=== PATIENT | female | born 1940 | race African-American/Black ===

== ENCOUNTER 2016-08-24 11:21 | Inpatient (IN) | payer OTHER ==
--- NOTE | 2016-08-24 12:21 | C.PDOC ---
History Of Present Illness Patient is a 76 year old female who presents to the ER with a complaint of swollen feet, swollen abdomen, SOB, and abdominal pain for the past 2 weeks as per family who was translating for the patient. Patient's family states she just came from [place] a month ago and are unaware of her PMHx. Denies nausea, vomiting, and diarrhea. Time Seen by Provider: 08/24/16 11:42 Chief Complaint (Nursing): Respiratory Distress History Per: Family History/Exam Limitations: language barrier Onset/Duration Of Symptoms: Days (14) Current Symptoms Are (Timing): Still Present Severity: Moderate Location Of Pain/Discomfort: Diffuse Associated Symptoms: denies: Nausea, Vomiting, Diarrhea Past Medical History Reviewed: Historical Data, Nursing Documentation, Vital Signs Vital Signs: Last Vital Signs Temp 97.4 F L 08/24/16 13:00 Pulse 104 H 08/24/16 13:00 Resp 18 08/24/16 13:00 BP 149/89 08/24/16 13:00 Pulse Ox 96 08/24/16 13:09 - Medical History PMH: HTN Surgical History: No Surg Hx Family History: States: No Known Family Hx - Social History Hx Alcohol Use: No Hx Substance Use: No - Immunization History Hx Tetanus Toxoid Vaccination: Yes Hx Influenza Vaccination: No Hx Pneumococcal Vaccination: No Review Of Systems Except As Marked, All Systems Reviewed And Found Negative. Respiratory: Positive for: Shortness of Breath Gastrointestinal: Positive for: Abdominal Pain, Other (Abdominal swelling). Negative for: Nausea, Vomiting, Diarrhea Musculoskeletal: Positive for: Other (Lower extremity swelling) Physical Exam - Physical Exam Appears: Non-toxic Skin: Normal Color, Warm, Dry Head: Atraumatic, Normacephalic Eye(s): bilateral: Normal Inspection, PERRL, EOMI Oral Mucosa: Moist Neck: Normal ROM Chest: Symmetrical, No Tenderness Cardiovascular: Rhythm Irregular Respiratory: Decreased Breath Sounds (Bilaterally), No Rales, No Rhonchi, No Wheezing Gastrointestinal/Abdominal: Soft, No Tenderness, Distention Extremity: Pedal Edema (+3 bilaterally up to thighs), No Calf Tenderness Pulses: Left Dorsalis Pedis: Normal, Right Dorsalis Pedis: Normal Neurological/Psych: Oriented x3, Normal Speech, Normal Cognition, Normal Motor ED Course And Treatment - Laboratory Results Result Diagrams: 08/24/16 12:19 08/24/16 12:19 O2 Sat by Pulse Oximetry: 96 (on 2L) Pulse Ox Interpretation: Normal Progress Note: Blood work, EKG, and CXR ordered. Lasix IVP administered. Medical Decision Making Medical Decision Making: The patient was informed that EKG shows Afib and states this is new. Cardizem PO and Lovenox SC given as the patient is not unstable. Lasix IV ordered for Acute CHF. Patient reports mild relief of symptoms and resting comfortably. O2 sat is 97% on 2L. Disposition - Disposition Disposition: HOSPITALIZED Disposition Time: 13:18 Condition: FAIR - POA Present On Arrival: None - Clinical Impression Clinical Impression: New onset a-fib, Acute CHF - Scribe Statement The provider has reviewed the documentation as recorded by the Scribjeff Fatima All medical record entries made by the Stivenibjeff were at my direction and personally dictated by me. I have reviewed the chart and agree that the record accurately reflects my personal performance of the history, physical exam, medical decision making, and the department course for this patient. I have also personally directed, reviewed, and agree with the discharge instructions and disposition.
[2016-08-24 12:23] LABS: BASO % 0.4 % (0.0-2.0); EOS % 0.8 % (0.0-4.0); HEMATOCRIT 36.2 % (34.0-47.0); LYMPH # 1.2 K/uL (1.0-4.3); LYMPH % 19.9 % (20.0-40.0); MEAN CELL VOLUME 91.2 fL (81.0-99.0); MEAN CORPUSCULAR HEMOGLOBIN 28.5 pg (27.0-31.0); MEAN CORPUSCULAR HGB CONC 31.2 g/dL (33.0-37.0); MEAN PLATELET VOLUME 8.3 fL (7.2-11.7); MONO # 0.8 K/uL (0.0-0.8); MONO % 14.3 % (0.0-10.0); NRBC % 0.1 % (0.0-2.0); RED CELL DISTRIBUTION WIDTH 17.1 % (11.5-14.5); WHITE BLOOD COUNT 5.9 K/uL (4.8-10.8)
[2016-08-24 12:31] LABS: CHLORIDE 103 mmol/L (98-107); POTASSIUM 4.4 mmol/L (3.6-5.2); SODIUM 142 mmol/L (132-148)
[2016-08-24 12:33] LABS: GFR AFRICAN-AMERICAN > 60
[2016-08-24 12:34] LABS: ALB/GLOB RATIO 0.9 (1.0-2.1); ALKALINE PHOSPHATASE 97 U/L (38-126); ALT/SGPT 17 U/L (9-52); AST/SGOT 28 U/L (14-36); BILIRUBIN,TOTAL 1.7 mg/dL (0.2-1.3); BLOOD UREA NITROGEN 11 mg/dL (7-17); CALCIUM 8.2 mg/dl (8.6-10.4); CARBON DIOXIDE 27 mmol/L (22-30); GLUCOSE,RANDOM 81 mg/dL (65-105); TOTAL PROTEIN 7.3 g/dL (6.3-8.3)
[2016-08-24 12:38] LABS: INR 1.3
[2016-08-24] MEDS ORDERED: Enoxaparin 40 mg Syringe SC STA (13:07)
--- NOTE | 2016-08-24 13:15 | RAD ---
PROCEDURE: CHEST RADIOGRAPH, 1 VIEW HISTORY: chest pain, SOB COMPARISON: None available. FINDINGS: LUNGS: Subsegmental atelectasis right mid and left medial lung bases. . Suspect small right effusion. Left lung base is poorly delineated due to large body habitus PLEURA: No pneumothorax or pleural fluid seen. CARDIOVASCULAR: Cardiomegaly OSSEOUS STRUCTURES: Mild degenerative changes both shoulder girdles VISUALIZED UPPER ABDOMEN: Normal. OTHER FINDINGS: None. IMPRESSION: Subsegmental atelectasis right mid and left medial lung bases. . Suspect small right effusion. Left lung base is poorly delineated due to large body habitus Cardiomegaly.
[2016-08-24] MEDS ORDERED: Enoxaparin 40 mg Syringe ONE (13:21)
[2016-08-24] MEDS ORDERED: Enoxaparin 30 mg Syringe ONE (13:21)
--- NOTE | 2016-08-24 14:39 | CP.PCM.HP ---
<Michael Matt - Last Filed: 08/24/16 15:39> History of Present Illness - History of Present Illness History of Present Illness: H&P for Dr. Sheth 76yo F with unknown PMHx due to poor compliance and follow up here for evaluation of Swollen lower extremities, Abd pain for the past 3 weeks. Patient speaks Gujarati. Family at bedside who helped translate. [place] about 1 month ago. For the past 3 weeks, she has been having increasing shortness of breath and gradual increase in lower extremity swelling and pain. Patient was seeing a physician in [place] who prescribed a medication ( unknown name) and she has not been taking it regularly, last time taken was about 4 weeks ago. Patient denies any chest pain. She is normally able to walk within her home, over the past week she has been getting severely short of breath and is only able to walk 20 steps before SOB. Able to lay down flat when she sleeps. Denies cough. She also c/o some Abd pain, located diffusely but worst in the RUQ, no association with food, no N/V/D. No F/C. No sick contacts. No Headache. Denies chest pain or palpitations. Denies any weight gain PMD: None PMHx: unknown. Denies PSHx: Right hip replacement Family Hx: Denies Social Hx: recently moved to [facility] 1 month ago. Lives with son. Denies TOB. Denies ETOH. Denies illicit drugs. NKDA Meds: one med from [place], unknown name. Does not take it regularly. Last taken 4 weeks ago. Present on Admission - Present on Admission Any Indicators Present on Admission: No Review of Systems - Review of Systems All systems: reviewed and no additional remarkable complaints except - Constitutional Constitutional: absent: Chills, Fever - EENT Eyes: absent: Blurred Vision Nose/Mouth/Throat: absent: Epistaxis - Cardiovascular Cardiovascular: Dyspnea, Dyspnea on Exertion, Edema, Leg Edema, Pedal Edema. absent: Chest Pain, Diaphoresis, Palpitations, Paroxysmal Nocturnal Dyspnea, Rapid Heart Rate - Respiratory Respiratory: absent: Cough - Gastrointestinal Gastrointestinal: Abdominal Pain. absent: Diarrhea, Nausea, Vomiting - Musculoskeletal Musculoskeletal: absent: Muscle Weakness - Integumentary Integumentary: absent: Bleeding Lesions - Neurological Neurological: absent: Abnormal Gait, Abnormal Hearing - Psychiatric Psychiatric: absent: Anxiety Past Patient History - Past Social History Smoking Status: Never Smoked - CARDIAC Hx Hypertension: Yes - PSYCHIATRIC Hx Substance Use: No - SURGICAL HISTORY Hx Orthopedic Surgery: Yes (RT hip) - ANESTHESIA Hx Anesthesia: Yes Hx Anesthesia Reactions: No Meds Allergies/Adverse Reactions: Allergies Allergy/AdvReac Type Severity Reaction Status Date / Time No Known Allergies Allergy Unverified 08/24/16 11:33 Physical Exam - Constitutional Appears: Well, No Acute Distress - Head Exam Head Exam: ATRAUMATIC, NORMAL INSPECTION, NORMOCEPHALIC - Eye Exam Eye Exam: EOMI, Normal appearance. absent: Scleral icterus - ENT Exam ENT Exam: Mucous Membranes Moist - Respiratory Exam Respiratory Exam: Clear to Auscultation Bilateral Additional comments: Shallow breathing. No Wheezes, no ronchi - Cardiovascular Exam Cardiovascular Exam: Irregular Rhythm Additional comments: Hepatojugular reflex illicited. Reflex JVD seen. - GI/Abdominal Exam GI & Abdominal Exam: Soft, Tenderness (RUQ pain). absent: Guarding Additional comments: Dependent 1+ pitting edema - Extremities Exam Extremities exam: Positive for: pedal edema, tenderness (Pretibial tenderness). Negative for: calf tenderness Additional comments: Severe bilateral lower extremity 3+ pitting edema - Neurological Exam Neurological exam: Alert, Oriented x3 - Psychiatric Exam Psychiatric exam: Normal Affect, Normal Mood - Skin Skin Exam: Dry, Intact, Normal Color, Warm Results - Vital Signs Recent Vital Signs: Last Vital Signs Temp 97.4 F L 08/24/16 13:00 Pulse 102 H 08/24/16 13:29 Resp 24 08/24/16 13:29 BP 149/89 08/24/16 13:29 Pulse Ox 95 08/24/16 13:29 - Labs Result Diagrams: 08/24/16 12:19 08/24/16 12:19 Assessment & Plan - Assessment and Plan (Free Text) Assessment: 76yo F with no diagnosed PMHx here for eval of LE edema, Dyspnea on exertion. New onset A.Fib. 1. New CHF CXR - Cardiomegaly; Subsegmental R mid and lower atelectasis. Poss R pleural effusion. Lasix 20mg IV q12 f/u ECHO Trop neg on admission. F/u Trop q8 x 2 f/u TSH f/u HbA1C f/u Lipid Panel Head of bed elevation >30degrees Start Lisinopril 5mg Daily Will start Beta Yomaira after reducing cardiac load PT eval and treat Cardio consult requested, Dr. Allan Strict I&O Repeat CXR PA/Lat in AM 2. New Onset A.Fib EKG - Atrial Fibrillation. Tachycardic 102-109 Cardio consult requested, Dr. Allan Lovenox 70mg SC q12 Cardizem 30mg PO TID 3. Abd pain Dependent pitting edema mild T.Bili elevation 1.7 f/u Abd US Zofran prn 4. PPx Theraputic Lovenox No SCDs Pepcid 20mg BID Discussed case with Dr. Meryl Matt PGY1 <Brett Sheth - Last Filed: 08/24/16 16:28> Results - Vital Signs Recent Vital Signs: Last Vital Signs Temp 98.1 F 08/24/16 15:51 Pulse 89 08/24/16 15:51 Resp 20 08/24/16 15:51 BP 142/91 H 08/24/16 15:51 Pulse Ox 98 08/24/16 15:51 - Labs Result Diagrams: 08/24/16 12:19 08/24/16 12:19 Attending/Attestation - Attestation I have personally seen and examined this patient.: Yes I have fully participated in the care of the patient.: Yes I have reviewed all pertinent clinical information: Yes Notes (Text): 08/24/16 16:26 Medical attending: Patient was seen and examined by me, agree with the above note by medical affairs director. The patient was seen in ER bed 15. Family members were present as well. We reviewed the chest x-ray, as well as the EKG. It appears that the patient has congestive heart failure and will need IV Lasix to help with pulmonary congestion. Were to start a JAKE inhibitor and tomorrow if she's doing well start a beta yomaira. The patient will need echocardiogram, currently the patient is can be given Lovenox subcutaneous twice a day for anticoagulation. I explained to the family members the findings on EKG as well as the chest x-ray Thank you very much, Brett Sheth
[2016-08-24] MEDS: Enoxaparin 80 mg Syringe SC SCH (21:12)
[2016-08-25 06:30] LABS: BASO % 0.5 % (0.0-2.0); EOS # 0.1 K/uL (0.0-0.7); EOS % 1.7 % (0.0-4.0); HEMATOCRIT 33.5 % (34.0-47.0); LYMPH # 1.1 K/uL (1.0-4.3); LYMPH % 19.8 % (20.0-40.0); MEAN CELL VOLUME 90.5 fL (81.0-99.0); MEAN CORPUSCULAR HEMOGLOBIN 28.9 pg (27.0-31.0); MEAN CORPUSCULAR HGB CONC 31.9 g/dL (33.0-37.0); MEAN PLATELET VOLUME 8.4 fL (7.2-11.7); MONO # 0.8 K/uL (0.0-0.8); MONO % 13.7 % (0.0-10.0); RED CELL DISTRIBUTION WIDTH 17.2 % (11.5-14.5); WHITE BLOOD COUNT 5.5 K/uL (4.8-10.8)
[2016-08-25 06:36] LABS: CHLORIDE 101 mmol/L (98-107); POTASSIUM 3.5 mmol/L (3.6-5.2); SODIUM 143 mmol/L (132-148)
[2016-08-25 06:37] LABS: INR 1.3
[2016-08-25 06:38] LABS: ALB/GLOB RATIO 0.9 (1.0-2.1); BILIRUBIN,TOTAL 1.7 mg/dL (0.2-1.3); CARBON DIOXIDE 31 mmol/L (22-30); CHOLESTEROL 112 mg/dL (0-199); GFR AFRICAN-AMERICAN > 60; TOTAL PROTEIN 6.7 g/dL (6.3-8.3)
[2016-08-25 06:39] LABS: ALKALINE PHOSPHATASE 84 U/L (38-126); ALT/SGPT 21 U/L (9-52); AST/SGOT 25 U/L (14-36); BLOOD UREA NITROGEN 10 mg/dL (7-17); CALCIUM 7.8 mg/dl (8.6-10.4); GLUCOSE,RANDOM 80 mg/dL (65-105)
--- NOTE | 2016-08-25 09:55 | CP.PCM.PN ---
<GonzalesMervin aguilar H - Last Filed: 08/25/16 16:52> Subjective - Date & Time of Evaluation Date of Evaluation: 08/25/16 Time of Evaluation: 14:00 - Subjective Subjective: Dr. Sheth progress note: Patient seen in room with family members present translating. She says she came to the hospital because of swelling in her legs with the right leg more swollen than the left and also complaining of distended abdomen as well. She denies having any chest pain. She also denies palpitations, shortness of breath , nausea, vomiting, diarrhea, or constipation. Objective - Vital Signs/Intake and Output Vital Signs (last 24 hours): Temp Pulse Resp BP Pulse Ox 97.5 F L 91 H 20 139/82 96 08/25/16 07:00 08/25/16 07:00 08/25/16 07:00 08/25/16 07:00 08/25/16 07:00 Intake and Output: 08/25/16 08/25/16 06:59 18:59 Intake Total 0 Balance 0 - Medications Medications: Current Medications Diltiazem HCl (Cardizem) 30 mg PO TID [facility] Last Admin: 08/24/16 17:39 Dose: 30 mg Enoxaparin Sodium (Lovenox) 70 mg SC Q12H [facility] Last Admin: 08/24/16 21:12 Dose: 70 mg Famotidine (Pepcid) 20 mg PO BID [facility] Last Admin: 08/24/16 17:38 Dose: 20 mg Furosemide (Lasix) 20 mg IVP Q12 [facility] Last Admin: 08/24/16 21:12 Dose: 20 mg Lisinopril (Zestril) 5 mg PO DAILY [facility] Ondansetron HCl (Zofran Inj) 4 mg IVP Q6 PRN PRN Reason: Nausea/Vomiting Potassium Chloride (K-Dur 20 Meq Er Tab) 40 meq PO DAILY [facility] - Labs Labs: 08/25/16 06:06 08/25/16 06:06 PT 15.1 SECONDS (9.7-12.2) H 08/25/16 06:06 INR 1.3 08/25/16 06:06 APTT 43 SECONDS (21-34) H D 08/25/16 06:06 - Constitutional Appears: Non-toxic, No Acute Distress - Head Exam Head Exam: ATRAUMATIC, NORMAL INSPECTION, NORMOCEPHALIC - Eye Exam Eye Exam: Normal appearance, PERRL Pupil Exam: NORMAL ACCOMODATION - Respiratory Exam Respiratory Exam: Decreased Breath Sounds, Clear to Ausculation Bilateral, NORMAL BREATHING PATTERN. absent: Rales, Rhonchi, Wheezes, Respiratory Distress - Cardiovascular Exam Cardiovascular Exam: REGULAR RHYTHM, RRR, +S1, +S2, Murmur. absent: Gallop, Rubs - GI/Abdominal Exam GI & Abdominal Exam: Soft. absent: Tenderness - Extremities Exam Extremities Exam: Calf Tenderness, Pedal Edema. absent: Normal Inspection - Neurological Exam Neurological Exam: Alert, Awake - Skin Skin Exam: Dry, Normal Color Assessment and Plan - Assessment and Plan (Free Text) Assessment: 1. Fluid over loaded CHF suspected right sided heart failure 08/25: Dr. Allan consulted, continue lasix, echo is still pending, lipid panel is unremarkable, TSH is 14.00, however free T4 1.35 and total T3 is 1.19. have ordered a venous duplex to rule out DVT. Heart failure due to hypothyroidism. Previous note: CXR - Cardiomegaly; Subsegmental R mid and lower atelectasis. Poss R pleural effusion. Lasix 20mg IV q12 f/u ECHO Trop neg on admission. F/u Trop q8 x 2 f/u TSH f/u HbA1C f/u Lipid Panel Head of bed elevation >30degrees Start Lisinopril 5mg Daily Will start Beta Yomaira after reducing cardiac load PT eval and treat Cardio consult requested, Dr. Allan Strict I&O Repeat CXR PA/Lat in AM 2. New Onset A.Fib 08/25: Continue to monitor on tele, Lovenox and Cardizem EKG - Atrial Fibrillation. Tachycardic 102-109 Cardio consult requested, Dr. Allan Lovenox 70mg SC q12 Cardizem 30mg PO TID 3. Abd pain 08/25: ABD US is negative for any acute process, this again could be fluid overload from heart failure. follow up cmp tomorrow. Dependent pitting edema mild T.Bili elevation 1.7 f/u Abd US Zofran prn 4. PPx Theraputic Lovenox No SCDs Pepcid 20mg BID <Brett Sheth - Last Filed: 08/26/16 07:18> Objective - Vital Signs/Intake and Output Vital Signs (last 24 hours): Temp Pulse Resp BP Pulse Ox 97.4 F L 64 20 98/67 L 99 08/26/16 00:00 08/26/16 00:00 08/26/16 00:00 08/26/16 00:00 08/26/16 00:00 Intake and Output: 08/26/16 08/26/16 06:59 18:59 Intake Total 120 Balance 120 - Medications Medications: Current Medications Diltiazem HCl (Cardizem) 60 mg PO TID [facility] Last Admin: 08/25/16 17:29 Dose: 60 mg Enoxaparin Sodium (Lovenox) 70 mg SC Q12H [facility] Last Admin: 08/25/16 19:42 Dose: 70 mg Famotidine (Pepcid) 20 mg PO BID [facility] Last Admin: 08/25/16 17:29 Dose: 20 mg Furosemide (Lasix) 20 mg IVP Q12 [facility] Last Admin: 08/25/16 21:33 Dose: 20 mg Lisinopril (Zestril) 5 mg PO DAILY [facility] Last Admin: 08/25/16 10:38 Dose: 5 mg Ondansetron HCl (Zofran Inj) 4 mg IVP Q6 PRN PRN Reason: Nausea/Vomiting Pneumococcal Polyvalent Vaccine (Pneumovax 23 Vaccine) 0.5 ml IM .ONCE ONE Stop: 08/26/16 10:01 Potassium Chloride (K-Dur 20 Meq Er Tab) 40 meq PO DAILY [facility] Last Admin: 08/25/16 10:38 Dose: 40 meq - Labs Labs: 08/25/16 06:06 08/25/16 06:06 PT 15.1 SECONDS (9.7-12.2) H 08/25/16 06:06 INR 1.3 08/25/16 06:06 APTT 43 SECONDS (21-34) H D 08/25/16 06:06 Attending/Attestation - Attestation I have personally seen and examined this patient.: Yes I have fully participated in the care of the patient.: Yes I have reviewed all pertinent clinical information, including history, physical exam and plan: Yes Notes (Text): Medical Attending: Patient was seen and examined by me. Agree with the above note by the resident. The patient was reported by family at bedside to look and feel better. She is still in atrial fibrillation and HR is 80s to 90s on telemetry. There was a lower extremity venous study done and there is a positive DVT reported. Patient is already on lovenox SC BID. Not tachycardic, however will need echo and CTA - while she does not have C/P this morning, she does have shortness of breath.
[2016-08-25] MEDS: Potassium Chloride 20 mEq ER Tab PO SCH (10:38)
[2016-08-25] MEDS: Enoxaparin 80 mg Syringe SC SCH ×2 (10:38→19:42)
--- NOTE | 2016-08-25 11:25 | CP.PCM.CON ---
History of Present Illness - History of Present Illness History of Present Illness: Patient presents with abdominal pain. found to be in atrial fibrillation. This is a new diagnosis. In [place] month (originally lived in [place]). family is at bedside Review of Systems - Review of Systems Systems not reviewed;Unavailable: Language Barrier Past Patient History - Past Medical History & Family History Past Medical History?: No - Past Social History Smoking Status: Never Smoked - CARDIAC Hx Hypertension: Yes - MUSCULOSKELETAL/RHEUMATOLOGICAL Hx Falls: Yes - PSYCHIATRIC Hx Substance Use: No - SURGICAL HISTORY Hx Orthopedic Surgery: Yes (RT hip) - ANESTHESIA Hx Anesthesia: Yes Hx Anesthesia Reactions: No Meds Allergies/Adverse Reactions: Allergies Allergy/AdvReac Type Severity Reaction Status Date / Time No Known Allergies Allergy Unverified 08/24/16 11:33 - Medications Medications: Current Medications Diltiazem HCl (Cardizem) 30 mg PO TID [facility] Last Admin: 08/25/16 10:38 Dose: 30 mg Diltiazem HCl (Cardizem) 60 mg PO TID [facility] Enoxaparin Sodium (Lovenox) 70 mg SC Q12H [facility] Last Admin: 08/25/16 10:38 Dose: 70 mg Famotidine (Pepcid) 20 mg PO BID [facility] Last Admin: 08/25/16 10:38 Dose: 20 mg Furosemide (Lasix) 20 mg IVP Q12 [facility] Last Admin: 08/25/16 10:37 Dose: 20 mg Lisinopril (Zestril) 5 mg PO DAILY [facility] Last Admin: 08/25/16 10:38 Dose: 5 mg Ondansetron HCl (Zofran Inj) 4 mg IVP Q6 PRN PRN Reason: Nausea/Vomiting Potassium Chloride (K-Dur 20 Meq Er Tab) 40 meq PO DAILY [facility] Last Admin: 08/25/16 10:38 Dose: 40 meq Physical Exam - Constitutional Appears: Non-toxic - Head Exam Head Exam: NORMAL INSPECTION - Eye Exam Eye Exam: Normal appearance - ENT Exam ENT Exam: Mucous Membranes Moist - Neck Exam Neck exam: Positive for: Full Rom - Respiratory Exam Respiratory Exam: Decreased Breath Sounds - Cardiovascular Exam Cardiovascular Exam: Irregular Rhythm - GI/Abdominal Exam GI & Abdominal Exam: Normal Bowel Sounds - Rectal Exam Rectal Exam: Deferred - Extremities Exam Extremities exam: Negative for: pedal edema - Back Exam Back exam: NORMAL INSPECTION - Neurological Exam Neurological exam: Alert, Oriented x3 - Psychiatric Exam Psychiatric exam: Normal Affect - Skin Skin Exam: Normal Color Results - Vital Signs Recent Vital Signs: Last Vital Signs Temp 97.5 F L 08/25/16 07:00 Pulse 91 H 08/25/16 07:00 Resp 20 08/25/16 07:00 BP 139/82 08/25/16 10:37 Pulse Ox 96 08/25/16 07:00 - Labs Result Diagrams: 08/25/16 06:06 08/25/16 06:06 Labs: Laboratory Results - last 24 hr 08/25/16 08/25/16 00:11 06:06 WBC 5.5 RBC 3.70 L Hgb 10.7 L Hct 33.5 L MCV 90.5 MCH 28.9 MCHC 31.9 L RDW 17.2 H Plt Count 196 MPV 8.4 Neut % (Auto) 64.3 Lymph % (Auto) 19.8 L [place] % (Auto) 13.7 H Eos % (Auto) 1.7 Baso % (Auto) 0.5 Neut # 3.5 Lymph # 1.1 [place] # 0.8 Eos # 0.1 Baso # 0.0 PT 15.1 H INR 1.3 APTT 43 H D Sodium 143 Potassium 3.5 L Chloride 101 Carbon Dioxide 31 H Anion Gap 15 BUN 10 Creatinine 0.7 Est GFR ( Amer) > 60 Est GFR (Non-Af Amer) > 60 Random Glucose 80 Calcium 7.8 L Total Bilirubin 1.7 H AST 25 ALT 21 Alkaline Phosphatase 84 Total Creatine Kinase 38 42 CK-MB (Mass) 0.79 0.79 Troponin I, Quant < 0.0120 < 0.0120 Total Protein 6.7 Albumin 3.1 L Globulin 3.6 Albumin/Globulin Ratio 0.9 L Triglycerides 63 Cholesterol 112 LDL Cholesterol Direct 69 HDL Cholesterol 31 TSH 3rd Generation 14.00 H - EKG Data EKG Interpreted by: Myself Assessment & Plan (1) Atrial fibrillation Assessment and Plan: check echocardiogram. increase diltiazem. patient likely needs anticoagulation to reduce risk of CVA. Status: Acute
--- NOTE | 2016-08-25 13:24 | RAD ---
HISTORY: interval changes. Acute CHF COMPARISON: No prior. TECHNIQUE: Chest PA and lateral FINDINGS: LUNGS: Linear subsegmental atelectasis and or scarring right mid lung field. Questionable right-sided effusion PLEURA: . No pneumothorax apparent. CARDIOVASCULAR: Marked cardiomegaly. OSSEOUS STRUCTURES: No significant abnormalities. VISUALIZED UPPER ABDOMEN: Normal. OTHER FINDINGS: None. IMPRESSION: Linear subsegmental atelectasis and or scarring right mid lung field. Questionable right-sided effusion Marked cardiomegaly
--- NOTE | 2016-08-25 14:34 | US ---
HISTORY: Abd pain. Elevated T. Bili COMPARISON: None. TECHNIQUE: Sonographic evaluation of the abdomen. Study is limited FINDINGS: LIVER: Measures 12.75 cm. Heterogeneous somewhat decreased echogenicity of the liver parenchyma. Slightly nodular contour. No obvious hepatic mass or collection. Ascites is present . Rule out cirrhosis GALLBLADDER: There is a tiny echogenic focus within the gallbladder lumen that may represent study calculus. . Gallbladder wall is thickened at 8.4 mm with positive sonographic Clark sign. Findings may represent acute cholecystitis. Clinical correlation recommended COMMON BILE DUCT: Slightly prominent measuring 6.8 mm which could be secondary to advanced age as no definitive intraductal stone identified. . PANCREAS: The pancreas is slightly heterogeneous in appearance nonspecific RIGHT KIDNEY: Measures 8.5 x 4.5 x 3.5cm. Normal echogenicity. No calculus, mass, or hydronephrosis. LEFT KIDNEY: Measures 8.4 x 4.4 x 3.5cm. Normal echogenicity. No calculus, mass, or hydronephrosis. SPLEEN: Normal in size measuring approximately 7.6 cm. No mass collection or calcification AORTA: No aneurysmal dilatation. IVC: Unremarkable. OTHER FINDINGS: None. IMPRESSION: The liver exhibits slightly nodular contour and heterogeneous echotexture with small amount of ascites. Clinical correlation recommended. Probable cholelithiasis with wall thickening and positive sonographic Clark sign. Rule out acute cholecystitis.
[2016-08-25] MEDS ORDERED: Iodixanol 320 MG/ML 100 ML BOTTLE IV ONE (18:40)
--- NOTE | 2016-08-25 23:30 | CARD ---
APPROVED REPORT EKG Measurement Heart [id number] <Conclusion> Atrial fibrillation with premature ventricular or aberrantly conducted complexes Rightward axis Low voltage QRS Nonspecific T wave abnormality, probably digitalis effect Prolonged QT Abnormal ECG
[2016-08-26 07:05] LABS: BASO % 0.6 % (0.0-2.0); EOS # 0.1 K/uL (0.0-0.7); EOS % 1.5 % (0.0-4.0); HEMATOCRIT 32.6 % (34.0-47.0); LYMPH # 1.2 K/uL (1.0-4.3); LYMPH % 24.2 % (20.0-40.0); MEAN CELL VOLUME 90.5 fL (81.0-99.0); MEAN CORPUSCULAR HEMOGLOBIN 28.4 pg (27.0-31.0); MEAN CORPUSCULAR HGB CONC 31.4 g/dL (33.0-37.0); MEAN PLATELET VOLUME 8.2 fL (7.2-11.7); MONO % 19.3 % (0.0-10.0); NRBC % 0.1 % (0.0-2.0); RED CELL DISTRIBUTION WIDTH 17.1 % (11.5-14.5); WHITE BLOOD COUNT 5.1 K/uL (4.8-10.8)
[2016-08-26 07:25] LABS: CHLORIDE 103 mmol/L (98-107)
[2016-08-26 07:26] LABS: SODIUM 140 mmol/L (132-148)
[2016-08-26 07:28] LABS: ALB/GLOB RATIO 0.9 (1.0-2.1); ALKALINE PHOSPHATASE 84 U/L (38-126); AST/SGOT 24 U/L (14-36); BILIRUBIN,TOTAL 1.4 mg/dL (0.2-1.3); BLOOD UREA NITROGEN 12 mg/dL (7-17); CARBON DIOXIDE 29 mmol/L (22-30); GFR AFRICAN-AMERICAN > 60; TOTAL PROTEIN 6.7 g/dL (6.3-8.3)
[2016-08-26 07:29] LABS: ALT/SGPT 21 U/L (9-52); CALCIUM 7.6 mg/dl (8.6-10.4); GLUCOSE,RANDOM 86 mg/dL (65-105); MAGNESIUM 1.8 mg/dL (1.6-2.3); PHOSPHOROUS 4.4 mg/dL (2.5-4.5)
--- NOTE | 2016-08-26 07:39 | CP.PCM.PN ---
Subjective - Date & Time of Evaluation Date of Evaluation: 08/26/16 Time of Evaluation: 11:45 - Subjective Subjective: PGY 1 Medicine Note- Dr. Sheth's service Pt seen and examined in no acute distress. Patient's family member present bedside. Patient was inquiring about erythema of legs. Patient denies any complaints at this time including chest pain, palpitations, fevers, chills, abdominal pain, nausea, vomiting, diarrhea or constipation at this time. Objective - Vital Signs/Intake and Output Vital Signs (last 24 hours): Temp Pulse Resp BP Pulse Ox 97.4 F L 64 20 98/67 L 99 08/26/16 00:00 08/26/16 00:00 08/26/16 00:00 08/26/16 00:00 08/26/16 00:00 Intake and Output: 08/26/16 08/26/16 06:59 18:59 Intake Total 120 Balance 120 - Medications Medications: Current Medications Diltiazem HCl (Cardizem) 60 mg PO TID [facility] Last Admin: 08/25/16 17:29 Dose: 60 mg Enoxaparin Sodium (Lovenox) 70 mg SC Q12H [facility] Last Admin: 08/25/16 19:42 Dose: 70 mg Famotidine (Pepcid) 20 mg PO BID [facility] Last Admin: 08/25/16 17:29 Dose: 20 mg Furosemide (Lasix) 20 mg IVP Q12 [facility] Last Admin: 08/25/16 21:33 Dose: 20 mg Lisinopril (Zestril) 5 mg PO DAILY [facility] Last Admin: 08/25/16 10:38 Dose: 5 mg Ondansetron HCl (Zofran Inj) 4 mg IVP Q6 PRN PRN Reason: Nausea/Vomiting Pneumococcal Polyvalent Vaccine (Pneumovax 23 Vaccine) 0.5 ml IM .ONCE ONE Stop: 08/26/16 10:01 Potassium Chloride (K-Dur 20 Meq Er Tab) 40 meq PO DAILY [facility] Last Admin: 08/25/16 10:38 Dose: 40 meq - Labs Labs: 08/26/16 06:58 08/26/16 06:58 PT 15.1 SECONDS (9.7-12.2) H 08/25/16 06:06 INR 1.3 08/25/16 06:06 APTT 43 SECONDS (21-34) H D 08/25/16 06:06 - Constitutional Appears: Non-toxic, No Acute Distress - Head Exam Head Exam: ATRAUMATIC, NORMAL INSPECTION, NORMOCEPHALIC - Eye Exam Eye Exam: EOMI, Normal appearance, PERRL Pupil Exam: NORMAL ACCOMODATION - ENT Exam ENT Exam: Mucous Membranes Moist, Normal Exam - Neck Exam Neck Exam: Full ROM, Normal Inspection - Respiratory Exam Respiratory Exam: NORMAL BREATHING PATTERN. absent: Wheezes - Cardiovascular Exam Cardiovascular Exam: +S1, +S2 - GI/Abdominal Exam GI & Abdominal Exam: Soft, Normal Bowel Sounds - Extremities Exam Extremities Exam: Full ROM, Normal Capillary Refill, Normal Inspection, Tenderness (erythema) - Neurological Exam Neurological Exam: Alert, Awake, CN II-XII Intact, Oriented x3 - Psychiatric Exam Psychiatric exam: Normal Affect, Normal Mood - Skin Skin Exam: Dry, Erythema, Intact Assessment and Plan - Assessment and Plan (Free Text) Plan: Assessment: Fluid over loaded CHF suspected right sided heart failure 08/25: Dr. Allan consulted: Diltiazem increased. F/U reccs Previous note: CXR - Cardiomegaly; Subsegmental R mid and lower atelectasis. Poss R pleural effusion. Lasix 20mg IV q12 f/u ECHO Trop neg x3 TSH 14 HbA1C 6.1 Lipid Panel: Triglycerides 63, Cholesterol 112, LDL 69, HDL 31 Head of bed elevation >30degrees Lisinopril 5mg Daily Strict I&O New Onset A.Fib 08/25: Continue to monitor on tele, Lovenox and Cardizem EKG - Atrial Fibrillation. Rate controlled on cardizem 30 mg PO TIZ Cardio consult requested, Dr. Allan Lovenox 70mg SC q12 Abd pain 08/25: ABD US is negative for any acute process, this again could be fluid overload from heart failure. Dependent pitting edema mild T.Bili elevation 1.7 Abd US- liver exhibits slightly nodular contour and heterogeneous echo texture with small amount of ascites. Prob cholelithiasis with wall thickening and positive sonograpic jaramillo's sign. rule out acute cholecystitis. No leukocytosis or fevers noted. Zofran prn FFU GGTP and Direct bili. May need Surg consult. Monitor overnight. DVT On therapeutic lovenox Hypothyroidism Levothyroxine 50 mcg daily in the AM Monitor Prophylactic measure Theraputic Lovenox No SCDs Pepcid 20mg BID
[2016-08-26] MEDS: Enoxaparin 80 mg Syringe SC SCH ×2 (08:56→19:42)
--- NOTE | 2016-08-26 08:58 | VASCLAB ---
PROCEDURE: Lower Extremity Venous Duplex Exam. HISTORY: Post Right hip Fx/Orif, B/L LE Edema, Suspected DVT PRIORS: None. TECHNIQUE: Bilateral common femoral, femoral, popliteal and posterior tibial, peroneal and great saphenous veins were evaluated. Flow was assessed with color Doppler, compressibility, assessment of phasic flow and augmentation response. Report prepared by Kirill Escobar, RVT FINDINGS: RIGHT: 1. Common Femoral Vein: 1.1. Compressibility - Fully compressible: Thrombus - None : Flow - Phasic: Augmentation -Normal: Reflux - . 2. Femoral Vein: 2.1. Compressibility - Fully compressible: Thrombus - None : Flow - Phasic: Augmentation -Normal: Reflux - . 3. Popliteal Vein: 3.1. Compressibility - Fully compressible: Thrombus - None : Flow - Phasic: Augmentation -Normal: Reflux - . 4. Posterior Tibial Vein: 4.1. Compressibility - Incompressible: Thrombus - Acute: Flow - : Augmentation -: Reflux - . 5. Peroneal Vein: 5.1. Compressibility - Incompressible: Thrombus - Acute: Flow - : Augmentation -l: Reflux -. 6. Great Saphenous Vein: 6.1. Compressibility - Fully compressible: Thrombus - None: Flow - : Augmentation - : Reflux - . LEFT: 1. Common Femoral Vein: 1.1. Compressibility - Fully compressible: Thrombus - None: Flow - Phasic: Augmentation -Normal: Reflux - . 2. Femoral Vein: 2.1. Compressibility - Fully compressible: Thrombus - None: Flow - Phasic: Augmentation -Normal: Reflux - . 3. Popliteal Vein: 3.1. Compressibility - Fully compressible: Thrombus - None : Flow - Phasic: Augmentation -Normal: Reflux - . 4. Posterior Tibial Vein: 4.1. Compressibility - Fully compressible: Thrombus - None: Flow - : Augmentation -: Reflux - . 5. Peroneal Vein: 5.1. Compressibility - Fully compressible: Thrombus - None: Flow - : Augmentation -: Reflux - . 6. Great Saphenous Vein: 6.1. Compressibility - Fully compressible: Thrombus - None: Flow - : Augmentation - : Reflux - . OTHER FINDINGS: Right: None significant. Left: None significant. IMPRESSION: Right: One of the posterior tibial and both of the peroneal veins were non compressible with echolucent THROMBUS around the mid calf area. There was evidence of infrapopliteal deep vein thrombosis of the right lower extremity. Left: No evidence of deep or superficial vein thrombosis of the left lower extremity.
[2016-08-26] MEDS: Potassium Chloride 20 mEq ER Tab PO SCH (09:22)
[2016-08-26] MEDS ORDERED: Pneumococcal 23-Valent Vaccine IM ONE (10:00)
--- NOTE | 2016-08-26 10:04 | CT ---
PROCEDURE: CT Chest with contrast (Pulmonary Angiogram) HISTORY: rule out PE, positive DVT, right sided heart failure COMPARISON: None available. TECHNIQUE: Axial computed tomography images were obtained of the chest in the pulmonary arterial phase of enhancement. Coronal and sagittal reformatted images were created and reviewed. Intravenous contrast dose: 100 cc Radiation dose: Total exam DLP = 347.7 mGy-cm. This CT exam was performed using one or more of the following dose reduction techniques: Automated exposure control, adjustment of the mA and/or kV according to patient size, and/or use of iterative reconstruction technique. FINDINGS: PULMONARY ARTERIES: No central, lobar and proximal segmental filling defects identified. AORTA: No definite aneurysm. Otherwise minimal contrast seen in the aorta. LUNGS: This opacity associated with bilateral pleural effusions right greater than left. Mosaic attenuation throughout both lungs is suggestive of small airways disease. Patchy airspace opacities in the right middle lobe and the inferior left upper lobe noted. PLEURAL SPACES: Moderate to large size pleural effusion on the right. Small pleural effusion on the left. There is associated compressive atelectasis and/or pneumonia. HEART: Enlarged heart. Small pericardial effusion. Coronary artery calcifications. LYMPH NODES: No lymphadenopathy. BONES, CHEST WALL: Anterior soft tissues of the right axilla and the right breast appears edematous. This is an asymmetric finding. OTHER FINDINGS: Generalized soft tissue edema. Mild perihepatic and perisplenic ascites. Reflux contrast into the hepatic veins noted. Visualized portions of the spleen, adrenal glands, pancreas, kidneys appear grossly unremarkable. Small hiatal hernia. Collapsed stomach limiting evaluation. Minimal visualization of the bowel. IMPRESSION: No central, lobar and proximal segmental pulmonary arterial filling defects noted. Moderate to large right-sided and small left-sided pleural effusion with associated compressive atelectasis and/or pneumonia. Mosaic attenuation throughout both lungs suggestive of small airways disease with patchy airspace opacities. Enlarged heart with a small pericardial effusion. Anterior soft tissues the right axilla and right breast appears significantly edematous. Mild abdominal ascites partially visualized. Generalized anasarca. Please note that this report is in general agreement with the preliminary report provided by [facility].
--- NOTE | 2016-08-26 11:46 | CARD ---
APPROVED REPORT EXAM: Two-dimensional and M-mode echocardiogram with Doppler and color Doppler. Other Information Quality : GoodRhythm : NSR INDICATION Dyspnea Congestive Heart Failure M-Mode DIMENSIONS RVDd2.03 (2.1-3.2cm)Left Atrium (MM)5.31 (2.5-4.0cm) IVSd0.70 (0.7-1.1cm)Aortic Root2.32 (2.2-3.7cm) LVDd4.02 (4.0-5.6cm)Aortic Cusp Exc.1.36 (1.5-2.0cm) PWd0.85 (0.7-1.1cm)FS (%) 26 % LVDs2.99 (2.0-3.8cm)LVEF (%)40 (>50%) Aortic Valve AoV Peak Hpyokxuw530.3cm/Ger Peak GR.8mmHg Mitral Valve MV E Kgwahvga320.2cm/sMV A Kmxrgkeu431.3cm/sE/A ratio1.3 TDI E/Lateral E'0.0E/Medial E'0.0 Tricuspid Valve TR Peak [id number]/sTR Peak Gr.[id number] LEFT VENTRICLE The left ventricle is normal size. There is normal left ventricular wall thickness. The systolic function is moderately impaired. There is a flattened septum No left ventricle thrombus noted on this study. RIGHT VENTRICLE The right ventricle is mildly dilated. There is normal right ventricular wall thickness. RV Systolic function is mildly reduced. ATRIA The left atrium is severely dilated. The right atrium is severely dilated. AORTIC VALVE The aortic valve is moderately thickened. No aortic regurgitation is present. There is no aortic valvular stenosis. MITRAL VALVE The mitral valve is moderately thickened. Mitral regurgitation is mild to moderate. TRICUSPID VALVE There is moderate to severe tricuspid regurgitation. GREAT VESSELS The IVC is dilated. PERICARDIAL EFFUSION There is a trace loculated anterior pericardial effusion. <Conclusion> The left ventricle is normal size. There is normal left ventricular wall thickness. The systolic function is moderately impaired. There is a flattened septum Mitral regurgitation is mild to moderate. There is moderate to severe tricuspid regurgitation.
--- NOTE | 2016-08-26 18:06 | CARD ---
APPROVED REPORT EKG Measurement Heart [id number] <Conclusion> Atrial fibrillation Rightward axis Low voltage QRS Nonspecific T wave abnormality, probably digitalis effect Prolonged QT Abnormal ECG
--- NOTE | 2016-08-26 18:08 | CARD ---
APPROVED REPORT EKG Measurement Heart [id number] <Conclusion> Atrial fibrillation with rapid ventricular response Rightward axis Low voltage QRS Abnormal ECG
[2016-08-27 06:45] LABS: BASO % 0.2 % (0.0-2.0); EOS # 0.1 K/uL (0.0-0.7); EOS % 1.1 % (0.0-4.0); HEMATOCRIT 36.2 % (34.0-47.0); LYMPH # 1.3 K/uL (1.0-4.3); LYMPH % 14.9 % (20.0-40.0); MEAN CELL VOLUME 89.9 fL (81.0-99.0); MEAN CORPUSCULAR HEMOGLOBIN 28.8 pg (27.0-31.0); MEAN PLATELET VOLUME 8.4 fL (7.2-11.7); MONO # 0.9 K/uL (0.0-0.8); MONO % 9.6 % (0.0-10.0); RED CELL DISTRIBUTION WIDTH 16.7 % (11.5-14.5); WHITE BLOOD COUNT 8.9 K/uL (4.8-10.8)
[2016-08-27 07:47] LABS: ALB/GLOB RATIO 0.8 (1.0-2.1); ALKALINE PHOSPHATASE 84 U/L (38-126); ALT/SGPT 21 U/L (9-52); AST/SGOT 20 U/L (14-36); BILIRUBIN,DIRECT 0.7 mg/dL (0.0-0.4); BILIRUBIN,TOTAL 1.7 mg/dL (0.2-1.3); BLOOD UREA NITROGEN 12 mg/dL (7-17); CALCIUM 7.7 mg/dl (8.6-10.4); CARBON DIOXIDE 29 mmol/L (22-30); GFR AFRICAN-AMERICAN > 60; GLUCOSE,RANDOM 92 mg/dL (65-105); PHOSPHOROUS 4.2 mg/dL (2.5-4.5); TOTAL PROTEIN 7.4 g/dL (6.3-8.3)
[2016-08-27 07:48] LABS: MAGNESIUM 1.7 mg/dL (1.6-2.3)
--- NOTE | 2016-08-27 08:28 | CP.PCM.PN ---
Subjective - Date & Time of Evaluation Date of Evaluation: 08/26/16 Time of Evaluation: 19:00 - Subjective Subjective: heart rate noted. decrease cardizem to 30 mg q6 Objective - Vital Signs/Intake and Output Vital Signs (last 24 hours): Temp Pulse Resp BP Pulse Ox 98.1 F 86 18 134/85 97 08/27/16 07:27 08/27/16 07:27 08/27/16 07:27 08/27/16 07:27 08/27/16 07:27 - Medications Medications: Current Medications Diltiazem HCl (Cardizem) 30 mg PO TID [facility] Last Admin: 08/26/16 18:12 Dose: Not Given Enoxaparin Sodium (Lovenox) 70 mg SC Q12H [facility] Last Admin: 08/26/16 19:42 Dose: 70 mg Famotidine (Pepcid) 20 mg PO BID [facility] [place] Last Admin: 08/26/16 17:31 Dose: 20 mg Furosemide (Lasix) 20 mg IVP Q12 [facility] [place] Last Admin: 08/26/16 21:06 Dose: 20 mg Levothyroxine Sodium (Synthroid) 50 mcg PO DAILY@30 [facility] Lisinopril (Zestril) 5 mg PO DAILY [facility] Last Admin: 08/26/16 09:22 Dose: 5 mg Ondansetron HCl (Zofran Inj) 4 mg IVP Q6 PRN PRN Reason: Nausea/Vomiting Potassium Chloride (K-Dur 20 Meq Er Tab) 40 meq PO DAILY [facility] [place] Last Admin: 08/26/16 09:22 Dose: 40 meq - Labs Labs: 08/27/16 06:30 08/27/16 06:48 PT 15.1 SECONDS (9.7-12.2) H 08/25/16 06:06 INR 1.3 08/25/16 06:06 APTT 43 SECONDS (21-34) H D 08/25/16 06:06 Assessment and Plan (1) Atrial fibrillation Status: Acute
[2016-08-27 08:41] LABS: CHLORIDE 97 mmol/L (98-107); POTASSIUM 4.4 mmol/L (3.6-5.2); SODIUM 139 mmol/L (132-148)
--- NOTE | 2016-08-27 09:17 | CP.PCM.PN ---
<Mary Wells - Last Filed: 08/27/16 16:16> Subjective - Date & Time of Evaluation Date of Evaluation: 08/27/16 Time of Evaluation: 07:18 - Subjective Subjective: PGY-1 Medicine Note- Dr. Whyte's service Pt seen and examined in no acute distress. Family friend present bedside. Patient states that she was able to sleep through the night. Patient denies chest pain, dyspnea, palpitations, nausea, vomiting, diarrhea or constipation at this time. Objective - Vital Signs/Intake and Output Vital Signs (last 24 hours): Temp Pulse Resp BP Pulse Ox 98.1 F 86 18 134/85 97 08/27/16 07:27 08/27/16 07:27 08/27/16 07:27 08/27/16 07:27 08/27/16 07:27 - Medications Medications: Current Medications Diltiazem HCl (Cardizem) 30 mg PO TID [facility] Last Admin: 08/26/16 18:12 Dose: Not Given Enoxaparin Sodium (Lovenox) 70 mg SC Q12H [facility] Last Admin: 08/26/16 19:42 Dose: 70 mg Famotidine (Pepcid) 20 mg PO BID [facility] Last Admin: 08/26/16 17:31 Dose: 20 mg Furosemide (Lasix) 20 mg IVP Q12 [facility] Last Admin: 08/26/16 21:06 Dose: 20 mg Levothyroxine Sodium (Synthroid) 50 mcg PO DAILY@0630 [facility] Lisinopril (Zestril) 5 mg PO DAILY [facility] Last Admin: 08/26/16 09:22 Dose: 5 mg Ondansetron HCl (Zofran Inj) 4 mg IVP Q6 PRN PRN Reason: Nausea/Vomiting Potassium Chloride (K-Dur 20 Meq Er Tab) 40 meq PO DAILY [facility] Last Admin: 08/26/16 09:22 Dose: 40 meq - Labs Labs: 08/27/16 06:30 08/27/16 06:48 PT 15.1 SECONDS (9.7-12.2) H 08/25/16 06:06 INR 1.3 08/25/16 06:06 APTT 43 SECONDS (21-34) H D 08/25/16 06:06 - Constitutional Appears: No Acute Distress - Head Exam Head Exam: ATRAUMATIC, NORMAL INSPECTION, NORMOCEPHALIC - Eye Exam Eye Exam: EOMI, Normal appearance, PERRL Pupil Exam: NORMAL ACCOMODATION - ENT Exam ENT Exam: Mucous Membranes Moist - Neck Exam Neck Exam: Full ROM, Normal Inspection - Respiratory Exam Respiratory Exam: absent: Wheezes - Cardiovascular Exam Cardiovascular Exam: +S1, +S2. absent: Tachycardia - GI/Abdominal Exam GI & Abdominal Exam: Soft. absent: Tenderness - Extremities Exam Extremities Exam: Full ROM, Normal Capillary Refill, Pedal Edema (2+ pitting, erythema) - Back Exam Back Exam: Full ROM - Neurological Exam Neurological Exam: Alert, Awake, Oriented x3 - Psychiatric Exam Psychiatric exam: Normal Affect, Normal Mood - Skin Skin Exam: Dry, Intact, Normal Color, Warm Assessment and Plan - Assessment and Plan (Free Text) Assessment: Fluid over loaded CHF suspected right sided heart failure Dr. Allan consulted: Diltiazem decreased due to bradycardia yesterday. F/U reccs Previous note: CXR - Cardiomegaly; Subsegmental R mid and lower atelectasis. Poss R pleural effusion. Lasix 20mg IV q12 increased to 40 mg IV Q12 ECHO EF 40%; LV of normal size; Systolic function moderately impaired, flattened septum, mitral regurg ( mild- mod), moderate to severe tricuspid regurg Trop neg x3 Head of bed elevation >30degrees Lisinopril 5mg Daily Strict I&O Patient will likely require thoracentesis. Diltiazem to be held prior to procedure F/U Pulm ( Dr. Dill ) recommendations New Onset A.Fib 08/25: Continue to monitor on tele, Lovenox and Cardizem EKG - Atrial Fibrillation. Rate controlled on cardizem 30 mg PO TID. Monitor HR as patient tends to become bradycardic at times. Currently stable. F/U Cardio reccs Lovenox 70mg SC q12 Abd pain No pain on initial examination this morning. Reexamined 16:11pm with no discomfort noted. 08/25: ABD US is negative for any acute process, this again could be fluid overload from heart failure. Dependent pitting edema Abd US- liver exhibits slightly nodular contour and heterogeneous echo texture with small amount of ascites. Prob cholelithiasis with wall thickening and positive sonograpic jaramillo's sign. CBD noted 6.8 mm. rule out acute cholecystitis. No leukocytosis or fevers noted. Zofran prn GGTP negative, Direct bili 0.7. mild T.Bili elevation 1.7. Consult to GI Dr. Donald. F/U Discussion with Patient's [id number] bed side. DVT On therapeutic lovenox Hypothyroidism Levothyroxine 50 mcg daily in the AM Monitor Prophylactic measure Therapeutic Lovenox No SCDs Pepcid 20mg BID <Prachi Whyte V - Last Filed: 09/01/16 23:49> Objective - Vital Signs/Intake and Output Vital Signs (last 24 hours): Temp Pulse Resp BP Pulse Ox 97.7 F 86 20 102/71 98 09/01/16 16:00 09/01/16 16:00 09/01/16 16:00 09/01/16 16:00 09/01/16 16:00 - Medications Medications: Current Medications Diltiazem HCl (Cardizem) 30 mg PO TID [facility] Last Admin: 09/01/16 17:52 Dose: 30 mg Enoxaparin Sodium (Lovenox) 60 mg SC Q12 [facility] Last Admin: 09/01/16 21:42 Dose: 60 mg Famotidine (Pepcid) 20 mg PO DAILY [facility] Last Admin: 09/01/16 09:55 Dose: 20 mg Furosemide (Lasix) 40 mg IVP DAILY [facility] Last Admin: 08/31/16 09:59 Dose: Not Given Piperacillin Sod/Tazobactam (Sod 2.25 gm/ Sodium Chloride) 100 mls @ 200 mls/ hr IVPB Q8H [facility] Last Admin: 09/01/16 21:41 Dose: 200 mls/hr Metronidazole (Flagyl) 500 mg in 100 mls @ 100 mls/hr IVPB 0600,1800 [facility] Last Admin: 09/01/16 17:51 Dose: 100 mls/hr Sodium Chloride (Sodium Chloride 0.45%) 1,000 mls @ 50 mls/hr IV .Q20H [facility] Last Admin: 09/01/16 08:00 Dose: 50 mls/hr Levothyroxine Sodium (Synthroid) 50 mcg PO DAILY@0630 [facility] Last Admin: 09/01/16 06:04 Dose: 50 mcg Lisinopril (Zestril) 5 mg PO DAILY [facility] Last Admin: 09/01/16 09:58 Dose: 5 mg Ondansetron HCl (Zofran Inj) 4 mg IVP Q6 PRN PRN Reason: Nausea/Vomiting Saccharomyces Boulardii (Florastor) 250 mg PO BID [facility] Last Admin: 09/01/16 17:52 Dose: 250 mg - Labs Labs: 09/01/16 17:10 09/01/16 17:10 PT 18.7 SECONDS (9.7-12.2) H D 09/01/16 07:18 INR 1.6 09/01/16 07:18 APTT 39 SECONDS (21-34) H 08/30/16 07:12 Attending/Attestation - Attestation I have personally seen and examined this patient.: Yes I have fully participated in the care of the patient.: Yes I have reviewed all pertinent clinical information, including history, physical exam and plan: Yes Notes (Text): This is late computer entry for 08/27/16. Patient seen, examined and case discussed with day-time resident. Patient came in fluid overload, noticeably in the lower extremities, in acute systolic heart failure and acute DVT+. Will increase Lasix 40mg IV Q 12hours and Cardizem was adjusted to 30mg PO tid due to bradycardia. Will monitor weights and in and outs. Pulmonary consult given middle to large pleural effusion noted on CT Chest; patient may need thoracentesis? GI consult given on Ab US: acute cholecystitis Will need to aggressive diuresis Assessment/Plan 1) Acute Systolic Congestive Heart Failure * Record in and outs * measure daily weights * Patient is on therapuetic Lovenox-->bridge to Coumadin * Cardiology (Dr. Allan) on board-->help appreciated * Lasix 40mg IV Q 12hours * ECHO (08/26/16) EF 40%; LV of normal size; Systolic function moderately impaired, flattened septum, mitral regurg ( mild- mod), moderate to severe tricuspid regurg * ROMIX3: negative * Lisinopril 5mg PO daily * Cardizem 30mg PO TID * Monitor on telemetry; patient * Consult Pulmonary-->patient may need thoracentesis 2) New Onset Atrial Fibrillation * HASBLED: 1 * CHADS: 3 * on theraputic Lovenox * Cardizem 30mg PO TID for rate control 3) Abdominal Pain * Abd US (08/24/16)- liver exhibits slightly nodular contour and heterogeneous echo texture with small amount of ascites. Prob cholelithiasis with wall thickening and positive sonograpic jaramillo's sign. CBD noted 6.8 mm. rule out acute cholecystitis. No leukocytosis or fevers noted. * GI (Dr. Donald/Dr. Vail) consulted-->help appreciated 4) DVT (right LLE) * First time * therapuetic Lovenox * CT angio (): no central, lobar, proximal segmental pulmonary arterial filling defects noted. Moderate to large right sided and small-left sided pleural effusion with associated compressive atelectasis and/or pneumonia. mosaic attenutation throughout both lungs suggestive of small airway disease with patchy airspace opacities. enlarged heart with small pericardial effsions, abdominal ascites, general anasarca. * 08/26/16 Doppler: Right posterior tibial and bother of the peroneal veins were non compressible with echolucent thrombus and around mid calf area. There was evidence of infrapopliteral deep vein thrombosis of the right lower extremity. No evidence of deep/superficial thrombosis of the left lower extremity 5) Hypothyroidism * Levothyroxine 50 mcg daily in the AM * Monitor 6) Prophylactic measure * No SCDs * Pepcid 20mg BID for GI ppx * on therapeutic Lovenox
[2016-08-27] MEDS: Enoxaparin 80 mg Syringe SC SCH (09:31)
[2016-08-27] MEDS: Potassium Chloride 20 mEq ER Tab PO SCH (09:32)
--- NOTE | 2016-08-27 18:00 | CP.PCM.CON ---
History of Present Illness - History of Present Illness History of Present Illness: Asked today to see pt for GI Service consult for GB stones. Pt is seen and examined with family present and translating. Pt was admitted a few days ago with increasing SOB. Came to [facility] 1 month ago for treatment. Pt was found to have DVT, CHF and afib. There was some report of abdominal pain- but poorly described and poorly located. ABdomen sono shows GB stones and GB thickening. CBD=6 mm. Review of Systems - Constitutional Constitutional: absent: Fever, Headache - Cardiovascular Cardiovascular: absent: Chest Pain, Syncope - Respiratory Respiratory: absent: Hemoptysis, Wheezing - Gastrointestinal Gastrointestinal: Abdominal Pain. absent: Coffee Ground Emesis, Constipation, Diarrhea, Hematemesis, Hematochezia, Loose Stools, Melena, Nausea, Vomiting - Genitourinary Genitourinary: absent: Dysuria, Hematuria - Musculoskeletal Musculoskeletal: absent: Myalgias, Neck Pain - Integumentary Integumentary: absent: Jaundice - Neurological Neurological: absent: Convulsions Past Patient History - Past Medical History & Family History Past Medical History?: No - Past Social History Smoking Status: Never Smoked - CARDIAC Hx Hypertension: Yes - MUSCULOSKELETAL/RHEUMATOLOGICAL Hx Falls: Yes - PSYCHIATRIC Hx Substance Use: No - SURGICAL HISTORY Hx Orthopedic Surgery: Yes (RT hip) - ANESTHESIA Hx Anesthesia: Yes Hx Anesthesia Reactions: No Meds Allergies/Adverse Reactions: Allergies Allergy/AdvReac Type Severity Reaction Status Date / Time No Known Allergies Allergy Unverified 08/24/16 11:33 - Medications Medications: Current Medications Diltiazem HCl (Cardizem) 30 mg PO TID [facility] Last Admin: 08/27/16 13:27 Dose: 30 mg Enoxaparin Sodium (Lovenox) 70 mg SC Q12H [facility] Last Admin: 08/27/16 09:31 Dose: 70 mg Famotidine (Pepcid) 20 mg PO BID [facility] Last Admin: 08/27/16 09:33 Dose: 20 mg Furosemide (Lasix) 40 mg IVP Q12 [facility] Levothyroxine Sodium (Synthroid) 50 mcg PO DAILY@0630 [facility] Lisinopril (Zestril) 5 mg PO DAILY [facility] Last Admin: 08/27/16 09:32 Dose: 5 mg Ondansetron HCl (Zofran Inj) 4 mg IVP Q6 PRN PRN Reason: Nausea/Vomiting Potassium Chloride (K-Dur 20 Meq Er Tab) 40 meq PO DAILY [facility] Last Admin: 08/27/16 09:32 Dose: 40 meq Physical Exam - Constitutional Appears: Non-toxic - Neck Exam Neck exam: Negative for: Tenderness - Respiratory Exam Respiratory Exam: Decreased Breath Sounds, Rales - Cardiovascular Exam Cardiovascular Exam: Irregular Rhythm - GI/Abdominal Exam GI & Abdominal Exam: Normal Bowel Sounds, Soft. absent: Guarding, Mass, Rebound , Tenderness - Extremities Exam Extremities exam: Positive for: pedal edema - Neurological Exam Neurological exam: Alert, Oriented x3 - Skin Additional comments: eryhema LEs Results - Vital Signs Recent Vital Signs: Last Vital Signs Temp 98.1 F 08/27/16 07:27 Pulse 80 08/27/16 16:00 Resp 18 08/27/16 07:27 BP 162/72 H 08/27/16 09:31 Pulse Ox 97 08/27/16 07:27 - Labs Result Diagrams: 08/27/16 06:30 08/27/16 06:48 Labs: Laboratory Results - last 24 hr 08/26/16 08/27/16 08/27/16 21:32 06:30 06:48 WBC 8.9 D RBC 4.02 Hgb 11.6 Hct 36.2 MCV 89.9 MCH 28.8 MCHC 32.0 L RDW 16.7 H Plt Count 238 MPV 8.4 Neut % (Auto) 74.2 Lymph % (Auto) 14.9 L [place] % (Auto) 9.6 Eos % (Auto) 1.1 Baso % (Auto) 0.2 Neut # 6.6 Lymph # 1.3 [place] # 0.9 H Eos # 0.1 Baso # 0.0 Sodium 139 Potassium 4.4 Chloride 97 L Carbon Dioxide 29 Anion Gap 17 BUN 12 Creatinine 0.8 Est GFR ( Amer) > 60 Est GFR (Non-Af Amer) > 60 POC Glucose (mg/dL) 111 H Random Glucose 92 Calcium 7.7 L Phosphorus 4.2 Magnesium 1.7 Total Bilirubin 1.7 H Direct Bilirubin 0.7 H GGT 20 AST 20 ALT 21 Alkaline Phosphatase 84 Total Protein 7.4 Albumin 3.4 L Globulin 4.0 H Albumin/Globulin Ratio 0.8 L Assessment & Plan (1) Abdominal pain Assessment and Plan: Poorly described. No pain now Status: Acute (2) Cholelithiases Assessment and Plan: With thick GB wall. I doubt cholecystitis. Thick GB wall is likely due to fluid overload. Consider HIDA. Other LFTs are normal Status: Acute (3) Hypothyroid Status: Acute (4) DVT (deep venous thrombosis) Assessment and Plan: LE edema Status: Acute (5) Hyperbilirubinemia Assessment and Plan: Mild. consider passive hepatic. Other LFTs are normal. Status: Acute (6) Pleural effusion Status: Acute (7) Acute CHF Status: Acute (8) Atrial fibrillation Status: Acute (9) New onset a-fib Status: Acute
--- NOTE | 2016-08-27 18:04 | CP.PCM.CON ---
History of Present Illness - History of Present Illness History of Present Illness: dyspnea for the last few weeks with pedal edema and DVT ECHO with bi ventricular failure CT chest with bilat Pl. Effusions R>L currently pt lying flat in bed without orthopnea, pt via family states she is asymptomatic Review of Systems - Review of Systems All systems: reviewed and no additional remarkable complaints except Past Patient History - Past Medical History & Family History Past Medical History?: No - Past Social History Smoking Status: Never Smoked - CARDIAC Hx Hypertension: Yes - MUSCULOSKELETAL/RHEUMATOLOGICAL Hx Falls: Yes - PSYCHIATRIC Hx Substance Use: No - SURGICAL HISTORY Hx Orthopedic Surgery: Yes (RT hip) - ANESTHESIA Hx Anesthesia: Yes Hx Anesthesia Reactions: No Meds Allergies/Adverse Reactions: Allergies Allergy/AdvReac Type Severity Reaction Status Date / Time No Known Allergies Allergy Unverified 08/24/16 11:33 - Medications Medications: Current Medications Diltiazem HCl (Cardizem) 30 mg PO TID [facility] Last Admin: 08/27/16 13:27 Dose: 30 mg Enoxaparin Sodium (Lovenox) 70 mg SC Q12H [facility] Last Admin: 08/27/16 09:31 Dose: 70 mg Famotidine (Pepcid) 20 mg PO BID [facility] Last Admin: 08/27/16 09:33 Dose: 20 mg Furosemide (Lasix) 40 mg IVP Q12 [facility] Levothyroxine Sodium (Synthroid) 50 mcg PO DAILY@0630 [facility] Lisinopril (Zestril) 5 mg PO DAILY [facility] Last Admin: 08/27/16 09:32 Dose: 5 mg Ondansetron HCl (Zofran Inj) 4 mg IVP Q6 PRN PRN Reason: Nausea/Vomiting Potassium Chloride (K-Dur 20 Meq Er Tab) 40 meq PO DAILY [facility] Last Admin: 08/27/16 09:32 Dose: 40 meq Physical Exam - Constitutional Appears: No Acute Distress - Head Exam Head Exam: ATRAUMATIC, NORMOCEPHALIC - Eye Exam Eye Exam: Normal appearance - ENT Exam ENT Exam: Mucous Membranes Moist - Respiratory Exam Respiratory Exam: Decreased Breath Sounds - Cardiovascular Exam Cardiovascular Exam: +S1, +S2 - GI/Abdominal Exam GI & Abdominal Exam: Normal Bowel Sounds - Rectal Exam Rectal Exam: Deferred - Neurological Exam Neurological exam: Alert, Oriented x3 - Psychiatric Exam Psychiatric exam: Normal Affect, Normal Mood - Skin Skin Exam: Intact Results - Vital Signs Recent Vital Signs: Last Vital Signs Temp 98.9 F 08/27/16 17:57 Pulse 81 08/27/16 17:57 Resp 20 08/27/16 17:57 BP 116/74 08/27/16 17:57 Pulse Ox 95 08/27/16 17:57 - Labs Result Diagrams: 08/27/16 06:30 08/27/16 06:48 Labs: Laboratory Results - last 24 hr 08/26/16 08/27/16 08/27/16 21:32 06:30 06:48 WBC 8.9 D RBC 4.02 Hgb 11.6 Hct 36.2 MCV 89.9 MCH 28.8 MCHC 32.0 L RDW 16.7 H Plt Count 238 MPV 8.4 Neut % (Auto) 74.2 Lymph % (Auto) 14.9 L [place] % (Auto) 9.6 Eos % (Auto) 1.1 Baso % (Auto) 0.2 Neut # 6.6 Lymph # 1.3 [place] # 0.9 H Eos # 0.1 Baso # 0.0 Sodium 139 Potassium 4.4 Chloride 97 L Carbon Dioxide 29 Anion Gap 17 BUN 12 Creatinine 0.8 Est GFR ( Amer) > 60 Est GFR (Non-Af Amer) > 60 POC Glucose (mg/dL) 111 H Random Glucose 92 Calcium 7.7 L Phosphorus 4.2 Magnesium 1.7 Total Bilirubin 1.7 H Direct Bilirubin 0.7 H GGT 20 AST 20 ALT 21 Alkaline Phosphatase 84 Total Protein 7.4 Albumin 3.4 L Globulin 4.0 H Albumin/Globulin Ratio 0.8 L Assessment & Plan - Assessment and Plan (Free Text) Plan: bi-ventricular failure with bilat pl. effusions and dvt v-q scan to r/o distal chronic emboli continue diuresis with treatment of heart failure, as pt has made a good clinical response to meds, she may not need thoracentesis will repeat cxr, probnp
[2016-08-28] MEDS: Levothyroxine 50 MCG TAB PO SCH (05:44)
--- NOTE | 2016-08-28 07:10 | CP.PCM.PN ---
<Mary Wells - Last Filed: 08/28/16 16:01> Subjective - Date & Time of Evaluation Date of Evaluation: 08/28/16 Time of Evaluation: 07:32 - Subjective Subjective: PGY 1 Medicine Note- Dr. Whyte's service Pt seen and examined in no acute distress. Patient able to sit up in bed today without discomfort. Patient's granddaughter and daughter in law present bedside with concerns and questions addressed. Patient denies subjective fevers or chills, nausea, vomiting, abdominal pain, constipation, diarrhea, dyspnea, chest pain or palpitations at this time. Objective - Vital Signs/Intake and Output Vital Signs (last 24 hours): Temp Pulse Resp BP Pulse Ox 97.9 F 85 20 123/69 96 08/27/16 23:35 08/28/16 00:05 08/27/16 23:35 08/27/16 23:35 08/27/16 23:35 Intake and Output: 08/28/16 08/28/16 06:59 18:59 Intake Total 150 Balance 150 - Medications Medications: Current Medications Aspirin (Aspirin Chewable) 81 mg PO DAILY [facility] Diltiazem HCl (Cardizem) 30 mg PO TID [facility] Last Admin: 08/27/16 18:14 Dose: 30 mg Enoxaparin Sodium (Lovenox) 70 mg SC Q12H [facility] Last Admin: 08/27/16 09:31 Dose: 70 mg Famotidine (Pepcid) 20 mg PO BID [facility] Last Admin: 08/27/16 18:14 Dose: 20 mg Furosemide (Lasix) 40 mg IVP Q12 [facility] Last Admin: 08/27/16 22:17 Dose: 40 mg Levothyroxine Sodium (Synthroid) 50 mcg PO DAILY@0630 [facility] Last Admin: 08/28/16 05:44 Dose: 50 mcg Lisinopril (Zestril) 5 mg PO DAILY [facility] Last Admin: 08/27/16 09:32 Dose: 5 mg Ondansetron HCl (Zofran Inj) 4 mg IVP Q6 PRN PRN Reason: Nausea/Vomiting Potassium Chloride (K-Dur 20 Meq Er Tab) 40 meq PO DAILY [facility] Last Admin: 08/27/16 09:32 Dose: 40 meq - Labs Labs: 08/27/16 06:30 08/27/16 06:48 PT 15.1 SECONDS (9.7-12.2) H 08/25/16 06:06 INR 1.3 08/25/16 06:06 APTT 43 SECONDS (21-34) H D 08/25/16 06:06 - Constitutional Appears: Non-toxic, No Acute Distress - Head Exam Head Exam: ATRAUMATIC, NORMAL INSPECTION, NORMOCEPHALIC - Eye Exam Eye Exam: EOMI, Normal appearance, PERRL Pupil Exam: NORMAL ACCOMODATION, PERRL - ENT Exam ENT Exam: Mucous Membranes Moist, Normal Exam - Neck Exam Neck Exam: Full ROM, Normal Inspection - Respiratory Exam Respiratory Exam: NORMAL BREATHING PATTERN. absent: Wheezes - Cardiovascular Exam Cardiovascular Exam: REGULAR RHYTHM, +S1, +S2 - GI/Abdominal Exam GI & Abdominal Exam: Distended, Soft, Normal Bowel Sounds. absent: Firm, Guarding, Rigid, Tenderness, Mass - Extremities Exam Extremities Exam: Full ROM, Normal Capillary Refill, Normal Inspection, Pedal Edema (trace today) - Back Exam Back Exam: Full ROM, NORMAL INSPECTION - Neurological Exam Neurological Exam: Alert, Awake, CN II-XII Intact, Oriented x3 - Psychiatric Exam Psychiatric exam: Normal Affect, Normal Mood - Skin Skin Exam: Dry, Erythema, Intact, Warm Assessment and Plan - Assessment and Plan (Free Text) Assessment: Fluid over loaded CHF suspected right sided heart failure HR Stable CXR - Cardiomegaly; Subsegmental R mid and lower atelectasis. Poss R pleural effusion. Lasix 40 mg IV Q12 ECHO EF 40%; LV of normal size; Systolic function moderately impaired, flattened septum, mitral regurg ( mild- mod), moderate to severe tricuspid regurg Trop neg x3 Head of bed elevation >30degrees Lisinopril 5mg Daily Strict I&O F/U Pulm ( Dr. Dill ) recommendations for V/Q scan to rule out distal chronic emboli. Lasix therapy to be continued and monitored. Patient may not need thoracentesis if diuresed. Daily weights- Nursing communication regarding use of consistent scale if bed weights are off. 08/28 Chest XRAY with noted improvement. New Onset A.Fib 08/25: Continue to monitor on tele, Lovenox and Cardizem EKG - Atrial Fibrillation. Rate controlled on cardizem 30 mg PO TID. Monitor HR as patient tends to become bradycardic at times. Currently stable. F/U Cardio reccs Lovenox 70mg SC q12 Abd pain No pain on initial examination this morning. Reexamined 16:11pm with no discomfort noted. 08/25: ABD US is negative for any acute process, this again could be fluid overload from heart failure. Dependent pitting edema Abd US- liver exhibits slightly nodular contour and heterogeneous echo texture with small amount of ascites. Prob cholelithiasis with wall thickening and positive sonograpic jaramillo's sign. CBD noted 6.8 mm. rule out acute cholecystitis. No leukocytosis or fevers noted. Zofran prn GGTP negative, Direct bili 0.7. mild T.Bili elevation 1.7. Consult to GI team ( Dr. Donald/Genna): Do not suspect cholecystitis as abdomen is not tender. HYperbilirubinemia is mostly indirect and consistent with Gilbert's syndrome. No interventional recommendation at this time. HIDA scan suggestions made per Primary team. Discussion with Patient's granddaughter and [id number] bed side. DVT On therapeutic lovenox. Will likely need to transition to another anticoagulative agent prior to discharge that is readily accessible for patient. Hypothyroidism Levothyroxine 50 mcg daily in the AM Monitor <Prachi Whyte V - Last Filed: 09/01/16 23:43> Objective - Vital Signs/Intake and Output Vital Signs (last 24 hours): Temp Pulse Resp BP Pulse Ox 97.7 F 86 20 102/71 98 09/01/16 16:00 09/01/16 16:00 09/01/16 16:00 09/01/16 16:00 09/01/16 16:00 - Medications Medications: Current Medications Diltiazem HCl (Cardizem) 30 mg PO TID [facility] Last Admin: 09/01/16 17:52 Dose: 30 mg Enoxaparin Sodium (Lovenox) 60 mg SC Q12 [facility] Last Admin: 09/01/16 21:42 Dose: 60 mg Famotidine (Pepcid) 20 mg PO DAILY [facility] Last Admin: 09/01/16 09:55 Dose: 20 mg Furosemide (Lasix) 40 mg IVP DAILY [facility] Last Admin: 08/31/16 09:59 Dose: Not Given Piperacillin Sod/Tazobactam (Sod 2.25 gm/ Sodium Chloride) 100 mls @ 200 mls/ hr IVPB Q8H [facility] Last Admin: 09/01/16 21:41 Dose: 200 mls/hr Metronidazole (Flagyl) 500 mg in 100 mls @ 100 mls/hr IVPB 0600,1800 [facility] Last Admin: 09/01/16 17:51 Dose: 100 mls/hr Sodium Chloride (Sodium Chloride 0.45%) 1,000 mls @ 50 mls/hr IV .Q20H [facility] Last Admin: 09/01/16 08:00 Dose: 50 mls/hr Levothyroxine Sodium (Synthroid) 50 mcg PO DAILY@0630 [facility] Last Admin: 09/01/16 06:04 Dose: 50 mcg Lisinopril (Zestril) 5 mg PO DAILY [facility] Last Admin: 09/01/16 09:58 Dose: 5 mg Ondansetron HCl (Zofran Inj) 4 mg IVP Q6 PRN PRN Reason: Nausea/Vomiting Saccharomyces Boulardii (Florastor) 250 mg PO BID [facility] Last Admin: 09/01/16 17:52 Dose: 250 mg - Labs Labs: 09/01/16 17:10 09/01/16 17:10 PT 18.7 SECONDS (9.7-12.2) H D 09/01/16 07:18 INR 1.6 09/01/16 07:18 APTT 39 SECONDS (21-34) H 08/30/16 07:12 Attending/Attestation - Attestation I have personally seen and examined this patient.: Yes I have fully participated in the care of the patient.: Yes I have reviewed all pertinent clinical information, including history, physical exam and plan: Yes Notes (Text): This is late computer entry for 08/28/16. Patient seen, examined, and case discussed with day-time resident. Discussed with patient's daugher and grand-daughter in person. Ordered for HIDA scan. Patient ordered for V/Q scan per pulm, to rule out distal PE, unlikely will need thoracentesis recommend for diuresis and order for repeat chest xray per pulm Patient started on Lovenox-->Coumadin bridge to cover for DVT and Atrial fibrillation. Due to cost, patient will not be able to afford Eliquis and Xarelto (500/800 dollar medication) respectively. monitor daily weights Assessment/Plan 1) Acute Systolic Congestive Heart Failure * Record in and outs * measure daily weights * Patient is on therapuetic Lovenox-->bridge to Coumadin * Cardiology (Dr. Allan) on board-->help appreciated * Lasix 40mg IV Q 12hours * ECHO (08/26/16) EF 40%; LV of normal size; Systolic function moderately impaired, flattened septum, mitral regurg ( mild- mod), moderate to severe tricuspid regurg * ROMIX3: negative * Lisinopril 5mg PO daily * Cardizem 30mg PO TID * Monitor on telemetry; patient * Chest Xray (08/28/16): mild central pulmonary vascular congestive changes with bibasilar alveolar-type infiltrates-atlectasis and small efusions right greater than left 2) New Onset Atrial Fibrillation * HASBLED: 1 * CHADS: 3 * Bridge to Lovenox to Coumadin * Cardizem 30mg PO TID for rate control 3) Abdominal Pain * Abd US (08/24/16)- liver exhibits slightly nodular contour and heterogeneous echo texture with small amount of ascites. Prob cholelithiasis with wall thickening and positive sonograpic jaramillo's sign. CBD noted 6.8 mm. rule out acute cholecystitis. No leukocytosis or fevers noted. * Ordered for HIDA scan * GI (Dr. Donald/Dr. Vail) on board 4) DVT (right LLE) * First time * Lovenox bridge to Coumadin. * V/Q scan (08/28): low probability * CT angio (): no central, lobar, proximal segmental pulmonary arterial filling defects noted. Moderate to large right sided and small-left sided pleural effusion with associated compressive atelectasis and/or pneumonia. mosaic attenutation throughout both lungs suggestive of small airway disease with patchy airspace opacities. enlarged heart with small pericardial effsions, abdominal ascites, general anasarca. * 08/26/16 Doppler: Right posterior tibial and bother of the peroneal veins were non compressible with echolucent thrombus and around mid calf area. There was evidence of infrapopliteral deep vein thrombosis of the right lower extremity. No evidence of deep/superficial thrombosis of the left lower extremity 5) Hypothyroidism * Levothyroxine 50 mcg daily in the AM * Monitor 6) Prophylactic measure * No SCDs * Pepcid 20mg BID for GI ppx * on therapeutic Lovenox to bridge to coumadin
[2016-08-28 07:35] LABS: BASO % 0.2 % (0.0-2.0); EOS # 0.1 K/uL (0.0-0.7); EOS % 1.4 % (0.0-4.0); HEMATOCRIT 34.9 % (34.0-47.0); LYMPH # 1.2 K/uL (1.0-4.3); LYMPH % 13.2 % (20.0-40.0); MEAN CELL VOLUME 89.5 fL (81.0-99.0); MEAN CORPUSCULAR HEMOGLOBIN 28.5 pg (27.0-31.0); MEAN CORPUSCULAR HGB CONC 31.8 g/dL (33.0-37.0); MEAN PLATELET VOLUME 8.3 fL (7.2-11.7); MONO % 10.6 % (0.0-10.0); NRBC % 0.1 % (0.0-2.0); RED CELL DISTRIBUTION WIDTH 16.7 % (11.5-14.5); WHITE BLOOD COUNT 9.2 K/uL (4.8-10.8)
[2016-08-28 07:45] LABS: CHLORIDE 91 mmol/L (98-107); POTASSIUM 4.2 mmol/L (3.6-5.2); SODIUM 135 mmol/L (132-148)
[2016-08-28 07:47] LABS: BILIRUBIN,TOTAL 2.4 mg/dL (0.2-1.3); CARBON DIOXIDE 31 mmol/L (22-30); GFR AFRICAN-AMERICAN > 60
[2016-08-28 07:48] LABS: ALB/GLOB RATIO 0.9 (1.0-2.1); ALKALINE PHOSPHATASE 87 U/L (38-126); ALT/SGPT 17 U/L (9-52); AST/SGOT 21 U/L (14-36); BLOOD UREA NITROGEN 12 mg/dL (7-17); CALCIUM 8.1 mg/dl (8.6-10.4); GLUCOSE,RANDOM 82 mg/dL (65-105); MAGNESIUM 1.8 mg/dL (1.6-2.3); PHOSPHOROUS 3.9 mg/dL (2.5-4.5); TOTAL PROTEIN 7.1 g/dL (6.3-8.3)
--- NOTE | 2016-08-28 08:17 | RAD ---
HISTORY: pleural effusion COMPARISON: 08/25/2016 TECHNIQUE: Chest PA and lateral FINDINGS: LUNGS: Moderate to severe venous congestion with confluent airspace opacities in the mid to lower lung zones with associated moderate bilateral pleural effusions. Right midlung atelectasis. Biapical pleural thickening with upper lobe granulomatous changes. PLEURA: As above. CARDIOVASCULAR: Cardiomegaly. Calcification at the aortic knob. Bilateral paratracheal opacities may represent prominent vasculature. Additional rounded radiopaque densities seen in right paratracheal region of uncertain clinical etiology. Clinical correlation. OSSEOUS STRUCTURES: No significant abnormalities. VISUALIZED UPPER ABDOMEN: Normal. OTHER FINDINGS: None. IMPRESSION: Moderate to severe venous congestion with confluent airspace opacities in the mid to lower lung zones with associated moderate bilateral pleural effusions. Right midlung atelectasis. Biapical pleural thickening with upper lobe granulomatous changes.
[2016-08-28] MEDS: Enoxaparin 80 mg Syringe SC SCH ×2 (08:35→22:15)
--- NOTE | 2016-08-28 10:21 | CP.PCM.PN ---
Subjective - Date & Time of Evaluation Date of Evaluation: 08/28/16 Time of Evaluation: 10:18 - Subjective Subjective: Denies abdominal pain. Tolerating diet. Objective - Vital Signs/Intake and Output Vital Signs (last 24 hours): Temp Pulse Resp BP Pulse Ox 97.8 F 87 20 160/80 H 96 08/28/16 09:22 08/28/16 09:22 08/28/16 09:22 08/28/16 09:22 08/28/16 09:22 Intake and Output: 08/28/16 08/28/16 06:59 18:59 Intake Total 150 Balance 150 - Medications Medications: Current Medications Aspirin (Aspirin Chewable) 81 mg PO DAILY [facility] Diltiazem HCl (Cardizem) 30 mg PO TID [facility] Last Admin: 08/27/16 18:14 Dose: 30 mg Enoxaparin Sodium (Lovenox) 70 mg SC Q12H [facility] Last Admin: 08/27/16 09:31 Dose: 70 mg Famotidine (Pepcid) 20 mg PO BID [facility] Last Admin: 08/27/16 18:14 Dose: 20 mg Furosemide (Lasix) 40 mg IVP Q12 [facility] Last Admin: 08/27/16 22:17 Dose: 40 mg Levothyroxine Sodium (Synthroid) 50 mcg PO DAILY@0630 [facility] Last Admin: 08/28/16 05:44 Dose: 50 mcg Lisinopril (Zestril) 5 mg PO DAILY [facility] Last Admin: 08/27/16 09:32 Dose: 5 mg Ondansetron HCl (Zofran Inj) 4 mg IVP Q6 PRN PRN Reason: Nausea/Vomiting Potassium Chloride (K-Dur 20 Meq Er Tab) 40 meq PO DAILY [facility] Last Admin: 08/27/16 09:32 Dose: 40 meq - Labs Labs: 08/28/16 07:16 08/28/16 07:16 PT 15.1 SECONDS (9.7-12.2) H 08/25/16 06:06 INR 1.3 08/25/16 06:06 APTT 43 SECONDS (21-34) H D 08/25/16 06:06 - Constitutional Appears: Well, No Acute Distress - Eye Exam Eye Exam: absent: Scleral icterus - Cardiovascular Exam Cardiovascular Exam: REGULAR RHYTHM - GI/Abdominal Exam GI & Abdominal Exam: Soft. absent: Tenderness, Organomegaly Assessment and Plan (1) Abdominal pain Assessment & Plan: Resolved Observe Status: Acute (2) Hyperbilirubinemia Assessment & Plan: Mostly indirect. Consistent with Gilbert's Syndrome. No intervention needed. LFTs otherwise normal. Do not suspect cholecystitis. Abdomen is not tender. Will sign off. Recall us if needed. Status: Acute
[2016-08-28] MEDS: Potassium Chloride 20 mEq ER Tab PO SCH (10:39)
--- NOTE | 2016-08-28 11:05 | NM ---
COMPARISON: 08/27/2016. Single-view chest. TECHNIQUE: 10.1 mCi technetium 99-m Xe-133 Gas. 3.9 mCI technetium 99-m MAA administered intravenously. FINDINGS: VENTILATION COMPONENT: Normal. PERFUSION COMPONENT: Heterogeneous distribution of radionuclide particularly in the inner lobar fissure region on the left. IMPRESSION: Low probability ventilation perfusion scan for pulmonary embolism.
--- NOTE | 2016-08-28 11:23 | RAD ---
HISTORY: Fluid overload monitor pl effusion progression. COMPARISON: Comparison chest 08/27/2016 FINDINGS: LUNGS: Mild central pulmonary vascular congestive changes with bibasilar alveolar-type infiltrates -atelectasis and small effusions right greater than left PLEURA: As above CARDIOVASCULAR: Cardiomegaly OSSEOUS STRUCTURES: No significant abnormalities. VISUALIZED UPPER ABDOMEN: Normal. OTHER FINDINGS: None. IMPRESSION: Mild central pulmonary vascular congestive changes with bibasilar alveolar-type infiltrates -atelectasis and small effusions right greater than left
[2016-08-28 14:27] LABS: INR 1.4
[2016-08-29] MEDS: Levothyroxine 50 MCG TAB PO SCH (05:42)
[2016-08-29 07:25] LABS: BASO % 0.6 % (0.0-2.0); EOS # 0.1 K/uL (0.0-0.7); EOS % 2.6 % (0.0-4.0); HEMATOCRIT 36.5 % (34.0-47.0); LYMPH # 1.4 K/uL (1.0-4.3); LYMPH % 24.4 % (20.0-40.0); MEAN CELL VOLUME 90.2 fL (81.0-99.0); MEAN CORPUSCULAR HEMOGLOBIN 28.9 pg (27.0-31.0); MEAN PLATELET VOLUME 8.1 fL (7.2-11.7); MONO # 0.8 K/uL (0.0-0.8); MONO % 14.1 % (0.0-10.0); NRBC % 0.3 % (0.0-2.0); RED CELL DISTRIBUTION WIDTH 16.4 % (11.5-14.5); WHITE BLOOD COUNT 5.6 K/uL (4.8-10.8)
[2016-08-29 07:46] LABS: CHLORIDE 91 mmol/L (98-107); POTASSIUM 4.6 mmol/L (3.6-5.2); SODIUM 134 mmol/L (132-148)
[2016-08-29 07:48] LABS: AST/SGOT 26 U/L (14-36); CARBON DIOXIDE 32 mmol/L (22-30); GFR AFRICAN-AMERICAN > 60
[2016-08-29 07:49] LABS: ALB/GLOB RATIO 0.9 (1.0-2.1); ALKALINE PHOSPHATASE 88 U/L (38-126); ALT/SGPT 18 U/L (9-52); BLOOD UREA NITROGEN 12 mg/dL (7-17); CALCIUM 8.3 mg/dl (8.6-10.4); GLUCOSE,RANDOM 85 mg/dL (65-105); PHOSPHOROUS 4.5 mg/dL (2.5-4.5); TOTAL PROTEIN 7.2 g/dL (6.3-8.3)
[2016-08-29] MEDS: Enoxaparin 80 mg Syringe SC SCH (08:29)
[2016-08-29] MEDS: Potassium Chloride 20 mEq ER Tab PO SCH (08:59)
--- NOTE | 2016-08-29 13:22 | CP.PCM.CON ---
History of Present Illness - History of Present Illness History of Present Illness: Patient is a 76 year old Gujarati speaking female with unknown past medical history who presented to the hospital on with complaint of shortness of breath and lower extremity swelling. Per report, patient was also experiencing abdominal pain at that time, although patient currently states she never had abdominal pain. Since hospitalization, patient has been diagnosed with CHF, atrial fibrillation, DVT in right lower extremity. On laboratory exam , patient was noted to have elevated total bilirubin. Abdominal ultrasound was performed and per report, patient had positive sonographic Clark's sign. GI, Drs. Donald and Genna were consulted on this patient for these findings. 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 Per GI, the thickened gallbladder wall seen on abdominal ultrasound likely due to fluid overload present on admission. Patient is currently denying pain anywhere, denies fevers, chills, nausea, vomiting, diarrhea, constipation, dysuria. Patient tolerating diet well. Surgery was consulted to rule out cholecystitis. PMHx: unknown PSHx: right hip replacement Family Hx: Denies Social Hx: recently moved to [facility] 1 month ago. Lives with son. Denies TOB. Denies ETOH. Denies illicit drugs. Allergies: NKDA Meds: one med from [facility], unknown name. Does not take it regularly. Last taken 4 weeks ago. Review of Systems - Constitutional Constitutional: absent: Chills, Fever - EENT Nose/Mouth/Throat: absent: Sore Throat - Cardiovascular Cardiovascular: absent: Chest Pain, Dyspnea - Respiratory Respiratory: absent: Dyspnea - Gastrointestinal Gastrointestinal: absent: Abdominal Pain, Constipation, Diarrhea, Dyspepsia, Excessive Flatus, Hematochezia, Nausea, Vomiting - Genitourinary Genitourinary: absent: Dysuria - Musculoskeletal Musculoskeletal: absent: Back Pain - Integumentary Integumentary: Erythema - Neurological Neurological: absent: Focal Weakness Past Patient History - Past Medical History & Family History Past Medical History?: No - Past Social History Smoking Status: Never Smoked - CARDIAC Hx Hypertension: Yes - MUSCULOSKELETAL/RHEUMATOLOGICAL Hx Falls: Yes - PSYCHIATRIC Hx Substance Use: No - SURGICAL HISTORY Hx Orthopedic Surgery: Yes (RT hip) - ANESTHESIA Hx Anesthesia: Yes Hx Anesthesia Reactions: No Meds Allergies/Adverse Reactions: Allergies Allergy/AdvReac Type Severity Reaction Status Date / Time No Known Allergies Allergy Unverified 08/24/16 11:33 - Medications Medications: Current Medications Aspirin (Aspirin Chewable) 81 mg PO DAILY [facility] Last Admin: 08/29/16 09:24 Dose: 81 mg Diltiazem HCl (Cardizem) 30 mg PO TID [facility] Last Admin: 08/29/16 09:24 Dose: 30 mg Enoxaparin Sodium (Lovenox) 70 mg SC Q12H [facility] Last Admin: 08/29/16 08:29 Dose: 70 mg Famotidine (Pepcid) 20 mg PO BID [facility] Last Admin: 08/29/16 09:00 Dose: 20 mg Furosemide (Lasix) 40 mg IVP Q12 [facility] Last Admin: 08/29/16 08:59 Dose: 40 mg Levothyroxine Sodium (Synthroid) 50 mcg PO DAILY@0630 [facility] Last Admin: 08/29/16 05:42 Dose: 50 mcg Lisinopril (Zestril) 5 mg PO DAILY [facility] Last Admin: 08/29/16 09:00 Dose: 5 mg Ondansetron HCl (Zofran Inj) 4 mg IVP Q6 PRN PRN Reason: Nausea/Vomiting Potassium Chloride (K-Dur 20 Meq Er Tab) 40 meq PO DAILY [facility] Last Admin: 08/29/16 08:59 Dose: 40 meq Physical Exam - Constitutional Appears: Well, Non-toxic, No Acute Distress - Head Exam Head Exam: ATRAUMATIC, NORMOCEPHALIC - Eye Exam Eye Exam: EOMI - ENT Exam ENT Exam: Mucous Membranes Moist - Respiratory Exam Respiratory Exam: Decreased Breath Sounds, Rales - Cardiovascular Exam Cardiovascular Exam: +S1, +S2 - GI/Abdominal Exam GI & Abdominal Exam: Normal Bowel Sounds, Soft. absent: Distended, Firm, Guarding, Rebound, Tenderness Additional comments: negative Clark's sign - Extremities Exam Extremities exam: Positive for: pedal edema. Negative for: tenderness Additional comments: bilateral lower extremities with 1+ pitting edema and mild erythema, calves soft and non-tender on palpation - Neurological Exam Neurological exam: Alert - Psychiatric Exam Psychiatric exam: Normal Affect Results - Vital Signs Recent Vital Signs: Last Vital Signs Temp 97.8 F 08/29/16 07:20 Pulse 92 H 08/29/16 07:20 Resp 18 08/29/16 07:20 BP 132/74 04/27/17 08:59 Pulse Ox 97 08/29/16 07:20 - Labs Result Diagrams: 08/29/16 06:56 08/29/16 06:56 Labs: Laboratory Results - last 24 hr 08/28/16 08/29/16 08/29/16 14:11 06:56 06:56 WBC 5.6 RBC 4.05 Hgb 11.7 Hct 36.5 MCV 90.2 MCH 28.9 MCHC 32.0 L RDW 16.4 H Plt Count 212 MPV 8.1 Neut % (Auto) 58.3 Lymph % (Auto) 24.4 Peach % (Auto) 14.1 H Eos % (Auto) 2.6 Baso % (Auto) 0.6 Neut # 3.3 Lymph # 1.4 Peach # 0.8 Eos # 0.1 Baso # 0.0 PT 16.0 H INR 1.4 Sodium 134 Potassium 4.6 Chloride 91 L Carbon Dioxide 32 H Anion Gap 16 BUN 12 Creatinine 0.9 Est GFR ( Amer) > 60 Est GFR (Non-Af Amer) > 60 Random Glucose 85 Calcium 8.3 L Phosphorus 4.5 Magnesium 2.0 Total Bilirubin 2.0 H AST 26 ALT 18 Alkaline Phosphatase 88 Total Protein 7.2 Albumin 3.4 L Globulin 3.8 Albumin/Globulin Ratio 0.9 L Assessment & Plan - Assessment and Plan (Free Text) Assessment: 76 year old female with new diagnosis of CHF, A.fib, DVT right lower extremity, positive sonographic Clark's sign on abdominal US- concern for cholecystitis - Abdominal US 08/24: gallbladder wall thickening 8.4mm with positive sonographic Clark's sign, CBD of 6.8mm which could be age-related as there is no intraductal stone identified - Patient currently asymptomatic- negative Clark's sign on examination - Will order HIDA scan - Discussed with Dr. Lazcano
[2016-08-29 16:14] LABS: INR 1.3
--- NOTE | 2016-08-29 18:06 | CP.PCM.PN ---
<Mary Wells - Last Filed: 08/29/16 20:08> Subjective - Date & Time of Evaluation Date of Evaluation: 08/29/16 Time of Evaluation: 07:16 - Subjective Subjective: PGY 1 Medicine Note- Dr. Whyte's service Pt seen and examined in no acute distress. Patient reports feeling better and is anticipation of leaving. Patient as well as patient's daughter in law asked for patient's daughter to be updated via phone. Concerns were addressed and questions were answered. Patient denied abdominal pain, fevers, chills, nausea, vomiting, diarrhea, constipation, at this time. Objective - Vital Signs/Intake and Output Vital Signs (last 24 hours): Temp Pulse Resp BP Pulse Ox 97.4 F L 69 20 103/58 L 94 L 08/29/16 15:24 08/29/16 15:24 08/29/16 15:24 08/29/16 16:28 08/29/16 15:24 Intake and Output: 08/29/16 08/29/16 06:59 18:59 Intake Total 120 Balance 120 - Medications Medications: Current Medications Aspirin (Aspirin Chewable) 81 mg PO DAILY [facility] Last Admin: 08/29/16 09:24 Dose: 81 mg Diltiazem HCl (Cardizem) 30 mg PO TID [facility] Last Admin: 08/29/16 17:49 Dose: 30 mg Famotidine (Pepcid) 20 mg PO BID [facility] Last Admin: 08/29/16 17:49 Dose: 20 mg Furosemide (Lasix) 40 mg IVP Q12 [facility] Last Admin: 08/29/16 08:59 Dose: 40 mg Levothyroxine Sodium (Synthroid) 50 mcg PO DAILY@0630 [facility] Last Admin: 08/29/16 05:42 Dose: 50 mcg Lisinopril (Zestril) 5 mg PO DAILY [facility] Last Admin: 08/29/16 09:00 Dose: 5 mg Ondansetron HCl (Zofran Inj) 4 mg IVP Q6 PRN PRN Reason: Nausea/Vomiting - Labs Labs: 08/29/16 06:56 08/29/16 06:56 PT 15.1 SECONDS (9.7-12.2) H 08/29/16 15:58 INR 1.3 08/29/16 15:58 APTT 43 SECONDS (21-34) H D 08/25/16 06:06 - Constitutional Appears: Non-toxic, No Acute Distress - Head Exam Head Exam: ATRAUMATIC, NORMAL INSPECTION, NORMOCEPHALIC - Eye Exam Eye Exam: EOMI, Normal appearance, PERRL Pupil Exam: NORMAL ACCOMODATION - ENT Exam ENT Exam: Mucous Membranes Moist, Normal Exam - Neck Exam Neck Exam: Full ROM - Respiratory Exam Respiratory Exam: NORMAL BREATHING PATTERN. absent: Wheezes - Cardiovascular Exam Cardiovascular Exam: +S1, +S2 - GI/Abdominal Exam GI & Abdominal Exam: Soft, Normal Bowel Sounds. absent: Firm, Guarding, Tenderness - Extremities Exam Extremities Exam: Full ROM, Normal Capillary Refill, Pedal Edema, Tenderness ( point tenderness). absent: Calf Tenderness, Joint Swelling Additional comments: erythema of shins - Neurological Exam Neurological Exam: Alert, Awake, CN II-XII Intact, Oriented x3 - Psychiatric Exam Psychiatric exam: Normal Affect, Normal Mood - Skin Skin Exam: Dry, Erythema, Intact, Warm Additional comments: decreased skin turgor Assessment and Plan - Assessment and Plan (Free Text) Assessment: Fluid over loaded CHF suspected right sided heart failure HR Stable CXR - Cardiomegaly; Subsegmental R mid and lower atelectasis. Poss R pleural effusion. Lasix 40 mg IV Q12 ECHO EF 40%; LV of normal size; Systolic function moderately impaired, flattened septum, mitral regurg ( mild- mod), moderate to severe tricuspid regurg Trop neg x3 Head of bed elevation >30degrees Lisinopril 5mg Daily Strict I&O F/U Pulm ( Dr. Dill ) recommendations for V/Q scan to rule out distal chronic emboli. VQ scan of low probability for PE. Lasix therapy to be continued and monitored. Patient may not need thoracentesis if diuresed appropriately. Daily weights- Nursing communication regarding use of consistent scale if bed weights are off. 08/28 Chest XRAY with noted improvement. New Onset A.Fib 08/25: Continue to monitor on tele EKG - Atrial Fibrillation. Rate controlled on cardizem 30 mg PO TID. Monitor HR as patient tends to become bradycardic at times. Currently stable. F/U Cardio reccs Coumadin 5 mg PO Abd pain No pain on initial examination this morning. 08/25: ABD US is negative for any acute process, this again could be fluid overload from heart failure. Dependent pitting edema Abd US- liver exhibits slightly nodular contour and heterogeneous echo texture with small amount of ascites. Prob cholelithiasis with wall thickening and positive sonograpic clark's sign. CBD noted 6.8 mm. rule out acute cholecystitis. No leukocytosis or fevers noted. Zofran prn GGTP negative, Direct bili 0.7. mild T.Bili elevation 1.7. Consult to GI team ( Dr. Donald/Genna): Do not suspect cholecystitis as abdomen is not tender. 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 No interventional recommendation at this time. Second opinion Surgery- Recommendations for HIDA scan. F/U DVT Lovenox bridge to Coumadin. On coumadin 5 mg PO start 08/29 INR 1.3 Monitor coags Hypothyroidism Levothyroxine 50 mcg daily in the AM Monitor Prophylactic measure Coumadin 5 mg PO No SCDs Pepcid 20mg BID <Prachi Whyte V - Last Filed: 08/30/16 10:07> Objective - Vital Signs/Intake and Output Vital Signs (last 24 hours): Temp Pulse Resp BP Pulse Ox 98.2 F 66 18 104/61 94 L 08/30/16 08:38 08/30/16 08:38 08/30/16 08:38 08/30/16 08:38 08/30/16 08:38 - Medications Medications: Current Medications Aspirin (Aspirin Chewable) 81 mg PO DAILY [facility] Last Admin: 08/29/16 09:24 Dose: 81 mg Diltiazem HCl (Cardizem) 30 mg PO TID [facility] Last Admin: 08/29/16 17:49 Dose: 30 mg Famotidine (Pepcid) 20 mg PO BID [facility] Last Admin: 08/29/16 17:49 Dose: 20 mg Levothyroxine Sodium (Synthroid) 50 mcg PO DAILY@0630 [facility] Last Admin: 08/30/16 06:45 Dose: Not Given Lisinopril (Zestril) 5 mg PO DAILY [facility] Last Admin: 08/29/16 09:00 Dose: 5 mg Ondansetron HCl (Zofran Inj) 4 mg IVP Q6 PRN PRN Reason: Nausea/Vomiting - Labs Labs: 08/30/16 07:12 08/30/16 07:12 PT 12.9 SECONDS (9.7-12.2) H 08/30/16 07:12 INR 1.2 08/30/16 07:12 APTT 39 SECONDS (21-34) H 08/30/16 07:12 Attending/Attestation - Attestation I have personally seen and examined this patient.: Yes I have fully participated in the care of the patient.: Yes I have reviewed all pertinent clinical information, including history, physical exam and plan: Yes Notes (Text): This is late computer entry for 08/29/16. Patient seen, examined, and case discussed with day-time resident. Patient denies acute complaints except for pain secondary right lower extremity DVT. General surgery consulted to evaluate acute cholecystitis noted on Abdominal US. Patient has negative Clark's sign. Ordered for HIDA scan. Patient started on Lovenox-->Coumadin bridge to cover for DVT and Atrial fibrillation. Due to cose, patient will not be able to afford Eliquis and Xarelto (500/800 dollar medication) respectively. Per review of weights recorded, and clinical exam, patient appears less edematous GI signed off. 1) Acute Systolic Congestive Heart Failure * Record in and outs * measure daily weights * Patient is on therapuetic Lovenox-->bridge to Coumadin * Cardiology (Dr. Allan) on board-->help appreciated * Lasix 40mg IV Q 12hours * ECHO (08/26/16) EF 40%; LV of normal size; Systolic function moderately impaired, flattened septum, mitral regurg ( mild- mod), moderate to severe tricuspid regurg * ROMIX3: negative * Lisinopril 5mg PO daily * Cardizem 30mg PO TID * Monitor on telemetry; patient * Chest Xray (08/28/16): mild central pulmonary vascular congestive changes with bibasilar alveolar-type infiltrates-atlectasis and small efusions right greater than left 2) New Onset Atrial Fibrillation * HASBLED: 1 * CHADS: 3 * Bridge to Lovenox to Coumadin * INR: 1.3-->Given Coumadin 5mg PO X1 * Cardizem 30mg PO TID for rate control 3) Abdominal Pain * Abd US (08/24/16)- liver exhibits slightly nodular contour and heterogeneous echo texture with small amount of ascites. Prob cholelithiasis with wall thickening and positive sonograpic clark's sign. CBD noted 6.8 mm. rule out acute cholecystitis. No leukocytosis or fevers noted. * Ordered for HIDA scan * GI (Dr. Donald) on board * General surgery (Dr. Lazcano) on board * Negative Clark's sign * Per GI, patient mostly indirect. Consistenet with Gilbert's syndrome. No intervention. LFTs otherwise normal. Do not suspect cholecystitis-->will sign off * Abdominal pain may be due in part from heart failure 4) DVT (right LLE) * First time * Lovenox bridge to Coumadin. * On coumadin 5 mg PO once start 08/29; INR: 1.3 * V/Q scan (08/28): low probability * CT angio (): no central, lobar, proximal segmental pulmonary arterial filling defects noted. Moderate to large right sided and small-left sided pleural effusion with associated compressive atelectasis and/or pneumonia. mosaic attenutation throughout both lungs suggestive of small airway disease with patchy airspace opacities. enlarged heart with small pericardial effsions, abdominal ascites, general anasarca. * 08/26/16 Doppler: Right posterior tibial and bother of the peroneal veins were non compressible with echolucent thrombus and around mid calf area. There was evidence of infrapopliteral deep vein thrombosis of the right lower extremity. No evidence of deep/superficial thrombosis of the left lower extremity 5) Hypothyroidism * Levothyroxine 50 mcg daily in the AM * Monitor 6) Prophylactic measure * Coumadin 5 mg PO today, follow-up INR * No SCDs * Pepcid 20mg BID for GI ppx
[2016-08-30] MEDS: Levothyroxine 50 MCG TAB PO SCH (06:45)
[2016-08-30 07:30] LABS: BASO % 0.4 % (0.0-2.0); EOS # 0.2 K/uL (0.0-0.7); EOS % 2.9 % (0.0-4.0); HEMATOCRIT 41.4 % (34.0-47.0); LYMPH # 1.5 K/uL (1.0-4.3); LYMPH % 27.9 % (20.0-40.0); MEAN CELL VOLUME 89.5 fL (81.0-99.0); MEAN CORPUSCULAR HEMOGLOBIN 28.6 pg (27.0-31.0); MEAN PLATELET VOLUME 8.1 fL (7.2-11.7); MONO # 0.9 K/uL (0.0-0.8); MONO % 16.7 % (0.0-10.0); NRBC % 0.1 % (0.0-2.0); RED CELL DISTRIBUTION WIDTH 16.6 % (11.5-14.5); WHITE BLOOD COUNT 5.3 K/uL (4.8-10.8)
[2016-08-30 07:40] LABS: INR 1.2
[2016-08-30 07:46] LABS: POTASSIUM 5.4 mmol/L (3.6-5.2)
[2016-08-30 07:48] LABS: ALB/GLOB RATIO 0.9 (1.0-2.1); BILIRUBIN,TOTAL 1.7 mg/dL (0.2-1.3); TOTAL PROTEIN 7.9 g/dL (6.3-8.3)
[2016-08-30 07:49] LABS: CALCIUM 8.9 mg/dl (8.6-10.4); MAGNESIUM 2.5 mg/dL (1.6-2.3); PHOSPHOROUS 5.4 mg/dL (2.5-4.5)
--- NOTE | 2016-08-30 08:20 | CP.PCM.PN ---
Subjective - Date & Time of Evaluation Date of Evaluation: 08/30/16 Time of Evaluation: 08: - Subjective Subjective: PGY1 Progress note for Dr. Lazcano: Patient seen and examined. Patient resting comfortably in bed. Patient denies abdominal pain, nausea, vomiting, diarrhea, or constipation. Patient only complaint of pain in right leg from DVT. Patient states she is ambulating well. Objective - Vital Signs/Intake and Output Vital Signs (last 24 hours): Temp Pulse Resp BP Pulse Ox 97.6 F 81 20 119/64 98 08/29/16 23:32 08/29/16 23:32 08/29/16 23:32 08/29/16 23:32 08/29/16 23:32 - Medications Medications: Current Medications Aspirin (Aspirin Chewable) 81 mg PO DAILY [facility] Last Admin: 08/29/16 09:24 Dose: 81 mg Diltiazem HCl (Cardizem) 30 mg PO TID [facility] Last Admin: 08/29/16 17:49 Dose: 30 mg Famotidine (Pepcid) 20 mg PO BID [facility] Last Admin: 08/29/16 17:49 Dose: 20 mg Furosemide (Lasix) 40 mg IVP Q12 [facility] Last Admin: 08/29/16 22:18 Dose: 40 mg Levothyroxine Sodium (Synthroid) 50 mcg PO DAILY@0630 [facility] Last Admin: 08/30/16 06:45 Dose: Not Given Lisinopril (Zestril) 5 mg PO DAILY [facility] Last Admin: 08/29/16 09:00 Dose: 5 mg Ondansetron HCl (Zofran Inj) 4 mg IVP Q6 PRN PRN Reason: Nausea/Vomiting - Labs Labs: 08/30/16 07:12 08/30/16 07:12 PT 12.9 SECONDS (9.7-12.2) H 08/30/16 07:12 INR 1.2 08/30/16 07:12 APTT 39 SECONDS (21-34) H 08/30/16 07:12 - Constitutional Appears: Well, No Acute Distress - Head Exam Head Exam: ATRAUMATIC, NORMOCEPHALIC - Respiratory Exam Respiratory Exam: Decreased Breath Sounds, NORMAL BREATHING PATTERN - Cardiovascular Exam Cardiovascular Exam: REGULAR RHYTHM - GI/Abdominal Exam GI & Abdominal Exam: Soft, Normal Bowel Sounds. absent: Distended, Firm, Guarding, Rigid, Tenderness (negative Clark's sign) - Extremities Exam Extremities Exam: Pedal Edema (bilateral pitting), Tenderness (bilateral lower extremities, right greater than left) - Neurological Exam Neurological Exam: Alert, Awake Assessment and Plan - Assessment and Plan (Free Text) Assessment: 76 year old female with new diagnosis of CHF, A.fib, DVT right lower extremity, positive sonographic Clark's sign on abdominal US- concern for cholecystitis - Abdominal US 08/24: gallbladder wall thickening 8.4mm with positive sonographic Clark's sign, CBD of 6.8mm which could be age-related as there is no intraductal stone identified - Patient currently asymptomatic- negative Clark's sign on examination, patient denies abdominal pain - HIDA scan ordered for today, will follow up result - Further recs per Dr. Lazcano
--- NOTE | 2016-08-30 14:33 | NM ---
PROCEDURE: Radionuclide hepatobiliary scan HISTORY: r/o cholecystitis, thickened GB wall on abd US COMPARISON: Abdominal ultrasound 08/25/2016 TECHNIQUE: Following the intravenous administration of 5.4 mCi of technetium 99 M Choletec, sequential images of the abdomen were obtained in the anterior projection for 60 minutes, at 5 minutes intervals. A right lateral view was obtained at 60 minutes. Additional images obtained hours in the anterior, right lateral and LAM positions. FINDINGS: There is normal uptake in excretion of the radiopharmaceutical by the liver. The bowel is visualized by a 25 minutes post administration. The gallbladder is not visualized by 3 hours post administration. Findings are consistent with obstructed cystic duct IMPRESSION: Findings consistent with obstructed cystic duct. Likely acute cholecystitis.
--- NOTE | 2016-08-30 15:00 | CP.PCM.PN ---
<Prachi Whyte V - Last Filed: 08/30/16 19:26> Objective - Vital Signs/Intake and Output Vital Signs (last 24 hours): Temp Pulse Resp BP Pulse Ox 98.0 F 90 18 95/59 L 97 08/30/16 15:49 08/30/16 15:49 08/30/16 15:49 08/30/16 15:49 08/30/16 15:49 Intake and Output: 08/30/16 08/31/16 18:59 06:59 Intake Total 150 Balance 150 - Medications Medications: Current Medications Diltiazem HCl (Cardizem) 30 mg PO TID [facility] Last Admin: 08/30/16 18:42 Dose: 30 mg Enoxaparin Sodium (Lovenox) 60 mg SC Q12 [facility] Famotidine (Pepcid) 20 mg PO BID [facility] Last Admin: 08/30/16 18:42 Dose: 20 mg Furosemide (Lasix) 40 mg IVP DAILY [facility] Last Admin: 08/30/16 10:00 Dose: Not Given Levothyroxine Sodium (Synthroid) 50 mcg PO DAILY@0630 [facility] Last Admin: 08/30/16 06:45 Dose: Not Given Lisinopril (Zestril) 5 mg PO DAILY [facility] Last Admin: 08/30/16 10:00 Dose: Not Given Ondansetron HCl (Zofran Inj) 4 mg IVP Q6 PRN PRN Reason: Nausea/Vomiting - Labs Labs: 08/30/16 07:12 08/30/16 07:12 PT 12.9 SECONDS (9.7-12.2) H 08/30/16 07:12 INR 1.2 08/30/16 07:12 APTT 39 SECONDS (21-34) H 08/30/16 07:12 Attending/Attestation - Attestation I have personally seen and examined this patient.: Yes I have fully participated in the care of the patient.: Yes I have reviewed all pertinent clinical information, including history, physical exam and plan: Yes Notes (Text): Patient seen, examined, and case discussed with day-time resident. Patient denies acute complaints. Patient seen with Gujarati speaking daughter. General surgery (Dr. Lazcano) on board given acute cholecystitis on AB US. Patient completed HIDA today which was positive. Discussed with patient and daughter at bedside, with assistance in translation, Gujarati () language indicating this test was positive, and recommendation for cholecystecomy. Patient denies abdominal pain, denies associated biliary colic, and would like to speak with family regarding possible surgery. Patient started on Lovenox-->Coumadin bridge to cover for DVT and Atrial fibrillation. Patient given Coumadin 5mg PO tonight while on therapeutic Lovenox. If patient wants surgery, will need to reverse prior to surgery. Changed Lasix from 40mg IV Q 12hours to once a daily Per review of weights recorded, and clinical exam, patient appears less edematous Assessment/Plan 1) Acute Systolic Congestive Heart Failure * Record in and outs * measure daily weights * Patient is on therapuetic Lovenox-->bridge to Coumadin * Cardiology (Dr. Allan) on board-->help appreciated * Changed to Lasix 40mg IV Qdaily * ECHO (08/26/16) EF 40%; LV of normal size; Systolic function moderately impaired, flattened septum, mitral regurg ( mild- mod), moderate to severe tricuspid regurg * ROMIX3: negative * Lisinopril 5mg PO daily * Cardizem 30mg PO TID * Monitor on telemetry; patient * Chest Xray (08/28/16): mild central pulmonary vascular congestive changes with bibasilar alveolar-type infiltrates-atlectasis and small efusions right greater than left 2) New Onset Atrial Fibrillation * HASBLED: 1 * CHADS: 3 * Bridge to Lovenox to Coumadin * INR: 1.2-->Given Coumadin 5mg PO tonight-->f/u INR * Cardizem 30mg PO TID for rate control 3) Abdominal Pain * Abd US (08/24/16)- liver exhibits slightly nodular contour and heterogeneous echo texture with small amount of ascites. Prob cholelithiasis with wall thickening and positive sonograpic clark's sign. CBD noted 6.8 mm. rule out acute cholecystitis. No leukocytosis or fevers noted. * HIDA scan (08/30/16): obstructed cystic duct. likely acute cholecystitis * GI (Dr. Donald) on board * General surgery (Dr. Lazcano) on board * Negative Clark's sign * Per GI, patient mostly indirect. Consistenet with Gilbert's syndrome. No intervention. LFTs otherwise normal. Do not suspect cholecystitis-->will sign off * Abdominal pain may be due in part from heart failure 4) DVT (right LLE) * First time * Lovenox bridge to Coumadin. * On coumadin 5 mg PO once, INR: 1.2 * V/Q scan (08/28): low probability * CT angio (): no central, lobar, proximal segmental pulmonary arterial filling defects noted. Moderate to large right sided and small-left sided pleural effusion with associated compressive atelectasis and/or pneumonia. mosaic attenutation throughout both lungs suggestive of small airway disease with patchy airspace opacities. enlarged heart with small pericardial effsions, abdominal ascites, general anasarca. * 08/26/16 Doppler: Right posterior tibial and bother of the peroneal veins were non compressible with echolucent thrombus and around mid calf area. There was evidence of infrapopliteral deep vein thrombosis of the right lower extremity. No evidence of deep/superficial thrombosis of the left lower extremity 5) Hypothyroidism * Levothyroxine 50 mcg daily in the AM * Monitor 6) Prophylactic measure * Coumadin 5 mg PO today, follow-up INR * No SCDs contraindication DVT * Pepcid 20mg BID for GI ppx Disposition: * If patient chooses to have surgery for cholecystitis, positive HIDA, denies abdominal pain, will need to reverse coumadin * If patient does not have surgery, will need to bridge patient to Coumadin for DVT and atrial fibrillation. <Mary Wells - Last Filed: 08/30/16 21:03> Subjective - Date & Time of Evaluation Date of Evaluation: 08/30/16 Time of Evaluation: 07:08 - Subjective Subjective: PGY 1 Medicine Note- Dr. Whyte's service Pt seen and examined in no acute distress. Patient's family present bedside. HIDA scan performed with positive findings noted. Patient's family made aware with recommendations for surgical considerations. Family to discuss and decide. Patient denies subjective fevers, chills, nausea, vomiting, diarrhea, constipation, dyspnea, chest pain or palpitations at this time. Objective - Vital Signs/Intake and Output Vital Signs (last 24 hours): Temp Pulse Resp BP Pulse Ox 98.2 F 66 18 104/61 94 L 08/30/16 08:38 08/30/16 08:38 08/30/16 08:38 08/30/16 08:38 08/30/16 08:38 - Medications Medications: Current Medications Diltiazem HCl (Cardizem) 30 mg PO TID [facility] Last Admin: 08/30/16 09:00 Dose: Not Given Enoxaparin Sodium (Lovenox) 60 mg SC Q12 [facility] Famotidine (Pepcid) 20 mg PO BID [facility] Last Admin: 08/30/16 10:00 Dose: Not Given Furosemide (Lasix) 40 mg IVP DAILY [facility] Last Admin: 08/30/16 10:00 Dose: Not Given Levothyroxine Sodium (Synthroid) 50 mcg PO DAILY@0630 [facility] Last Admin: 08/30/16 06:45 Dose: Not Given Lisinopril (Zestril) 5 mg PO DAILY [facility] Last Admin: 08/30/16 10:00 Dose: Not Given Ondansetron HCl (Zofran Inj) 4 mg IVP Q6 PRN PRN Reason: Nausea/Vomiting Warfarin Sodium (Coumadin) 7.5 mg PO 1800 [facility] Stop: 08/30/16 18:01 - Labs Labs: 08/30/16 07:12 08/30/16 07:12 PT 12.9 SECONDS (9.7-12.2) H 08/30/16 07:12 INR 1.2 08/30/16 07:12 APTT 39 SECONDS (21-34) H 08/30/16 07:12 - Constitutional Appears: No Acute Distress - Head Exam Head Exam: ATRAUMATIC, NORMAL INSPECTION, NORMOCEPHALIC - Eye Exam Eye Exam: EOMI, Normal appearance, PERRL Pupil Exam: NORMAL ACCOMODATION - ENT Exam ENT Exam: Mucous Membranes Moist, Normal Exam - Neck Exam Neck Exam: Full ROM - Respiratory Exam Respiratory Exam: NORMAL BREATHING PATTERN - Cardiovascular Exam Cardiovascular Exam: +S1, +S2 - GI/Abdominal Exam GI & Abdominal Exam: Soft, Normal Bowel Sounds. absent: Guarding, Rigid, Tenderness - Extremities Exam Extremities Exam: Full ROM, Normal Capillary Refill, Pedal Edema (trace). absent: Calf Tenderness - Neurological Exam Neurological Exam: Alert, Awake, Oriented x3 - Skin Skin Exam: Dry, Erythema (mild b/l), Intact Assessment and Plan - Assessment and Plan (Free Text) Assessment: Fluid over loaded CHF suspected right sided heart failure HR Stable CXR - Cardiomegaly; Subsegmental R mid and lower atelectasis. Poss R pleural effusion. Lasix 40 mg IV Q12-> changed to once daily ECHO EF 40%; LV of normal size; Systolic function moderately impaired, flattened septum, mitral regurg ( mild- mod), moderate to severe tricuspid regurg Trop neg x3 Head of bed elevation >30degrees Lisinopril 5mg Daily Strict I&O F/U Pulm ( Dr. Dill ) recommendations for V/Q scan to rule out distal chronic emboli. VQ scan of low probability for PE. Lasix therapy to be continued and monitored. Patient may not need thoracentesis if diuresed appropriately. Daily weights- Nursing communication regarding use of consistent scale if bed weights are off. 08/28 Chest XRAY with noted improvement. New Onset A.Fib HASBLED: 1 (Age above 65) CHADSVASC: 4 ( Age above 75, CHF, Female) 08/25: Continue to monitor on tele EKG - Atrial Fibrillation. Rate controlled on cardizem 30 mg PO TID. Monitor HR as patient tends to become bradycardic at times. Currently stable. F/U Cardio reccs Coumadin 5 mg PO Abd pain No pain on initial examination this morning. 08/25: ABD US is negative for any acute process, this again could be fluid overload from heart failure. Dependent pitting edema Abd US- liver exhibits slightly nodular contour and heterogeneous echo texture with small amount of ascites. Prob cholelithiasis with wall thickening and positive sonograpic clark's sign. CBD noted 6.8 mm. rule out acute cholecystitis. No leukocytosis or fevers noted. Zofran prn GGTP negative, Direct bili 0.7. mild T.Bili elevation 1.7. Consult to GI team ( Dr. Donald/Genna): Do not suspect cholecystitis as abdomen is not tender. 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 No interventional recommendation at this time. Second opinion Surgery- Recommendations for HIDA scan with positive findings. Recommendations for surgery however patient's family still considering. Zosyn and flagyl empiric coverage DVT Lovenox bridge to Coumadin. On coumadin 5 mg PO start 08/29 Monitor INR Low prob for PE Hypothyroidism Levothyroxine 50 mcg daily in the AM Monitor Prophylactic measure Coumadin 5 mg PO No SCDs Pepcid 20mg BID Disposition: If patient chooses to have surgery for cholecystitis, positive HIDA, denies abdominal pain, will need to reverse coumadin If patient does not have surgery, will need to bridge patient to Coumadin for DVT and atrial fibrillation.
[2016-08-30] MEDS: Enoxaparin 60 mg Syringe SC SCH ×2 (22:03)
[2016-08-30] MEDS: Piperacillin/Tazobact 3.375 GM in Sodium Chloride 100 ML IVPB SCH (22:07)
[2016-08-30] MEDS: metroNIDAZOLE IV 500 mg/100 ml 500 MG/100 ML BAG IVPB SCH (23:17)
[2016-08-31] MEDS: Piperacillin/Tazobact 3.375 GM in Sodium Chloride 100 ML IVPB SCH ×3 (05:15→21:44)
[2016-08-31] MEDS: Levothyroxine 50 MCG TAB PO SCH (06:25)
[2016-08-31] MEDS: metroNIDAZOLE IV 500 mg/100 ml 500 MG/100 ML BAG IVPB SCH ×3 (06:25→22:40)
[2016-08-31 08:28] LABS: BASO % 0.6 % (0.0-2.0); EOS # 0.1 K/uL (0.0-0.7); EOS % 2.7 % (0.0-4.0); HEMATOCRIT 42.4 % (34.0-47.0); LYMPH # 1.8 K/uL (1.0-4.3); LYMPH % 32.9 % (20.0-40.0); MEAN CELL VOLUME 89.7 fL (81.0-99.0); MEAN CORPUSCULAR HEMOGLOBIN 28.5 pg (27.0-31.0); MEAN CORPUSCULAR HGB CONC 31.8 g/dL (33.0-37.0); MEAN PLATELET VOLUME 7.8 fL (7.2-11.7); MONO # 0.9 K/uL (0.0-0.8); MONO % 17.1 % (0.0-10.0); RED CELL DISTRIBUTION WIDTH 16.9 % (11.5-14.5); WHITE BLOOD COUNT 5.4 K/uL (4.8-10.8)
[2016-08-31 08:43] LABS: INR 1.2
[2016-08-31 08:49] LABS: POTASSIUM 4.4 mmol/L (3.6-5.2)
[2016-08-31 08:51] LABS: ALB/GLOB RATIO 0.8 (1.0-2.1); BILIRUBIN,TOTAL 1.5 mg/dL (0.2-1.3); TOTAL PROTEIN 7.5 g/dL (6.3-8.3)
[2016-08-31 08:52] LABS: CALCIUM 7.9 mg/dl (8.6-10.4); MAGNESIUM 2.5 mg/dL (1.6-2.3); PHOSPHOROUS 5.2 mg/dL (2.5-4.5)
--- NOTE | 2016-08-31 09:18 | CP.PCM.PN ---
<NabilAruna - Last Filed: 08/31/16 13:48> Subjective - Date & Time of Evaluation Date of Evaluation: 08/31/16 Time of Evaluation: 09:18 - Subjective Subjective: Patient seen and examined at bedside with family present. Diagnosis of cholecystitis discussed; however, patient and family declining surgery. Risks of not having surgery discussed with family. Patient continues to be asymptomatic and denies fever, chills, abdominal pain, nausea, and vomiting. Patient is tolerating diet well and having normal bowel movements. She also denies chest pain, palpitations and tenderness to bilateral lower extremities. Objective - Vital Signs/Intake and Output Vital Signs (last 24 hours): Temp Pulse Resp BP Pulse Ox 97.5 F L 84 18 89/60 L 95 08/31/16 07:27 08/31/16 08:53 08/31/16 07:27 08/31/16 07:27 08/31/16 07:27 Intake and Output: 08/31/16 08/31/16 06:59 18:59 Intake Total 440 Balance 440 - Medications Medications: Current Medications Diltiazem HCl (Cardizem) 30 mg PO TID [facility] Last Admin: 08/30/16 18:42 Dose: 30 mg Enoxaparin Sodium (Lovenox) 60 mg SC Q12 [facility] Last Admin: 08/30/16 22:03 Dose: 60 mg Famotidine (Pepcid) 20 mg PO BID [facility] Last Admin: 08/30/16 18:42 Dose: 20 mg Furosemide (Lasix) 40 mg IVP DAILY [facility] Last Admin: 08/30/16 10:00 Dose: Not Given Metronidazole (Flagyl) 500 mg in 100 mls @ 100 mls/hr IVPB Q8 [facility] Last Admin: 08/31/16 06:25 Dose: 100 mls/hr Piperacillin Sod/Tazobactam (Sod 3.375 gm/ Sodium Chloride) 100 mls @ 200 mls/ hr IVPB Q8H [facility] Last Admin: 08/31/16 05:15 Dose: 200 mls/hr Levothyroxine Sodium (Synthroid) 50 mcg PO DAILY@0630 [facility] Last Admin: 08/31/16 06:25 Dose: 50 mcg Lisinopril (Zestril) 5 mg PO DAILY [facility] Last Admin: 08/30/16 10:00 Dose: Not Given Ondansetron HCl (Zofran Inj) 4 mg IVP Q6 PRN PRN Reason: Nausea/Vomiting - Labs Labs: 08/31/16 08:15 08/31/16 08:15 PT 13.6 SECONDS (9.7-12.2) H 08/31/16 08:15 INR 1.2 08/31/16 08:15 APTT 39 SECONDS (21-34) H 08/30/16 07:12 - Constitutional Appears: Non-toxic, No Acute Distress - Head Exam Head Exam: ATRAUMATIC, NORMAL INSPECTION, NORMOCEPHALIC - Eye Exam Eye Exam: EOMI, Normal appearance, PERRL - ENT Exam ENT Exam: Mucous Membranes Moist - Neck Exam Neck Exam: Full ROM, Normal Inspection - Respiratory Exam Respiratory Exam: Clear to Ausculation Bilateral, NORMAL BREATHING PATTERN. absent: Rales, Rhonchi, Wheezes - Cardiovascular Exam Cardiovascular Exam: +S1, +S2. absent: Tachycardia - GI/Abdominal Exam GI & Abdominal Exam: Soft, Normal Bowel Sounds. absent: Distended, Firm, Tenderness - Extremities Exam Extremities Exam: Normal Inspection. absent: Pedal Edema, Tenderness Additional comments: 1+ edema to bilateral lower extremities - Neurological Exam Neurological Exam: Alert, Awake, Oriented x3 - Psychiatric Exam Psychiatric exam: Normal Affect, Normal Mood - Skin Skin Exam: Intact, Normal Color Assessment and Plan - Assessment and Plan (Free Text) Assessment: Fluid over loaded CHF suspected right sided heart failure HR Stable CXR - Cardiomegaly; Subsegmental R mid and lower atelectasis. Poss R pleural effusion. Lasix 40 mg IV once daily ECHO EF 40%; LV of normal size; Systolic function moderately impaired, flattened septum, mitral regurg ( mild- mod), moderate to severe tricuspid regurg Trop neg x3 Head of bed elevation >30degrees Lisinopril 5mg Daily Strict I&O F/U Pulm ( Dr. Dill ) recommendations for V/Q scan to rule out distal chronic emboli. VQ scan of low probability for PE. Lasix therapy to be continued and monitored. Patient may not need thoracentesis if diuresed appropriately. Daily weights- Nursing communication regarding use of consistent scale if bed weights are off. 08/28 Chest XRAY with noted improvement. New Onset A.Fib HASBLED: 1 (Age above 65) CHADSVASC: 4 ( Age above 75, CHF, Female) 08/25: Continue to monitor on tele EKG - Atrial Fibrillation. Rate controlled on cardizem 30 mg PO TID. Monitor HR as patient tends to become bradycardic at times. Currently stable. F/U Cardio reccs Coumadin 5 mg PO tonight. Follow-up INR tomorrow Abd pain No pain to palpation Patient declining cholecystectomy. Vegetarian diet started. 08/25: ABD US is negative for any acute process, this again could be fluid overload from heart failure. Dependent pitting edema Abd US- liver exhibits slightly nodular contour and heterogeneous echo texture with small amount of ascites. Prob cholelithiasis with wall thickening and positive sonograpic jaramillo's sign. CBD noted 6.8 mm. rule out acute cholecystitis. No leukocytosis or fevers noted. Zofran prn GGTP negative, Direct bili 0.7. mild T.Bili elevation 1.7. Consult to GI team ( Dr. Donald/Genna): Do not suspect cholecystitis as abdomen is not tender. 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 No interventional recommendation at this time. Second opinion Surgery- Recommendations for HIDA scan with positive findings. Recommendations for surgery however patient's family still considering. Continue on Zosyn and flagyl empiric coverage DVT Lovenox bridge to Coumadin. Patient to get Coumadin 5 mg po tonight. Monitor INR Low prob for PE Hypothyroidism Levothyroxine 50 mcg daily in the AM Monitor Prophylactic measure Coumadin 5 mg PO No SCDs Pepcid 20mg BID Disposition: Continue to bridge patient to Coumadin for DVT and atrial fibrillation. <Brett Sheth H - Last Filed: 08/31/16 15:54> Objective - Vital Signs/Intake and Output Vital Signs (last 24 hours): Temp Pulse Resp BP Pulse Ox 97.5 F L 84 18 89/60 L 95 08/31/16 07:27 08/31/16 08:53 08/31/16 07:27 08/31/16 07:27 08/31/16 07:27 Intake and Output: 08/31/16 08/31/16 06:59 18:59 Intake Total 440 Balance 440 - Medications Medications: Current Medications Diltiazem HCl (Cardizem) 30 mg PO TID [facility] Last Admin: 08/31/16 13:25 Dose: Not Given Enoxaparin Sodium (Lovenox) 60 mg SC Q12 [facility] Last Admin: 08/31/16 09:59 Dose: 60 mg Famotidine (Pepcid) 20 mg PO BID [facility] Last Admin: 08/31/16 09:58 Dose: 20 mg Furosemide (Lasix) 40 mg IVP DAILY [facility] Last Admin: 08/31/16 09:59 Dose: Not Given Metronidazole (Flagyl) 500 mg in 100 mls @ 100 mls/hr IVPB Q8 [facility] Last Admin: 08/31/16 13:27 Dose: 100 mls/hr Piperacillin Sod/Tazobactam (Sod 3.375 gm/ Sodium Chloride) 100 mls @ 200 mls/ hr IVPB Q8H [facility] Last Admin: 08/31/16 13:28 Dose: 200 mls/hr Levothyroxine Sodium (Synthroid) 50 mcg PO DAILY@0630 [facility] Last Admin: 08/31/16 06:25 Dose: 50 mcg Lisinopril (Zestril) 5 mg PO DAILY [facility] Last Admin: 08/31/16 10:00 Dose: Not Given Ondansetron HCl (Zofran Inj) 4 mg IVP Q6 PRN PRN Reason: Nausea/Vomiting Warfarin Sodium (Coumadin) 5 mg PO 1800 [facility] Stop: 08/31/16 18:01 - Labs Labs: 08/31/16 08:15 08/31/16 08:15 PT 13.6 SECONDS (9.7-12.2) H 08/31/16 08:15 INR 1.2 08/31/16 08:15 APTT 39 SECONDS (21-34) H 08/30/16 07:12 Attending/Attestation - Attestation I have personally seen and examined this patient.: Yes I have fully participated in the care of the patient.: Yes I have reviewed all pertinent clinical information, including history, physical exam and plan: Yes Notes (Text): Medical Attending: Patient was seen and examined by me. Agree with the above note by the resident. The patient was with family member as well. The patient was according to the family looking well. She did not want any surgery. Currently still in atrial fibrialltion at this moment. Countinue with coumadin and follow INRs.
[2016-08-31] MEDS: Enoxaparin 60 mg Syringe SC SCH ×2 (09:59→21:47)
--- NOTE | 2016-08-31 12:05 | CP.PCM.PN ---
Subjective - Date & Time of Evaluation Date of Evaluation: 08/31/16 Time of Evaluation: 06:55 - Subjective Subjective: Gen Surg: DR. Lazcano Pt S&E. No complaints. Denies n/v. Denies abdominal pain. Pt family at bedside. NAEO. Objective - Vital Signs/Intake and Output Vital Signs (last 24 hours): Temp Pulse Resp BP Pulse Ox 97.5 F L 84 18 89/60 L 95 08/31/16 07:27 08/31/16 08:53 08/31/16 07:27 08/31/16 07:27 08/31/16 07:27 Intake and Output: 08/31/16 08/31/16 06:59 18:59 Intake Total 440 Balance 440 - Medications Medications: Current Medications Diltiazem HCl (Cardizem) 30 mg PO TID [facility] Last Admin: 08/31/16 09:59 Dose: Not Given Enoxaparin Sodium (Lovenox) 60 mg SC Q12 [facility] Last Admin: 08/31/16 09:59 Dose: 60 mg Famotidine (Pepcid) 20 mg PO BID [facility] Last Admin: 08/31/16 09:58 Dose: 20 mg Furosemide (Lasix) 40 mg IVP DAILY [facility] Last Admin: 08/31/16 09:59 Dose: Not Given Metronidazole (Flagyl) 500 mg in 100 mls @ 100 mls/hr IVPB Q8 [facility] Last Admin: 08/31/16 06:25 Dose: 100 mls/hr Piperacillin Sod/Tazobactam (Sod 3.375 gm/ Sodium Chloride) 100 mls @ 200 mls/ hr IVPB Q8H [facility] Last Admin: 08/31/16 05:15 Dose: 200 mls/hr Levothyroxine Sodium (Synthroid) 50 mcg PO DAILY@0630 [facility] Last Admin: 08/31/16 06:25 Dose: 50 mcg Lisinopril (Zestril) 5 mg PO DAILY [facility] Last Admin: 08/31/16 10:00 Dose: Not Given Ondansetron HCl (Zofran Inj) 4 mg IVP Q6 PRN PRN Reason: Nausea/Vomiting - Labs Labs: 08/31/16 08:15 08/31/16 08:15 PT 13.6 SECONDS (9.7-12.2) H 08/31/16 08:15 INR 1.2 08/31/16 08:15 APTT 39 SECONDS (21-34) H 08/30/16 07:12 - Constitutional Appears: No Acute Distress - Eye Exam Eye Exam: Normal appearance - Respiratory Exam Respiratory Exam: NORMAL BREATHING PATTERN - Cardiovascular Exam Cardiovascular Exam: +S1, +S2 - GI/Abdominal Exam GI & Abdominal Exam: Soft. absent: Guarding, Tenderness - Neurological Exam Neurological Exam: Alert, Awake, Oriented x3 - Psychiatric Exam Psychiatric exam: Normal Mood - Skin Skin Exam: Normal Color, Warm Assessment and Plan - Assessment and Plan (Free Text) Assessment: 76 year old female with new diagnosis of CHF, A.fib, DVT right lower extremity, positive sonographic Clark's sign on abdominal US- concern for cholecystitis - Patient continues to be asymptomatic- negative Clark's sign on examination, patient denies abdominal pain - Patient and patient's family are refusing the idea of surgery since patient is asymptomatic. -Patient wishes no intervention at this present time States if she has pain or her quality of is affected she will be receptive to surgical intervention. - Further recs per Dr. Lazcano
[2016-08-31 16:10] VITALS: RESP 20
[2016-09-01] MEDS: Piperacillin/Tazobact 3.375 GM in Sodium Chloride 100 ML IVPB SCH (05:12)
[2016-09-01] MEDS: metroNIDAZOLE IV 500 mg/100 ml 500 MG/100 ML BAG IVPB SCH ×2 (06:04→17:51)
[2016-09-01] MEDS: Levothyroxine 50 MCG TAB PO SCH (06:04)
[2016-09-01 07:33] LABS: INR 1.6
--- NOTE | 2016-09-01 07:40 | CP.PCM.PN ---
<Aruna Ferrer - Last Filed: 09/01/16 10:56> Subjective - Date & Time of Evaluation Date of Evaluation: 09/01/16 Time of Evaluation: 07:38 - Subjective Subjective: Patient seen and examined at bedside with family present. Patient continues to be asymptomatic and denies abdominal pain, nausea, and vomiting. She is educated that if she begins to experience symptoms, to inform the medical team or if upon discharge, go to the emergency department. Patient is asking to be discharged home. Family and patient made aware that her INR is not therapeutic and she will need to get another dose of Coumadin tonight. Patient denies chest pain, shortness of breath, leg pain and swelling. Objective - Vital Signs/Intake and Output Vital Signs (last 24 hours): Temp Pulse Resp BP Pulse Ox 97.7 F 83 20 104/63 99 08/31/16 23:19 09/01/16 01:02 08/31/16 23:19 08/31/16 23:19 08/31/16 23:19 - Medications Medications: Current Medications Diltiazem HCl (Cardizem) 30 mg PO TID [facility] Last Admin: 08/31/16 17:53 Dose: 30 mg Enoxaparin Sodium (Lovenox) 60 mg SC Q12 [facility] Last Admin: 08/31/16 21:47 Dose: 60 mg Famotidine (Pepcid) 20 mg PO DAILY [facility] Furosemide (Lasix) 40 mg IVP DAILY [facility] Last Admin: 08/31/16 09:59 Dose: Not Given Piperacillin Sod/Tazobactam (Sod 2.25 gm/ Sodium Chloride) 100 mls @ 200 mls/ hr IVPB Q8H [facility] Metronidazole (Flagyl) 500 mg in 100 mls @ 100 mls/hr IVPB 0600,1800 [facility] Sodium Chloride (Sodium Chloride 0.45%) 1,000 mls @ 50 mls/hr IV .Q20H [facility] Levothyroxine Sodium (Synthroid) 50 mcg PO DAILY@0630 [facility] Last Admin: 09/01/16 06:04 Dose: 50 mcg Lisinopril (Zestril) 5 mg PO DAILY [facility] Last Admin: 08/31/16 10:00 Dose: Not Given Ondansetron HCl (Zofran Inj) 4 mg IVP Q6 PRN PRN Reason: Nausea/Vomiting - Labs Labs: 08/31/16 08:15 08/31/16 08:15 PT 18.7 SECONDS (9.7-12.2) H D 09/01/16 07:18 INR 1.6 09/01/16 07:18 APTT 39 SECONDS (21-34) H 08/30/16 07:12 - Constitutional Appears: Non-toxic, No Acute Distress - Head Exam Head Exam: ATRAUMATIC, NORMAL INSPECTION, NORMOCEPHALIC - Eye Exam Eye Exam: EOMI, Normal appearance, PERRL - ENT Exam ENT Exam: Mucous Membranes Moist - Neck Exam Neck Exam: Full ROM, Normal Inspection - Respiratory Exam Respiratory Exam: Clear to Ausculation Bilateral, NORMAL BREATHING PATTERN. absent: Rales, Rhonchi, Wheezes - Cardiovascular Exam Cardiovascular Exam: +S1, +S2. absent: Tachycardia, REGULAR RHYTHM - GI/Abdominal Exam GI & Abdominal Exam: Soft, Normal Bowel Sounds. absent: Firm, Guarding, Tenderness - Extremities Exam Extremities Exam: Normal Inspection. absent: Pedal Edema, Tenderness - Neurological Exam Neurological Exam: Alert, Awake, Oriented x3 - Psychiatric Exam Psychiatric exam: Normal Affect, Normal Mood - Skin Skin Exam: Intact, Normal Color, Warm Assessment and Plan - Assessment and Plan (Free Text) Assessment: Fluid over loaded CHF suspected right sided heart failure HR Stable CXR - Cardiomegaly; Subsegmental R mid and lower atelectasis. Poss R pleural effusion. Lasix 40 mg IV once daily ECHO EF 40%; LV of normal size; Systolic function moderately impaired, flattened septum, mitral regurg ( mild- mod), moderate to severe tricuspid regurg Trop neg x3 Head of bed elevation >30degrees Lisinopril 5mg Daily Strict I&O F/U Pulm ( Dr. Dill ) recommendations for V/Q scan to rule out distal chronic emboli. VQ scan of low probability for PE. Lasix therapy to be continued and monitored. Patient may not need thoracentesis if diuresed appropriately. Daily weights- Nursing communication regarding use of consistent scale if bed weights are off. 08/28 Chest XRAY with noted improvement. New Onset A.Fib HASBLED: 1 (Age above 65) CHADSVASC: 4 ( Age above 75, CHF, Female) 09/01: Currently stable, continue to monitor. 08/25: Continue to monitor on tele EKG - Atrial Fibrillation. Rate controlled on cardizem 30 mg PO TID. Monitor HR as patient tends to become bradycardic at times. Currently stable. F/U Cardio reccs Coumadin 5 mg PO tonight. Follow-up INR tomorrow Cholecystitis 09/01: Continues to be asymptomatic. Patient and family educated to return to the emergency department if pain develops when discharged. Patient declining cholecystectomy. Vegetarian diet started. 08/25: ABD US is negative for any acute process, this again could be fluid overload from heart failure. Dependent pitting edema Abd US- liver exhibits slightly nodular contour and heterogeneous echo texture with small amount of ascites. Prob cholelithiasis with wall thickening and positive sonograpic clark's sign. CBD noted 6.8 mm. rule out acute cholecystitis. No leukocytosis or fevers noted. Zofran prn GGTP negative, Direct bili 0.7. mild T.Bili elevation 1.7. Consult to GI team ( Dr. Donald/Genna): Do not suspect cholecystitis as abdomen is not tender. 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 No interventional recommendation at this time. Second opinion Surgery- Recommendations for HIDA scan with positive findings. Recommendations for surgery however patient's family still considering. Continue on Zosyn and flagyl empiric coverage DVT Lovenox bridge to Coumadin. 09/01: Patient receive Coumadin mg po tonight. Monitor INR Low prob for PE Hypothyroidism Levothyroxine 50 mcg daily in the AM Monitor Prophylactic measure Coumadin 5 mg PO No SCDs Pepcid 20mg BID Disposition: Continue to bridge patient to Coumadin for DVT and atrial fibrillation. <Prachi Whyte V - Last Filed: 09/01/16 13:08> Objective - Vital Signs/Intake and Output Vital Signs (last 24 hours): Temp Pulse Resp BP Pulse Ox 97.7 F 81 20 127/72 98 09/01/16 08:54 09/01/16 08:54 09/01/16 08:54 09/01/16 08:54 09/01/16 08:54 - Medications Medications: Current Medications Diltiazem HCl (Cardizem) 30 mg PO TID [facility] Last Admin: 09/01/16 09:55 Dose: 30 mg Enoxaparin Sodium (Lovenox) 60 mg SC Q12 [facility] Last Admin: 09/01/16 09:56 Dose: 60 mg Famotidine (Pepcid) 20 mg PO DAILY [facility] Last Admin: 09/01/16 09:55 Dose: 20 mg Furosemide (Lasix) 40 mg IVP DAILY [facility] Last Admin: 08/31/16 09:59 Dose: Not Given Piperacillin Sod/Tazobactam (Sod 2.25 gm/ Sodium Chloride) 100 mls @ 200 mls/ hr IVPB Q8H [facility] Metronidazole (Flagyl) 500 mg in 100 mls @ 100 mls/hr IVPB 0600,1800 [facility] Sodium Chloride (Sodium Chloride 0.45%) 1,000 mls @ 50 mls/hr IV .Q20H [facility] Last Admin: 09/01/16 08:00 Dose: 50 mls/hr Levothyroxine Sodium (Synthroid) 50 mcg PO DAILY@0630 [facility] Last Admin: 09/01/16 06:04 Dose: 50 mcg Lisinopril (Zestril) 5 mg PO DAILY [facility] Last Admin: 09/01/16 09:58 Dose: 5 mg Ondansetron HCl (Zofran Inj) 4 mg IVP Q6 PRN PRN Reason: Nausea/Vomiting - Labs Labs: 08/31/16 08:15 08/31/16 08:15 PT 18.7 SECONDS (9.7-12.2) H D 09/01/16 07:18 INR 1.6 09/01/16 07:18 APTT 39 SECONDS (21-34) H 08/30/16 07:12 Attending/Attestation - Attestation I have personally seen and examined this patient.: Yes I have fully participated in the care of the patient.: Yes I have reviewed all pertinent clinical information, including history, physical exam and plan: Yes Notes (Text): Patient seen, examined, and case discussed with day-time resident. Patient denies acute complaints. Patient seen with Gujarati speaking daughter and son-in-law. Discussed recommendation for surgery, patient reports she does not have abdominal pain and does not want surgery at this time per translation with daughter. Patient started on Lovenox-->Coumadin bridge to cover for DVT and Atrial fibrillation. Patient given Coumadin 5mg PO yesterday, and INR: 1.6. Will need to order Coumadin pending rest of lab results Held Lasix, and renally dose antibiotics; patient started on gentle IV hydration given mild ARMINDA likely secondary to diuresis Assessment/Plan 1) Acute Systolic Congestive Heart Failure * Record in and outs * measure daily weights * Patient is on therapuetic Lovenox-->bridge to Coumadin * Cardiology (Dr. Allan) on board-->help appreciated * Held Lasix * ECHO (08/26/16) EF 40%; LV of normal size; Systolic function moderately impaired, flattened septum, mitral regurg ( mild- mod), moderate to severe tricuspid regurg * ROMIX3: negative * Lisinopril 5mg PO daily * Cardizem 30mg PO TID * Monitor on telemetry; patient * Chest Xray (08/28/16): mild central pulmonary vascular congestive changes with bibasilar alveolar-type infiltrates-atlectasis and small efusions right greater than left * Gentle IV hydration; monitor for fluid overload 2) New Onset Atrial Fibrillation * HASBLED: 1 * CHADS: 3 * Bridge to Lovenox to Coumadin * INR: 1.6 * Cardizem 30mg PO TID for rate control 3) Abdominal Pain * Abd US (08/24/16)- liver exhibits slightly nodular contour and heterogeneous echo texture with small amount of ascites. Prob cholelithiasis with wall thickening and positive sonograpic clark's sign. CBD noted 6.8 mm. rule out acute cholecystitis. No leukocytosis or fevers noted. * HIDA scan (08/30/16): obstructed cystic duct. likely acute cholecystitis--> patient refuses surgery; risks and benefits per surgery and myself * GI (Dr. Donald) on board * General surgery (Dr. Lazcano) on board * Negative Clark's sign * Per GI, patient mostly indirect. Consistent with Gilbert's syndrome. No intervention. LFTs otherwise normal. Do not suspect cholecystitis-->will sign off * Zosyn 2.25g IV Q 8 hours (active since 08/31/16) and Flagyl 500mg IV Q 12hours * Florastor 250mg PO bid 4) DVT (right LLE) * First time * Lovenox bridge to Coumadin. * INR: 1.6 * V/Q scan (08/28): low probability * CT angio (08/26/): no central, lobar, proximal segmental pulmonary arterial filling defects noted. Moderate to large right sided and small-left sided pleural effusion with associated compressive atelectasis and/or pneumonia. mosaic attenutation throughout both lungs suggestive of small airway disease with patchy airspace opacities. enlarged heart with small pericardial effsions, abdominal ascites, general anasarca. * 08/26/16 Doppler: Right posterior tibial and bother of the peroneal veins were non compressible with echolucent thrombus and around mid calf area. There was evidence of infrapopliteral deep vein thrombosis of the right lower extremity. No evidence of deep/superficial thrombosis of the left lower extremity 5) Hypothyroidism * Levothyroxine 50 mcg daily in the AM * Monitor 6) Acute Kidney injury * like secondary to diuresis * pending labwork today to monitor BUN/Cr * Held Lasix (158-->121lbs) * Urinating 7) Prophylactic measure * Pending lab work to given Coumadin tonight * No SCDs contraindication DVT * Pepcid 20mg daily for GI ppx Disposition: * Patient does not have surgery, will need to bridge patient to Coumadin for DVT and atrial fibrillation. INR is not therapeutic. Discharge planning for home. Will need to be established in the clinic upon discharge.
[2016-09-01] MEDS: Sodium Chloride 0.45% 1,000 ML IV SCH (08:00)
[2016-09-01] MEDS: Enoxaparin 60 mg Syringe SC SCH ×2 (09:56→21:42)
--- NOTE | 2016-09-01 10:15 | CP.PCM.PN ---
Subjective - Date & Time of Evaluation Date of Evaluation: 09/01/16 Time of Evaluation: 07:15 - Subjective Subjective: General Surgery Pt S&E, NAEO. Pt and family declining surgery. Pt doing well, denies abd pain, nausea, and vomiting. Objective - Vital Signs/Intake and Output Vital Signs (last 24 hours): Temp Pulse Resp BP Pulse Ox 97.7 F 81 20 127/72 98 09/01/16 08:54 09/01/16 08:54 09/01/16 08:54 09/01/16 08:54 09/01/16 08:54 - Medications Medications: Current Medications Diltiazem HCl (Cardizem) 30 mg PO TID [facility] Last Admin: 09/01/16 09:55 Dose: 30 mg Enoxaparin Sodium (Lovenox) 60 mg SC Q12 [facility] Last Admin: 09/01/16 09:56 Dose: 60 mg Famotidine (Pepcid) 20 mg PO DAILY [facility] Last Admin: 09/01/16 09:55 Dose: 20 mg Furosemide (Lasix) 40 mg IVP DAILY [facility] Last Admin: 08/31/16 09:59 Dose: Not Given Piperacillin Sod/Tazobactam (Sod 2.25 gm/ Sodium Chloride) 100 mls @ 200 mls/ hr IVPB Q8H [facility] Metronidazole (Flagyl) 500 mg in 100 mls @ 100 mls/hr IVPB 0600,1800 [facility] Sodium Chloride (Sodium Chloride 0.45%) 1,000 mls @ 50 mls/hr IV .Q20H [facility] Last Admin: 09/01/16 08:00 Dose: 50 mls/hr Levothyroxine Sodium (Synthroid) 50 mcg PO DAILY@0630 [facility] Last Admin: 09/01/16 06:04 Dose: 50 mcg Lisinopril (Zestril) 5 mg PO DAILY [facility] Last Admin: 09/01/16 09:58 Dose: 5 mg Ondansetron HCl (Zofran Inj) 4 mg IVP Q6 PRN PRN Reason: Nausea/Vomiting - Labs Labs: 08/31/16 08:15 08/31/16 08:15 PT 18.7 SECONDS (9.7-12.2) H D 09/01/16 07:18 INR 1.6 09/01/16 07:18 APTT 39 SECONDS (21-34) H 08/30/16 07:12 - Constitutional Appears: Non-toxic, No Acute Distress - Head Exam Head Exam: ATRAUMATIC, NORMOCEPHALIC - Eye Exam Eye Exam: EOMI. absent: Scleral icterus - Respiratory Exam Respiratory Exam: NORMAL BREATHING PATTERN. absent: Respiratory Distress - GI/Abdominal Exam GI & Abdominal Exam: Soft. absent: Distended, Guarding, Tenderness - Neurological Exam Neurological Exam: Alert, Awake - Skin Skin Exam: Dry, Warm Assessment and Plan - Assessment and Plan (Free Text) Assessment: 76F with likely chronic cholecystitis. Plan: Pt and family declining surgical intervention unless she is having pain or her quality of life is affected Pt continues to be asymptomatic No surgical intervention at this time. D/W Dr. Jaleesa Khan PGY3
[2016-09-01] MEDS: Piperacillin/Tazobact 2.25 GM in Sodium Chloride 100 ML IVPB SCH ×2 (13:43→21:41)
[2016-09-01 17:14] LABS: BASO # 0.1 K/uL (0.0-0.2); EOS # 0.1 K/uL (0.0-0.7); EOS % 1.9 % (0.0-4.0); HEMATOCRIT 40.7 % (34.0-47.0); LYMPH # 1.7 K/uL (1.0-4.3); LYMPH % 28.7 % (20.0-40.0); MEAN CELL VOLUME 90.5 fL (81.0-99.0); MEAN CORPUSCULAR HEMOGLOBIN 28.7 pg (27.0-31.0); MEAN CORPUSCULAR HGB CONC 31.7 g/dL (33.0-37.0); MONO # 1.1 K/uL (0.0-0.8); MONO % 18.5 % (0.0-10.0); RED CELL DISTRIBUTION WIDTH 16.9 % (11.5-14.5); WHITE BLOOD COUNT 5.9 K/uL (4.8-10.8)
[2016-09-01 17:22] LABS: CHLORIDE 100 mmol/L (98-107); SODIUM 136 mmol/L (132-148)
[2016-09-01 17:24] LABS: BILIRUBIN,TOTAL 1.3 mg/dL (0.2-1.3); GFR AFRICAN-AMERICAN > 60
[2016-09-01 17:25] LABS: ALB/GLOB RATIO 0.8 (1.0-2.1); ALKALINE PHOSPHATASE 75 U/L (38-126); ALT/SGPT 16 U/L (9-52); AST/SGOT 50 U/L (14-36); BLOOD UREA NITROGEN 18 mg/dL (7-17); CARBON DIOXIDE 25 mmol/L (22-30); GLUCOSE,RANDOM 104 mg/dL (65-105); PHOSPHOROUS 3.4 mg/dL (2.5-4.5); TOTAL PROTEIN 7.9 g/dL (6.3-8.3)
[2016-09-01 17:26] LABS: CALCIUM 7.8 mg/dl (8.6-10.4); MAGNESIUM 2.6 mg/dL (1.6-2.3)
[2016-09-01 17:27] LABS: POTASSIUM 5.5 mmol/L (3.6-5.2)
[2016-09-01] MEDS: Saccharomyces Boulardi 250 mg Cap PO SCH (17:52)
[2016-09-02] MEDS: Sodium Chloride 0.45% 1,000 ML IV SCH (05:16)
[2016-09-02] MEDS: metroNIDAZOLE IV 500 mg/100 ml 500 MG/100 ML BAG IVPB SCH (05:58)
[2016-09-02] MEDS: Levothyroxine 50 MCG TAB PO SCH (05:59)
[2016-09-02] MEDS ORDERED: Piperacill/Tazo 2.25gm in Dex 2.25 GM/50 ML BAG IVPB SCH (06:00)
[2016-09-02 07:40] LABS: INR 2.4
[2016-09-02 07:45] LABS: BASO % 0.7 % (0.0-2.0); EOS # 0.1 K/uL (0.0-0.7); HEMATOCRIT 40.7 % (34.0-47.0); LYMPH # 2.2 K/uL (1.0-4.3); MEAN CELL VOLUME 90.7 fL (81.0-99.0); MEAN CORPUSCULAR HEMOGLOBIN 28.6 pg (27.0-31.0); MEAN CORPUSCULAR HGB CONC 31.5 g/dL (33.0-37.0); MONO % 15.5 % (0.0-10.0); WHITE BLOOD COUNT 6.3 K/uL (4.8-10.8)
[2016-09-02 07:50] LABS: CHLORIDE 102 mmol/L (98-107); SODIUM 135 mmol/L (132-148)
[2016-09-02 07:51] LABS: POTASSIUM 4.8 mmol/L (3.6-5.2)
[2016-09-02 07:52] LABS: GFR AFRICAN-AMERICAN > 60
[2016-09-02 07:53] LABS: ALB/GLOB RATIO 0.8 (1.0-2.1); ALKALINE PHOSPHATASE 79 U/L (38-126); ALT/SGPT 21 U/L (9-52); AST/SGOT 38 U/L (14-36); BLOOD UREA NITROGEN 14 mg/dL (7-17); CARBON DIOXIDE 24 mmol/L (22-30); GLUCOSE,RANDOM 91 mg/dL (65-105); PHOSPHOROUS 3.3 mg/dL (2.5-4.5); TOTAL PROTEIN 7.3 g/dL (6.3-8.3)
[2016-09-02 07:54] LABS: CALCIUM 7.9 mg/dl (8.6-10.4); MAGNESIUM 2.5 mg/dL (1.6-2.3)
--- NOTE | 2016-09-02 08:34 | CP.PCM.PN ---
Subjective - Date & Time of Evaluation Date of Evaluation: 09/02/16 Time of Evaluation: 08:27 - Subjective Subjective: PGY1 Progress Note for Dr. Lazcano Patient S&E, family present at bedside. Patient and family refusing surgical intervention. Patient eating well and denies abdominal pain, nausea, vomiting. Objective - Vital Signs/Intake and Output Vital Signs (last 24 hours): Temp Pulse Resp BP Pulse Ox 97.7 F 92 H 20 112/73 97 09/01/16 23:35 09/02/16 00:00 09/01/16 23:35 09/01/16 23:35 09/01/16 23:35 Intake and Output: 09/02/16 09/02/16 06:59 18:59 Intake Total 550 Balance 550 - Medications Medications: Current Medications Diltiazem HCl (Cardizem) 30 mg PO TID [facility] Last Admin: 09/01/16 17:52 Dose: 30 mg Enoxaparin Sodium (Lovenox) 60 mg SC Q12 [facility] Last Admin: 09/01/16 21:42 Dose: 60 mg Famotidine (Pepcid) 20 mg PO DAILY [facility] Last Admin: 09/01/16 09:55 Dose: 20 mg Furosemide (Lasix) 40 mg IVP DAILY [facility] Last Admin: 08/31/16 09:59 Dose: Not Given Metronidazole (Flagyl) 500 mg in 100 mls @ 100 mls/hr IVPB 0600,1800 [facility] Last Admin: 09/02/16 05:58 Dose: 100 mls/hr Sodium Chloride (Sodium Chloride 0.45%) 1,000 mls @ 50 mls/hr IV .Q20H [facility] Last Admin: 09/02/16 05:16 Dose: 50 mls/hr Piperacillin Sod/Tazobactam Sod (Zosyn 2.25 Gm Iv Premix) 2.25 gm in 50 mls @ 100 mls/hr IVPB Q8H [facility] Last Admin: 09/02/16 05:12 Dose: 100 mls/hr Levothyroxine Sodium (Synthroid) 50 mcg PO DAILY@0630 [facility] Last Admin: 09/02/16 05:59 Dose: 50 mcg Lisinopril (Zestril) 5 mg PO DAILY [facility] Last Admin: 09/01/16 09:58 Dose: 5 mg Ondansetron HCl (Zofran Inj) 4 mg IVP Q6 PRN PRN Reason: Nausea/Vomiting Saccharomyces Gemadii (Florastor) 250 mg PO BID [facility] Last Admin: 09/01/16 17:52 Dose: 250 mg - Labs Labs: 09/02/16 07:24 09/02/16 07:24 PT 27.9 SECONDS (9.7-12.2) H D 09/02/16 07:24 INR 2.4 D 09/02/16 07:24 APTT 39 SECONDS (21-34) H 08/30/16 07:12 - Constitutional Appears: Non-toxic, No Acute Distress - Head Exam Head Exam: ATRAUMATIC, NORMOCEPHALIC - ENT Exam ENT Exam: Mucous Membranes Moist - Respiratory Exam Respiratory Exam: NORMAL BREATHING PATTERN - GI/Abdominal Exam GI & Abdominal Exam: Soft. absent: Tenderness - Skin Skin Exam: Warm Assessment and Plan - Assessment and Plan (Free Text) Assessment: 76 year old female with likely chronic cholecystitis - Family refusing surgical intervention - Patient continues to be asymptomatic - will sign off as patient and family declining surgical intervention. - D/W Dr. Lazcano
[2016-09-02 08:40] VITALS: BP 119/80; PULSE 87; TEMP 98.8; O2SAT 98
[2016-09-02] MEDS: Saccharomyces Boulardi 250 mg Cap PO SCH (09:42)
[2016-09-02] MEDS: Enoxaparin 60 mg Syringe SC SCH (09:43)
--- NOTE | 2016-09-02 12:18 | CP.PCM.DIS ---
<Mary Wells - Last Filed: 09/02/16 17:31> Provider - Provider Date of Admission: 08/24/16 13:20 Attending physician: Prachi Whyte DO Consults: GI : Dr. Donald/Genna Pulm: Dr. Evans Surgery: Dr. Lazcano Cardio: Dr. Allan Time Spent in preparation of Discharge (in minutes): 36 Diagnosis - Discharge Diagnosis (1) Abdominal pain Status: Acute (2) Acute CHF Status: Acute (3) Atrial fibrillation Status: Acute (4) DVT (deep venous thrombosis) Status: Acute (5) Hypothyroid Status: Acute Hospital Course - Lab Results Lab Results: Most Recent Lab Values WBC 6.3 K/uL (4.8-10.8) 09/02/16 07:24 RBC 4.49 Mil/uL (3.80-5.20) 09/02/16 07:24 Hgb 12.8 g/dL (11.0-16.0) 09/02/16 07:24 Hct 40.7 % (34.0-47.0) 09/02/16 07:24 MCV 90.7 fL (81.0-99.0) 09/02/16 07:24 MCH 28.6 pg (27.0-31.0) 09/02/16 07:24 MCHC 31.5 g/dL (33.0-37.0) L 09/02/16 07:24 RDW 17.0 % (11.5-14.5) H 09/02/16 07:24 Plt Count 290 K/uL (130-400) 09/02/16 07:24 MPV 8.0 fL (7.2-11.7) 09/02/16 07:24 Neut % (Auto) 46.8 % (50.0-75.0) L 09/02/16 07:24 Lymph % (Auto) 35.0 % (20.0-40.0) 09/02/16 07:24 [place] % (Auto) 15.5 % (0.0-10.0) H 09/02/16 07:24 Eos % (Auto) 2.0 % (0.0-4.0) 09/02/16 07:24 Baso % (Auto) 0.7 % (0.0-2.0) 09/02/16 07:24 Neut # 3.0 K/uL (1.8-7.0) 09/02/16 07:24 Lymph # 2.2 K/uL (1.0-4.3) 09/02/16 07:24 [place] # 1.0 K/uL (0.0-0.8) H 09/02/16 07:24 Eos # 0.1 K/uL (0.0-0.7) 09/02/16 07:24 Baso # 0.0 K/uL (0.0-0.2) 09/02/16 07:24 PT 27.9 SECONDS (9.7-12.2) H D 09/02/16 07:24 INR 2.4 D 09/02/16 07:24 APTT 39 SECONDS (21-34) H 08/30/16 07:12 Sodium 135 mmol/L (132-148) 09/02/16 07:24 Potassium 4.8 mmol/L (3.6-5.2) 09/02/16 07:24 Chloride 102 mmol/L (98-107) 09/02/16 07:24 Carbon Dioxide 24 mmol/L (22-30) 09/02/16 07:24 Anion Gap 15 (10-20) 09/02/16 07:24 BUN 14 mg/dL (7-17) 09/02/16 07:24 Creatinine 0.9 MG/DL (0.7-1.2) 09/02/16 07:24 Est GFR ( Amer) > 60 09/02/16 07:24 Est GFR (Non-Af Amer) > 60 09/02/16 07:24 POC Glucose (mg/dL) 91 mg/dL (65-110) 09/01/16 11:55 Random Glucose 91 mg/dL (65-105) 09/02/16 07:24 Hemoglobin A1c 6.1 % (4.2-6.5) 08/25/16 06:06 Calcium 7.9 mg/dl (8.6-10.4) L 09/02/16 07:24 Phosphorus 3.3 mg/dL (2.5-4.5) 09/02/16 07:24 Magnesium 2.5 mg/dL (1.6-2.3) H 09/02/16 07:24 Total Bilirubin 1.0 mg/dL (0.2-1.3) 09/02/16 07:24 Direct Bilirubin 0.7 mg/dL (0.0-0.4) H 08/27/16 06:48 GGT 20 U/L (8-78) 08/27/16 06:48 AST 38 U/L (14-36) H D 09/02/16 07:24 ALT 21 U/L (9-52) 09/02/16 07:24 Alkaline Phosphatase 79 U/L (38-126) 09/02/16 07:24 Total Creatine Kinase 42 U/L (30-135) 08/25/16 06:06 CK-MB (Mass) 0.79 ng/mL (0.0-3.38) 08/25/16 06:06 Troponin I < 0.0120 ng/mL (0.00-0.120) 08/24/16 12:19 Troponin I, Quant < 0.0120 ng/mL (0.00-0.120) 08/25/16 06:06 NT-Pro-B Natriuret Pep 1510 pg/mL (0-900) H 08/28/16 07:16 Total Protein 7.3 g/dL (6.3-8.3) 09/02/16 07:24 Albumin 3.3 g/dL (3.5-5.0) L 09/02/16 07:24 Globulin 4.1 gm/dL (2.2-3.9) H 09/02/16 07:24 Albumin/Globulin Ratio 0.8 (1.0-2.1) L 09/02/16 07:24 Triglycerides 63 mg/dL (0-149) 08/25/16 06:06 Cholesterol 112 mg/dL (0-199) 08/25/16 06:06 LDL Cholesterol Direct 69 mg/dL (0-129) 08/25/16 06:06 HDL Cholesterol 31 mg/dL (30-70) 08/25/16 06:06 Free T4 1.35 ng/dL (0.78-2.19) 08/25/16 10:50 Total T3 1.19 nmol/L (1.49-2.60) L 08/25/16 10:50 TSH 3rd Generation 14.00 mIU/L (0.46-4.68) H 08/25/16 06:06 - Hospital Course Hospital Course: On Admission: 76yo F with unknown PMHx due to poor compliance and follow up here for evaluation of Swollen lower extremities, Abd pain for the past 3 weeks. Patient speaks Gujarati. Family at bedside who helped translate. Patient recently moved to the [place] about 1 month ago. For the past 3 weeks, she has been having increasing shortness of breath and gradual increase in lower extremity swelling and pain. Patient was seeing a physician in [place] who prescribed a medication ( unknown name) and she has not been taking it regularly, last time taken was about 4 weeks ago. Patient denies any chest pain. She is normally able to walk within her home, over the past week she has been getting severely short of breath and is only able to walk 20 steps before SOB. Able to lay down flat when she sleeps. Denies cough. She also c/o some Abd pain, located diffusely but worst in the RUQ, no association with food, no N/V/D. No F/C. No sick contacts. No Headache. Denies chest pain or palpitations. Denies any weight gain Hospital Course: Patient seen and examined with initial diagnosis of newly diagnosed CHF as well as atrial fibrillation, abdominal pain and DVT. Dr. Jerrod Allan (Cardiology) was consulted with recommendations to begin medication management for which she was started on cardizem. Patient also started on jacob inhibitor, lasix therapy as well. Beta yomaira was to be added on but patient became bradycardic over the night and then day and thus it was not continued. Patient was worked up for abdominal pain. Findings on ABD US and routine labs suggestive of cholecystitis and thus GI consulted. GI workup did not suspect cholecystitis but rather fluid overload from heart failure. Nonetheless, second evaluation was discussed and surgery was contacted. Plans were to perform HIDA. Findings were positive and surgery recommendations were addressed with patient and family. At this time, family did not want to pursue surgical intervention since patient's abdominal pain resolved from admission. Patient also maintained being afebrile and not having a white blood cell count. Patient had venous Doppler findings positive for DVT. Patient was treated with therapeutic lovenox and then bridged to coumadin. Patient found to be hypothyroid and started on synthroid. Patient discharged with instructions to follow up in [facility] for weekly INR draws and continued management. Patient's symptoms improved during course here. This is a brief summary of events. For a complete course, refer to the medical record. Discharge Exam - Head Exam Head Exam: ATRAUMATIC, NORMOCEPHALIC - Eye Exam Eye Exam: EOMI, Normal appearance Pupil Exam: NORMAL ACCOMODATION - ENT Exam ENT Exam: Normal Exam - Neck Exam Neck exam: Full Rom - Respiratory Exam Respiratory Exam: NORMAL BREATHING PATTERN. absent: Wheezes - Cardiovascular Exam Cardiovascular Exam: +S1, +S2 - GI/Abdominal Exam GI & Abdominal Exam: Normal Bowel Sounds, Soft. absent: Tenderness - Extremities Exam Extremities exam: full ROM, pedal edema (trace to minimal) - Back Exam Back exam: FULL ROM - Neurological Exam Neurological exam: Alert, CN II-XII Intact, Oriented x3 - Psychiatric Exam Psychiatric exam: Normal Affect, Normal Mood - Skin Skin Exam: Dry, Normal Color, Warm Additional comments: erythema resolved, decreased skin turgor Discharge Plan - Discharge Medications Prescriptions: RX: Aspirin [Aspirin Chewable] 81 mg PO DAILY #30 Ciprofloxacin/Ciprofloxa HCl [Ciprofloxacin] 500 mg PO BID #14 ter RX: diltiaZEM [Cardizem] 30 mg PO TID #90 tab Furosemide [Lasix] 20 mg PO BID #60 tablet RX: Levothyroxine [Synthroid] 50 mcg PO DAILY@0630 #30 tab RX: Lisinopril [Zestril] 5 mg PO DAILY #30 tab Metronidazole [Flagyl] 500 mg PO BID #14 tablet RX: Warfarin [Coumadin] 5 mg PO 1800 #30 tab - Follow Up Plan Condition: FAIR Disposition: HOME/ ROUTINE Instructions: Ciprofloxacin (By mouth), Diltiazem (By mouth), Lisinopril (By mouth), Furosemide (By mouth), Levothyroxine (By mouth), Warfarin (By mouth), Aspirin (By mouth), Metronidazole (By mouth), Heart Failure (DC), Atrial Fibrillation (DC), Heart Healthy Diet (DC) Additional Instructions: Patient is medically stable for discharge home. Patient is to follow up with the [facility] within one week to establish care and to follow up on weekly INR draws. Patent should call to make an appointment before then. She should request to have an appointment with Dr. Tiny Hall ( if possible) as she will be able to converse best with patient and patient's family. Patient should follow up with Dr. Jerrod Allan within two weeks for further management of atrial fibrillation. Patient is to begin the new medications with instructions as listed on labeling. The new medications are : Diltiazem 30 mg, take one by mouth three times a day; Lasix 20 mg, take one by mouth twice a day; Synthroid 50 mcg, take daily in the morning; Zestril 5 mg, take once daily; Flagyl 500 mg, take one by mouth two times a day, for one week Ciprofloxacin 500 mg, take one by mouth two times a day, for week. ( Please eat a probiotic yogurt daily for one week while taking antibiotics) Aspirin 81 mg, take once daily and Coumadin 5 mg, take once daily. If patient falls and hits her head or harms self such that she begins bleeding or has darkened coloration of area affected or starts experiencing bleeding from rectum or vomit or any other return of critical symptoms go to the emergency room. Instructions explained to patient who is aware. Referrals: Jerrod Allan MD [Staff Provider] - Katherine Ott MD [Staff Provider] - Clinical Quality Measures - CQM - VTE Did patient receive overlap therapy during hosptialization?: Yes Is patient being discharged on overlap therapy?: No If yes, what prescription has been given to the patient?: Patient sucessfuly bridged from lovenox to coumadin. Patient on coumadin - CQM - Heart Failure Ejection Fraction: 40 % or Greater JACOB Inhibitor Prescribed: Yes Beta-Yomaira Prescribed: None (decrease in HR ( onset of bradycardia)) Contraindication/Reason for not providing: decrease in HR ( onset of bradycardia ) Angiotensin II Receptor Yomaira Prescribed: No Contraindication/Reason for not providing: on Jacob AnticoagulationTherapy for Atrial Fibrillation/Atrialflutter: Yes Will be discharged to: Home Follow Up Date (must be within 7 days from discharge): 09/09/16 Follow Up Time: 09:00 <Prachi Whyte V - Last Filed: 09/02/16 22:55> Provider - Provider Date of Admission: 08/24/16 13:20 Attending physician: Prachi Whyte, DO Hospital Course - Lab Results Lab Results: Most Recent Lab Values WBC 6.3 K/uL (4.8-10.8) 09/02/16 07:24 RBC 4.49 Mil/uL (3.80-5.20) 09/02/16 07:24 Hgb 12.8 g/dL (11.0-16.0) 09/02/16 07:24 Hct 40.7 % (34.0-47.0) 09/02/16 07:24 MCV 90.7 fL (81.0-99.0) 09/02/16 07:24 MCH 28.6 pg (27.0-31.0) 09/02/16 07:24 MCHC 31.5 g/dL (33.0-37.0) L 09/02/16 07:24 RDW 17.0 % (11.5-14.5) H 09/02/16 07:24 Plt Count 290 K/uL (130-400) 09/02/16 07:24 MPV 8.0 fL (7.2-11.7) 09/02/16 07:24 Neut % (Auto) 46.8 % (50.0-75.0) L 09/02/16 07:24 Lymph % (Auto) 35.0 % (20.0-40.0) 09/02/16 07:24 [place] % (Auto) 15.5 % (0.0-10.0) H 09/02/16 07:24 Eos % (Auto) 2.0 % (0.0-4.0) 09/02/16 07:24 Baso % (Auto) 0.7 % (0.0-2.0) 09/02/16 07:24 Neut # 3.0 K/uL (1.8-7.0) 09/02/16 07:24 Lymph # 2.2 K/uL (1.0-4.3) 09/02/16 07:24 [place] # 1.0 K/uL (0.0-0.8) H 09/02/16 07:24 Eos # 0.1 K/uL (0.0-0.7) 09/02/16 07:24 Baso # 0.0 K/uL (0.0-0.2) 09/02/16 07:24 PT 27.9 SECONDS (9.7-12.2) H D 09/02/16 07:24 INR 2.4 D 09/02/16 07:24 APTT 39 SECONDS (21-34) H 08/30/16 07:12 Sodium 135 mmol/L (132-148) 09/02/16 07:24 Potassium 4.8 mmol/L (3.6-5.2) 09/02/16 07:24 Chloride 102 mmol/L (98-107) 09/02/16 07:24 Carbon Dioxide 24 mmol/L (22-30) 09/02/16 07:24 Anion Gap 15 (10-20) 09/02/16 07:24 BUN 14 mg/dL (7-17) 09/02/16 07:24 Creatinine 0.9 MG/DL (0.7-1.2) 09/02/16 07:24 Est GFR ( Amer) > 60 09/02/16 07:24 Est GFR (Non-Af Amer) > 60 09/02/16 07:24 POC Glucose (mg/dL) 91 mg/dL (65-110) 09/01/16 11:55 Random Glucose 91 mg/dL (65-105) 09/02/16 07:24 Hemoglobin A1c 6.1 % (4.2-6.5) 08/25/16 06:06 Calcium 7.9 mg/dl (8.6-10.4) L 09/02/16 07:24 Phosphorus 3.3 mg/dL (2.5-4.5) 09/02/16 07:24 Magnesium 2.5 mg/dL (1.6-2.3) H 09/02/16 07:24 Total Bilirubin 1.0 mg/dL (0.2-1.3) 09/02/16 07:24 Direct Bilirubin 0.7 mg/dL (0.0-0.4) H 08/27/16 06:48 GGT 20 U/L (8-78) 08/27/16 06:48 AST 38 U/L (14-36) H D 09/02/16 07:24 ALT 21 U/L (9-52) 09/02/16 07:24 Alkaline Phosphatase 79 U/L (38-126) 09/02/16 07:24 Total Creatine Kinase 42 U/L (30-135) 08/25/16 06:06 CK-MB (Mass) 0.79 ng/mL (0.0-3.38) 08/25/16 06:06 Troponin I < 0.0120 ng/mL (0.00-0.120) 08/24/16 12:19 Troponin I, Quant < 0.0120 ng/mL (0.00-0.120) 08/25/16 06:06 NT-Pro-B Natriuret Pep 1510 pg/mL (0-900) H 08/28/16 07:16 Total Protein 7.3 g/dL (6.3-8.3) 09/02/16 07:24 Albumin 3.3 g/dL (3.5-5.0) L 09/02/16 07:24 Globulin 4.1 gm/dL (2.2-3.9) H 09/02/16 07:24 Albumin/Globulin Ratio 0.8 (1.0-2.1) L 09/02/16 07:24 Triglycerides 63 mg/dL (0-149) 08/25/16 06:06 Cholesterol 112 mg/dL (0-199) 08/25/16 06:06 LDL Cholesterol Direct 69 mg/dL (0-129) 08/25/16 06:06 HDL Cholesterol 31 mg/dL (30-70) 08/25/16 06:06 Free T4 1.35 ng/dL (0.78-2.19) 08/25/16 10:50 Total T3 1.19 nmol/L (1.49-2.60) L 08/25/16 10:50 TSH 3rd Generation 14.00 mIU/L (0.46-4.68) H 08/25/16 06:06 Attending/Attestation - Attestation I have personally seen and examined this patient.: Yes I have fully participated in the care of the patient.: Yes I have reviewed all pertinent clinical information, including history, physical exam and plan: Yes Notes (Text): Patient seen, examined, and case discussed with day-time resident. Patient denies acute complaints. Patient seen with Gujarati speaking daughter and son-in-law. Patient refuses surgery. Asymptomatic. Patient advised strongly if she has abdominal pain, over right upper quadrant to be evaluated in the ED immediately given risk of infection, etc. Patient given 1 week of Ciprofloxcin 500mg PO bid and Flagyl 500mg PO bid for antibiotic coverage. Patient's INR is therapeutic at 2.4. Patient advised to follow-up in one week for INR check at the clinic ([phone]). Patient discharged on Coumadin 5mg once a daily. Patient also advised if she falls or bleeds to go the ED to be evaluated immediately. Discharged order and discharge instructions discussed with day-time resident. Patient is medically stable for discharge home. Patient is to follow up with the [facility] within one week to establish care and to follow up on weekly INR draws. Patent should call [phone] to make an appointment. She should request to have an appointment with Resident Physician Dr. Tiny Hall, speaks [place]ati ([place] language) as she will be able to converse best with patient and patient's family. The new medications are : Diltiazem 30 mg, take one by mouth three times a day; Lasix 20 mg, take one by mouth twice a day; Synthroid 50 mcg, take daily in the morning; Zestril 5 mg, take once daily; Flagyl 500 mg, take one by mouth two times a day, for one week Ciprofloxacin 500 mg, take one by mouth two times a day, for week. ( Please eat a probiotic yogurt daily for one week while taking antibiotics) Aspirin 81 mg, take once daily and Coumadin 5 mg, take once daily. If patient falls and hits her head or harms self such that she begins bleeding or has darkened coloration of area affected or starts experiencing bleeding from rectum or vomit or any other return of critical symptoms go to the emergency room. Instructions explained to patient who is aware. This is a summary of patient's hospitalization. Please see EMR for further details Assessment/Plan 1) Acute Systolic Congestive Heart Failure * admit to telemetry * Record in and outs * measure daily weights * Patient is on therapuetic Lovenox-->bridge to Coumadin * Cardiology (Dr. Allan) on board-->help appreciated * ECHO (08/26/16) EF 40%; LV of normal size; Systolic function moderately impaired, flattened septum, mitral regurg ( mild- mod), moderate to severe tricuspid regurg * Chest Xray (08/28/16): mild central pulmonary vascular congestive changes with bibasilar alveolar-type infiltrates-atlectasis and small efusions right greater than left * ROMIX3: negative * Lisinopril 5mg PO daily * Cardizem 30mg PO TID * Lasix 20mg PO daily * Aspirin 81mg PO daily * Patient not started on statin, patient's lipid panel within normal-->follow- up outpatient * Monitor on telemetry; patient * Chest Xray (08/28/16): mild central pulmonary vascular congestive changes with bibasilar alveolar-type infiltrates-atlectasis and small efusions right greater than left 2) New Onset Atrial Fibrillation * HASBLED: 1 * CHADS: 3 * Bridge to Lovenox to Coumadin during hospitalization * Rate control * INR: 2.4 * Discharged on: * Cardizem 30mg PO TID for rate control * Coumadin 5mg PO daily * Repeat INR in one week 3) Abdominal Pain * Abd US (08/24/16)- liver exhibits slightly nodular contour and heterogeneous echo texture with small amount of ascites. Prob cholelithiasis with wall thickening and positive sonograpic clark's sign. CBD noted 6.8 mm. rule out acute cholecystitis. No leukocytosis or fevers noted. * HIDA scan (08/30/16): obstructed cystic duct. likely acute cholecystitis--> patient refuses surgery; risks and benefits per surgery and myself * GI (Dr. Donald) on board * General surgery (Dr. Lazcano) on board * Negative Clark's sign * Per GI, patient mostly indirect. Consistent with Gilbert's syndrome. No intervention. LFTs otherwise normal. Do not suspect cholecystitis-->will sign of * Florastor 250mg PO bid * Patient refuses surgical options * Discharge on Ciprofloxicin 500mg PO bid and Flagyl 500mg PO bid for one week; advised to go to ED for evaluation if abdominal pain occurs 4) DVT (right LLE) * First time * Lovenox bridge to Coumadin. * INR: 2.4 * V/Q scan (08/28): low probability * CT angio (): no central, lobar, proximal segmental pulmonary arterial filling defects noted. Moderate to large right sided and small-left sided pleural effusion with associated compressive atelectasis and/or pneumonia. mosaic attenutation throughout both lungs suggestive of small airway disease with patchy airspace opacities. enlarged heart with small pericardial effsions, abdominal ascites, general anasarca. * 08/26/16 Doppler: Right posterior tibial and bother of the peroneal veins were non compressible with echolucent thrombus and around mid calf area. There was evidence of infrapopliteral deep vein thrombosis of the right lower extremity. No evidence of deep/superficial thrombosis of the left lower extremity 5) Hypothyroidism * Levothyroxine 50 mcg daily in the AM * Monitor 6) Acute Kidney injury * like secondary to diuresis * Held Lasix (158-->121lbs) * Urinating * improved 7) Prophylactic measure * theraputic on Coumadin * No SCDs contraindication DVT * Pepcid 20mg daily for GI ppx
--- NOTE | 2016-09-02 17:42 | PCM.HF ---
Heart Failure Core Measure - Heart Failure Ejection Fraction: 40 % or Greater (lvef 40%) JAKE Inhibitor Prescribed: Yes Beta-Yomaira Prescribed: None Contraindication/Reason for not providing: low HR Angiotensin II Receptor Yomaira Prescribed: No Contraindication/Reason for not providing: on jake AnticoagulationTherapy for Atrial Fibrillation/Atrialflutter: Yes Aldosterone Antagonist Prescribed: No Contraindication/Reason for not providing: hyperkalemia Hydralazine Nitrate Prescribed: No Contraindication/Reason for not providing: lvef 40% Implantable Cardioverter Defibrillator Therapy: No Contraindication/Reason for not providing: lvef 40% Cardiac Resynchronization Therapy Prescribed: No Contraindication/Reason for not providing: lvef 40% - Follow up Will be discharged to: Home Follow Up Date (must be within 7 days from discharge): 09/05/16 Follow Up Time: 09:00
== END 2016-09-02 13:20 | disposition home or self-care (01) | DRG 544 ==
LOC: C.ER 11:21 → C.9E 13:20 → C.6T 14:15
PROVIDERS: ADMIT Hospitalist; ATTEND Hospitalist
DX: I48.91 Unspecified atrial fibrillation (principal); I50.21 Acute systolic (congestive) heart failure; N17.9 Acute kidney failure, unspecified; I82.431 Acute embolism and thrombosis of right popliteal vein; K80.00 Calculus of gallbladder with acute cholecystitis without obstruction; I11.0 Hypertensive heart disease with heart failure; E03.9 Hypothyroidism, unspecified; E80.4 Gilbert syndrome; Z96.641 Presence of right artificial hip joint; T50.1X5A Adverse effect of loop [high-ceiling] diuretics, initial encounter; Z53.29 Procedure and treatment not carried out because of patient's decision for other reasons; Z23 Encounter for immunization

== ENCOUNTER 2017-08-16 17:18 | Emergency (ER) | payer OTHER ==
[2017-08-16 17:18] VITALS: BMI 26.2
[2017-08-16 17:24] VITALS: O2SAT 99
--- NOTE | 2017-08-16 17:50 | C.PDOC ---
History Of Present Illness 77 year old female is brought to the ED by family members for evaluation of redness and swelling to patient's feet. Patient states the area has been slightly swollen for the past 3-4 days, R>L. Patient sts it was happening intermittently for months. Patient states she is asymptomatic now, but primarily presents to the ED because her family member is also here as a patient and her family wanted her to get checked out. She denies fever, chills, chest pain, shortness of breath, foot pain, injury/trauma to the site, or any pain of difficulty with ambulation. Time Seen by Provider: 08/16/17 17:36 Chief Complaint (Nursing): Lower Extremity Problem/Injury History Per: Patient History/Exam Limitations: no limitations Onset/Duration Of Symptoms: Days (3-4) Current Symptoms Are (Timing): Still Present Additional History Per: Patient - Ankle/Foot Description Of Injury: denies: Fell, Struck With Object, Struck Against Object, Twisted Past Medical History Reviewed: Historical Data, Nursing Documentation, Vital Signs Vital Signs: Last Vital Signs Temp 98.9 F 08/16/17 17:21 Pulse 110 H 08/16/17 17:21 Resp 20 08/16/17 17:21 BP 158/89 H 08/16/17 17:21 Pulse Ox 99 08/16/17 18:33 - Medical History PMH: HTN Surgical History: No Surg Hx Family History: States: Unknown Family Hx - Social History Hx Alcohol Use: No Hx Substance Use: No - Immunization History Hx Tetanus Toxoid Vaccination: Yes Hx Influenza Vaccination: No Hx Pneumococcal Vaccination: No Review Of Systems Constitutional: Negative for: Fever, Chills Cardiovascular: Negative for: Chest Pain Respiratory: Negative for: Shortness of Breath Musculoskeletal: Negative for: Foot Pain (right) Skin: Positive for: Other (redness and swelling to right foot ) Physical Exam - Physical Exam Appears: Non-toxic, No Acute Distress Skin: Normal Color, Warm, Dry, No Other (no erythema or warmth to both feet) Head: Atraumatic, Normacephalic Eye(s): bilateral: Normal Inspection Oral Mucosa: Moist Neck: Normal ROM, Supple Chest: Symmetrical, No Deformity, No Tenderness Cardiovascular: Rhythm Regular, No Murmur Respiratory: Normal Breath Sounds, No Rales, No Rhonchi, No Wheezing Back: Normal Inspection Extremity: Normal ROM, No Tenderness, No Pedal Edema, No Calf Tenderness, Capillary Refill (less than 2 seconds ), No Deformity, No Swelling Pulses: Left Dorsalis Pedis: Normal, Right Dorsalis Pedis: Normal Neurological/Psych: Oriented x3, Normal Speech, Normal Cognition Gait: Steady ED Course And Treatment - Laboratory Results Result Diagrams: 08/16/17 18:08 08/16/17 18:08 O2 Sat by Pulse Oximetry: 99 (on RA) Pulse Ox Interpretation: Normal - Other Rad CXR X-Ray: Interpreted by Me, Viewed By Me, Read By Radiologist Interpretation: PROCEDURE: CHEST RADIOGRAPH, 1 VIEW. HISTORY: feet erythema. COMPARISON: Comparison is made to 08/28/2016. FINDINGS: LUNGS: No evidence of new infiltrate or consolidation in the lungs. PLEURA: No pneumothorax or pleural fluid seen. CARDIOVASCULAR: Normal. OSSEOUS STRUCTURES: No significant abnormalities. VISUALIZED UPPER ABDOMEN: Normal. OTHER FINDINGS: None. IMPRESSION: No active disease. Progress Note: Bloodwork and CXR ordered and reviewed. Bloodwork results are within normal limits. CXR shows no active disease. On re-exam, patient is resting comfortably, showing no signs of distress, and is ambulatory in the ED with a steady gait. Patient is stable for discharge. Patient and family members advised to follow up with head piece assembler in clinic within 1-2 days for further evaluation and/or return to the ED if symptoms persist or worsen. Disposition - Disposition Referrals: [facility] [Outside] Podiatry Clinic [Outside] Disposition: HOME/ ROUTINE Disposition Time: 18:49 Condition: STABLE Additional Instructions: Follow up in Medical and Podiatry clinic within 2-3 days. Return to ED if feel worse. Forms: [employer] (Amharic) - Clinical Impression Clinical Impression: Erythema of foot - PA / BROADCAST CORRESPONDENT / Resident Statement MD/DO has reviewed & agrees with the documentation as recorded. - Scribe Statement The provider has reviewed the documentation as recorded by the Scribe (Kelsey Irizarry) All medical record entries made by the Scribe were at my direction and personally dictated by me. I have reviewed the chart and agree that the record accurately reflects my personal performance of the history, physical exam, medical decision making, and the department course for this patient. I have also personally directed, reviewed, and agree with the discharge instructions and disposition.
--- NOTE | 2017-08-16 18:08 | RAD ---
PROCEDURE: CHEST RADIOGRAPH, 1 VIEW HISTORY: feet erythema COMPARISON: Comparison is made to 08/28/2016 FINDINGS: LUNGS: No evidence of new infiltrate or consolidation in the lungs. PLEURA: No pneumothorax or pleural fluid seen. CARDIOVASCULAR: Normal. OSSEOUS STRUCTURES: No significant abnormalities. VISUALIZED UPPER ABDOMEN: Normal. OTHER FINDINGS: None. IMPRESSION: No active disease.
[2017-08-16 18:12] LABS: BASO % 0.6 % (0.0-2.0); EOS % 0.5 % (0.0-4.0); LYMPH # 1.7 K/uL (1.0-4.3); LYMPH % 33.4 % (20.0-40.0); MEAN CORPUSCULAR HGB CONC 33.7 g/dL (33.0-37.0); MEAN PLATELET VOLUME 7.9 fL (7.2-11.7); MONO # 0.8 K/uL (0.0-0.8); MONO % 16.5 % (0.0-10.0); NEUT # 2.5 K/uL (1.8-7.0); RBC 3.45 Mil/uL (3.80-5.20); RED CELL DISTRIBUTION WIDTH 17.8 % (11.5-14.5); WHITE BLOOD COUNT 5.2 K/uL (4.8-10.8)
[2017-08-16 18:19] LABS: HEMOGLOBIN 10.7 g/dL (11.0-16.0)
[2017-08-16 18:26] LABS: ALB/GLOB RATIO 1.1 (1.0-2.1); ALBUMIN 3.6 g/dL (3.5-5.0); ALT/SGPT 19 U/L (9-52); AST/SGOT 23 U/L (14-36); BLOOD UREA NITROGEN 18 mg/dL (7-17); CALCIUM 8.2 mg/dl (8.6-10.4); GFR AFRICAN-AMERICAN > 60; GFR NON-AFRICAN AMERICAN 54
[2017-08-16 18:51] VITALS: BP 162/90; PULSE 86; RESP 18; TEMP 98.4
== END 2017-08-16 19:00 | disposition home or self-care (01) ==
LOC: C.ER 17:18
DX: L53.8 Other specified erythematous conditions (principal); I10 Essential (primary) hypertension

== ENCOUNTER 2017-09-16 13:56 | Inpatient (IN) | payer MEDICAID, OTHER ==
[2017-09-16 13:56] VITALS: BMI 26.2
[2017-09-16] MEDS ORDERED: Iodixanol 320 MG/ML 100 ML BOTTLE IV ONE (14:10)
[2017-09-16 14:15] LABS: BASO % 0.5 % (0.0-2.0); EOS % 0.5 % (0.0-4.0); HEMOGLOBIN 12.8 g/dL (11.0-16.0); LYMPH # 2.2 K/uL (1.0-4.3); MEAN CELL VOLUME 95.1 fL (81.0-99.0); MEAN CORPUSCULAR HEMOGLOBIN 32.2 pg (27.0-31.0); MEAN CORPUSCULAR HGB CONC 33.8 g/dL (33.0-37.0); MEAN PLATELET VOLUME 8.9 fL (7.2-11.7); MONO # 0.6 K/uL (0.0-0.8); MONO % 9.5 % (0.0-10.0); NEUT # 3.7 K/uL (1.8-7.0); NEUT % 56.5 % (50.0-75.0); RBC 3.99 Mil/uL (3.80-5.20); RED CELL DISTRIBUTION WIDTH 15.7 % (11.5-14.5); WHITE BLOOD COUNT 6.5 K/uL (4.8-10.8)
--- NOTE | 2017-09-16 14:23 | CT ---
PROCEDURE: CT HEAD WITHOUT CONTRAST. HISTORY: Code Stroke COMPARISON: None available. TECHNIQUE: Axial computed tomography images were obtained through the head/brain without intravenous contrast. Radiation dose: Total exam DLP = 619.58 mGy-cm. This CT exam was performed using one or more of the following dose reduction techniques: Automated exposure control, adjustment of the mA and/or kV according to patient size, and/or use of iterative reconstruction technique. FINDINGS: HEMORRHAGE: No intracranial hemorrhage. BRAIN: No mass effect or edema. Mild age-appropriate atrophy. Mild periventricular white matter lucency consistent chronic microvascular ischemic change. No evidence of acute infarct. VENTRICLES: Unremarkable. No hydrocephalus. CALVARIUM: Unremarkable. PARANASAL SINUSES: Unremarkable as visualized. No significant inflammatory changes. MASTOID AIR CELLS: Unremarkable as visualized. No inflammatory changes. OTHER FINDINGS: None. IMPRESSION: No evidence of acute infarct. No intracranial hemorrhage. These findings were discussed by telephone with Dr. Vazquez at 2:17 p.m. on 09/16/2017.
[2017-09-16 14:24] LABS: PROTHROMBIN TIME 11.3 SECONDS (9.7-12.2)
[2017-09-16 14:31] LABS: ALB/GLOB RATIO 1.1 (1.0-2.1); ALBUMIN 4.1 g/dL (3.5-5.0); ALT/SGPT 19 U/L (9-52); AST/SGOT 25 U/L (14-36); BLOOD UREA NITROGEN 21 mg/dL (7-17); CALCIUM 9.6 mg/dl (8.6-10.4); GFR AFRICAN-AMERICAN 58; GFR NON-AFRICAN AMERICAN 48; HDL CHOLESTEROL 57 mg/dL (30-70)
[2017-09-16] MEDS ORDERED: Sodium Chloride 0.9% 500 ML IV ONE ×2 (14:35→14:59)
--- NOTE | 2017-09-16 14:38 | C.PDOC ---
History Of Present Illness Patient BIBA for evaluation of left sided facial droop since approx 1:15pm. As per daughter in law, she states her mother went to the lobby of the building and fell alseep there, and around 1:15 she found her and had difficulty arousing her so 911 was called. Daughter in law states she went shopping at approx 12pm, and that was the last time she saw the patient at her baseline, which is AAOx3, ambulatory. On ED arriva, patient has mild left facial droop and LUE weakness. Time Seen by Provider: 09/16/17 13:58 Chief Complaint (Nursing): Weakness/Neurological Deficit History Per: EMS, Family History/Exam Limitations: language barrier Onset/Duration Of Symptoms: Mins (approx 1:15-20pm) Activity At Onset Of Symptoms: Sitting Associated Symptoms Preceding Syncopal Episode: No Predromal Symptoms (Sudden Onset) Seizure Or Post-ictal Symptoms: None Past Medical History Reviewed: Historical Data, Nursing Documentation, Vital Signs Vital Signs: Last Vital Signs Temp 98 F 09/21/17 08:15 Pulse 79 09/21/17 08:15 Resp 18 09/21/17 08:15 BP 131/87 09/21/17 08:15 Pulse Ox 97 09/21/17 08:15 - Medical History PMH: HTN Family History: States: No Known Family Hx, Unknown Family Hx - Social History Hx Alcohol Use: No Hx Substance Use: No - Immunization History Hx Tetanus Toxoid Vaccination: Yes Hx Influenza Vaccination: No Hx Pneumococcal Vaccination: No Review Of Systems Constitutional: Negative for: Fever, Chills Cardiovascular: Negative for: Chest Pain, Palpitations Respiratory: Negative for: Cough, Shortness of Breath Gastrointestinal: Negative for: Nausea, Vomiting, Abdominal Pain Skin: Negative for: Rash Neurological: Positive for: Weakness, Other (left facial droop, mild LUE weakness). 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 No: Infiltrates - CT Scan/US ct head Other Rad Studies (CT/US): Read By Radiologist, Radiology Report Reviewed CT/US Interpretation: Accession No. : [id number]. Patient Name / ID : EV Cole / [id number]. Exam Date : 09/16/2017 14:11:49 ( Approved ). Study Comment : Sex / Age : F / 77Y. Creator : Brett Brandt MD. Dictator : Brett Brandt MD. Guard Dance [employer] : Electric Stop Installer : Brett Brandt MD. Approver2 : Report Date : 09/16/2017 14:22:30. My Comment : . PROCEDURE: CT HEAD WITHOUT CONTRAST. HISTORY: Code Stroke. COMPARISON: None available. TECHNIQUE: Axial computed tomography images were obtained through the head/brain without intravenous contrast. Radiation dose: Total exam DLP = 619.58 mGy-cm. This CT exam was performed using one or more of the following dose reduction techniques: Automated exposure control, adjustment of the mA and/ or kV according to patient size, and/or use of iterative reconstruction technique. FINDINGS: HEMORRHAGE: No intracranial hemorrhage. BRAIN: No mass effect or edema. Mild age-appropriate atrophy. Mild periventricular white matter lucency consistent chronic microvascular ischemic change. No evidence of acute infarct. VENTRICLES: Unremarkable. No hydrocephalus. CALVARIUM: Unremarkable. PARANASAL SINUSES: Unremarkable as visualized. No significant inflammatory changes. MASTOID AIR CELLS: Unremarkable as visualized. No inflammatory changes. OTHER FINDINGS: None. IMPRESSION: No evidence of acute infarct. No intracranial hemorrhage. These findings were discussed by telephone with Dr. Vazquez at 2:17 p.m. on 09/16/2017. cta head/neck Other Rad Studies (CT/US): Read By Radiologist, Radiology Report Reviewed CT/US Interpretation: Accession No. : [id number]. Patient Name / ID : EV Cole / [id number]. Exam Date : 09/16/2017 14:15:52 ( Approved ). Study Comment : Sex / Age : F / 77Y. Creator : Stephanie Snow. Dictator : [employer] : Electric Stop Installer : Anshul Arias MD. Approver2 : Report Date : 14:18:41. My Comment : . CTA BRAIN. HISTORY: Code stroke. TECHNIQUE: IV contrast dose: 100 ml Visipaque. Radiation Dose - DLP: 473.51mGy -cm. FINDINGS: Visualized thoracic aorta exhibits mild atherosclerotic plaque. . In addition, there is atherosclerotic plaque seen at the origin of the left subclavian artery. The common carotid arteries are patent. Some mild plaque changes are seen along both carotid bifurcations more so on the right however no evidence of significant stenosis so far as can be seen. . The distal internal carotid arteries a patent. Partially calcified plaque seen along cavernous carotid segments with mild narrowing. . The supraclinoid carotid arteries are patent. Both vertebral arteries are patent throughout right-sided which is slightly larger in caliber/more dominant than the left side. Basilar artery patent. The visualized the distal branches of the anterior middle and posterior cerebral arteries are patent and appear relatively symmetric. No evidence of large aneurysm nor vascular malformation. IMPRESSION: There are partially calcified atherosclerotic plaque changes seen along both carotid bifurcations and cavernous carotid segments with mild narrowing. No evidence of occlusion. There is no evidence of occlusion of proximal margins of the distal branches of the anterior middle and posterior cerebral arteries. Progress Note: Code stroke called on ED arrival. Blood work, CT/CTA head ordered and reviewed. Patient given PO ASA (for TIA), SC Lovenox (for new onset A fib). 15:49 - Spoke with hospitalist, agrees with admission for TIA, new onset A fib. Reevaluation Time: 14:30 Reassessment Condition: Improved (Patient improved since arrival back to ED from CT scan - no current facial droop present, and patient has 5/5 motor strength all extremies.) - Physician Consult Information Physician Contacted: Timothy Crawford Outcome Of Conversation: Discussed patient with iron cutter neuro Dr. Crawford. Critical Care Time - Critical Care Note Total Time (in mins): 35 Documented critical care: time excludes all time spent performing seperately billable procedures. NIHSS Stroke Scale 2 - Date/Time Evaluation Performed Date Performed: 09/16/17 Time Performed: 13:57 When Was NIHSS Performed: Baseline - How Severe is the Stroke Level of Consciousness: 0=Alert LOC to Questions: 0=Both comments correct LOC to commands: 0=Obeys both correctly Best Gaze: 0=Normal Visual: 0=No visual loss Facial: 1=Minor asymmetry (mild left sided facial droop) Motor Arm - Left: 1=Drift noted before 10 sec Motor Arm - Right: 0=No drift Motor Leg - Left: 0=No drift Motor Leg - Right: 0=No drift Limb Ataxia: 0=Absent Sensory: 0=Normal Best Language: 0=No aphasia Dysarthia: 0=Normal articulation Extinction & Inattention (Neglect): 0=Normal, no object Score: 2 rTPA Inclusion/Exclusion - Refusal of Treatment Patient Refused Treatment: No - Inclusion Criteria for Altepase Patient is 18 years or Older: Yes The Clinical Diagnosis of Ischemic Stroke That is Causing a Potentially Disabling Neurological Deficit: Yes Time of Onset is Well Established to be Less Than 270 Minute Before Treatment Would Begin: Yes Risk/Benefit Discussed With Patient/Family Member Present: No - Warning to TPA With Conditions Condition: Stroke Serevity Too Mild, Rapid Improvement Disposition - Disposition Disposition: HOSPITALIZED Disposition Time: 15:49 Condition: STABLE - Clinical Impression Clinical Impression: New onset atrial fibrillation, TIA (transient ischemic attack) Decision To Admit - Pt Status Changed To: Hospital Disposition Of: Inpatient - Admit Certification Admit to Inpatient:: After my assessment, the patient will require hospitalization for at least two midnights. This is because of the severity of symptoms shown, intensity of services needed, and/or the medical risk in this patient being treated as an outpatient. - InPatient: Physician Admission Certification: I certify that this patient requires 2 or more midnights of care for the following reason:: see notes - . Bed Request Type: Telemetry Admitting Physician: Brett Sheth Patient Diagnosis: New onset atrial fibrillation, TIA (transient ischemic attack)
[2017-09-16 14:42] LABS: LDL CHOLESTEROL 108 mg/dL (0-129)
[2017-09-16] MEDS ORDERED: Enoxaparin 60 mg Syringe SC STA (15:01)
--- NOTE | 2017-09-16 15:08 | CT ---
CTA BRAIN HISTORY: Code stroke TECHNIQUE: IV contrast dose: 100 ml Visipaque Radiation Dose - DLP: 473.51mGy-cm FINDINGS: Visualized thoracic aorta exhibits mild atherosclerotic plaque. . In addition, there is atherosclerotic plaque seen at the origin of the left subclavian artery. The common carotid arteries are patent. Some mild plaque changes are seen along both carotid bifurcations more so on the right however no evidence of significant stenosis so far as can be seen. . The distal internal carotid arteries a patent. Partially calcified plaque seen along cavernous carotid segments with mild narrowing. . The supraclinoid carotid arteries are patent. Both vertebral arteries are patent throughout right-sided which is slightly larger in caliber/more dominant than the left side. Basilar artery patent. The visualized the distal branches of the anterior middle and posterior cerebral arteries are patent and appear relatively symmetric. No evidence of large aneurysm nor vascular malformation. IMPRESSION: There are partially calcified atherosclerotic plaque changes seen along both carotid bifurcations and cavernous carotid segments with mild narrowing. No evidence of occlusion. There is no evidence of occlusion of proximal margins of the distal branches of the anterior middle and posterior cerebral arteries.
[2017-09-16] MEDS ORDERED: Enoxaparin 40 mg Syringe ONE (15:20)
--- NOTE | 2017-09-16 15:35 | RAD ---
HISTORY: Code Stroke COMPARISON: Portable chest 08/16/2017. FINDINGS: LUNGS: No active pulmonary disease. PLEURA: No significant pleural effusion identified, no pneumothorax apparent. CARDIOVASCULAR: Normal. OSSEOUS STRUCTURES: No significant abnormalities. VISUALIZED UPPER ABDOMEN: Normal. OTHER FINDINGS: None. IMPRESSION: Stable cardiomegaly. No pulmonary vascular derangement or active pulmonary disease appreciable bilaterally.
--- NOTE | 2017-09-16 16:26 | CP.PCM.HP ---
History of Present Illness - History of Present Illness History of Present Illness: PGY2 Resident - Medicine H&P CC: L sided weakness / facial droop at 1:15pm HPI: This 77 y/o female with PMHx of Afib, HTN, Systolic HF (HFrEF), hx LLE DVT , Hypothyroidism, Cholecystitis (chronic, pt refused surgery 08/2016) - is BIBA for evaluation of left sided facial droop since approx 1:15pm. As per family members at bedside, the patient was asymptomatic up until 12pm today when she was AAOx3, walking and talking without any issue. She was left alone at 12pm, and when her daughter in-law returned to her at approximately 1:15pm, she had difficulty arousing her and called 911. On arrival to the [facility] ED, the patient exhibited mild left facial droop and L Upper Extremity weakness. By 2: 30pm, after return from CT scan to ED, her facial droop and UE weakness resolved. She admits to stopping her followup at the [facility] clinic this past December 2016, and stopping all her medications in January 2017 after running out them. She reports that she did not want to take any more medicine. PMHx: Afib, HTN, Systolic HF (HFrEF), hx LLE DVT, Hypothyroidism, Cholecystitis (chronic, pt refused surgery 08/2016) PSHx: R hip replacement 2011 Meds: none since 01/2017 Allergies: NKDA FamHx: unknown SocHx: denies ETOH, tobacco, or illicit drug use; lives at home with family; unemployed Speaks Gujarati PMD: [place] (has not f/u since 01/2017) Review of Systems: -Gen: No fever, No chills, No headache, No lethargy, No weakness. -HEENT: No dizziness, No change in vision, No change in hearing, No sore throat , No dysphagia, No nasal congestion, No mucous. -Cardio: No chest pain, No palpitations, No lower extremity edema, No orthopnea. -Resp: No cough, No dyspnea, No hemoptysis, No wheezing, No pain on inspiration. -GI: No abdominal pain, No nausea/vomiting, No diarrhea/constipation, No hematochezia, No hematemesis. -: No dysuria, No urinary freq, No incontinence, No hematuria, No change in urinary stream. -MSK: No back pain, No muscle weakness, No radiating pain. -Skin: No itching, No rash, No lesions. -Neuro: No confusion, No numbness, No tingling, No focal weakness, No radicular pain, No syncope. -Psych: No anxiety, No depression, No H/I, No S/I, No hallucinations. Present on Admission - Present on Admission Any Indicators Present on Admission: Yes History of DVT/PE: Yes History of Uncontrolled Diabetes: No Past Patient History - Past Medical History & Family History Past Medical History?: No - Past Social History Smoking Status: Never Smoked - CARDIAC Hx Hypertension: Yes - MUSCULOSKELETAL/RHEUMATOLOGICAL Hx Falls: Yes (FROM PREVIOUS CHART) - PSYCHIATRIC Hx Substance Use: No - SURGICAL HISTORY Hx Orthopedic Surgery: Yes (RT hip) - ANESTHESIA Hx Anesthesia: Yes Hx Anesthesia Reactions: No Meds Allergies/Adverse Reactions: Allergies Allergy/AdvReac Type Severity Reaction Status Date / Time No Known Allergies Allergy Verified 08/16/17 17:24 Physical Exam - Constitutional Appears: Non-toxic, No Acute Distress - Head Exam Head Exam: ATRAUMATIC, NORMAL INSPECTION - Eye Exam Eye Exam: EOMI, Normal appearance Pupil Exam: NORMAL ACCOMODATION - ENT Exam ENT Exam: Mucous Membranes Moist - Neck Exam Neck exam: Negative for: Lymphadenopathy - Respiratory Exam Respiratory Exam: Clear to Auscultation Bilateral, NORMAL BREATHING PATTERN. absent: Decreased Breath Sounds, Rales, Rhonchi, Wheezes - Cardiovascular Exam Cardiovascular Exam: REGULAR RHYTHM, +S1, +S2. absent: Systolic Murmur - GI/Abdominal Exam GI & Abdominal Exam: Normal Bowel Sounds, Soft. absent: Guarding, Rigid, Tenderness - Extremities Exam Extremities exam: Positive for: normal capillary refill, normal inspection. Negative for: pedal edema, tenderness - Back Exam Back exam: NORMAL INSPECTION. absent: CVA tenderness (L), CVA tenderness (R) - Neurological Exam Neurological exam: Abnormal Gait (R hip replacement 2011), Alert, CN II-XII Intact, Oriented x3, Reflexes Normal Additional comments: no facial droop appreciated. signs of TIA resolved in ED - Psychiatric Exam Psychiatric exam: Normal Affect, Normal Mood - Skin Skin Exam: Dry, Intact, Normal Color, Warm Results - Vital Signs Recent Vital Signs: Last Vital Signs Temp 97.5 F L 09/16/17 14:28 Pulse 88 09/16/17 14:45 Resp 16 09/16/17 14:45 BP 87/63 L 09/16/17 14:45 Pulse Ox 100 09/16/17 14:57 - Labs Result Diagrams: 09/16/17 14:10 09/16/17 14:10 Labs: Laboratory Results - last 24 hr 09/16/17 09/16/17 09/16/17 13:57 14:10 14:10 WBC 6.5 RBC 3.99 Hgb 12.8 D Hct 38.0 MCV 95.1 D MCH 32.2 H MCHC 33.8 RDW 15.7 H Plt Count 240 MPV 8.9 Neut % (Auto) 56.5 Lymph % (Auto) 33.0 [place] % (Auto) 9.5 Eos % (Auto) 0.5 Baso % (Auto) 0.5 Neut # (Auto) 3.7 Lymph # (Auto) 2.2 [place] # (Auto) 0.6 Eos # (Auto) 0.0 Baso # (Auto) 0.0 PT 11.3 INR 1.0 APTT 30 Sodium Potassium Chloride Carbon Dioxide Anion Gap BUN Creatinine Est GFR ( Amer) Est GFR (Non-Af Amer) POC Glucose (mg/dL) 157 H Random Glucose Hemoglobin A1c Calcium Total Bilirubin AST ALT Alkaline Phosphatase Troponin I Total Protein Albumin Globulin Albumin/Globulin Ratio Triglycerides Cholesterol LDL Cholesterol Direct HDL Cholesterol Blood Type Antibody Screen 09/16/17 09/16/17 09/16/17 14:10 14:10 14:10 WBC RBC Hgb Hct MCV MCH MCHC RDW Plt Count MPV Neut % (Auto) Lymph % (Auto) [place] % (Auto) Eos % (Auto) Baso % (Auto) Neut # (Auto) Lymph # (Auto) [place] # (Auto) Eos # (Auto) Baso # (Auto) PT INR APTT Sodium 145 Potassium 4.2 Chloride 105 Carbon Dioxide 26 Anion Gap 18 BUN 21 H Creatinine 1.1 Est GFR ( Amer) 58 Est GFR (Non-Af Amer) 48 POC Glucose (mg/dL) Random Glucose 176 H Hemoglobin A1c 5.9 Calcium 9.6 Total Bilirubin 1.0 AST 25 ALT 19 Alkaline Phosphatase 110 Troponin I < 0.0120 Total Protein 7.9 Albumin 4.1 Globulin 3.8 Albumin/Globulin Ratio 1.1 Triglycerides 76 D Cholesterol 195 LDL Cholesterol Direct 108 HDL Cholesterol 57 Blood Type O POSITIVE Antibody Screen Negative Assessment & Plan - Assessment and Plan (Free Text) Assessment: TIA (Transient Ischemic Attack) * Code stroke called * Minor stroke with L facial droop - 2 points, resolved soon after presentation in ED * Neuro consult, Dr. Crawford, f/u recs (saw pt in ED, sx's completely resolved) * HAS-BLED = 4pts, high risk * [id number] = 7pt, 11.2% * ASA 81mg PO qD, received ASA 325mg once in ED * Crestor 10mg PO qD * Lipid panel - WNL, see EMR * CTA 09/16- partially calcified plaques at b/l carotid bifurcation; no occlusion , see full report * Head CT w/o contrast 09/16 - negative * f/u MRI brain + MRA head/neck (w/o contrast) Hx Atrial Fibrillation * Patient noted to be in AFib upon presentation to ED * Cardiac consult, Dr. Alejandre, f/u recs * Lovenox 65mg SC q12 (received Lovenox 70mg SC once in ED) * Hold coumadin 5mg PO qD (pt stopped taking 01/2017, lost medical f/u with PMD) * Hold diltiazem 30mg PO TID (pt stopped taking 01/2017, lost medical f/u with PMD) * HR regular, avoid CaCh-Yomaira in setting of reduced EF. * CXR 09/16 - cardiomegally, otherwise negative. see full report * f/u Echo -> if no valvular abnormalities, switch Lovenox to Eliquis Hx Systolic HF (HFrEF) * Cardiac consult, Dr. Aeljandre, f/u recs * last Echo 08/24/16 - EF 40% with mild MR and flattened septum, see full report * f/u ECHO 09/17 * Strict I/O * Daily weights * Lasix 20mg PO q24H - 7am (hold for SBP < 100) * Zestril 5mg PO q24H - 7pm Hypothyroidism * f/u TSH/ free T4 - restart synthroid as needed * hold home Synthroid 50mcg qd (pt stopped taking 01/2017, lost medical f/u with PMD) Hx Left Lower Extremity DVT * no LE edema, no pain * f/u b/l LE venous duplex Chronic Cholecystitis * Pt declined surgical intervention last admission 08/2016 (w/ Dr. Lazcano) * will monitor Prophylaxis * no GI proph indicated * Lovenox 65mg SC q12 * heart healthy diet, vegetarian, 2g Na Case discussed with Dr. Emigdio Irizarry - Date & Time Date: 09/16/17 Time: 16:26
[2017-09-16 18:18] LABS: SQUAMOUS EPITHIAL 1 /hpf (0-5); URINE BILIRUBIN NEGATIVE (NEGATIVE); URINE BLOOD 1+ (NEGATIVE); URINE CLARITY Clear (Clear); URINE COLOR Straw (YELLOW); URINE GLUCOSE (UA) NORMAL (Normal); URINE LEUKOCYTE ESTERASE TRACE Leu/uL (Negative); URINE PROTEIN NEGATIVE (NEGATIVE); URINE UROBILINOGEN NORMAL mg/dL (0.2-1.0)
--- NOTE | 2017-09-16 19:27 | CP.PCM.CON ---
History of Present Illness - History of Present Illness History of Present Illness: 77 yr old woman, [place] speaking, with pmh of being diagnosed with atrial fibrillation on coumadin in the past, who was seen by family walking to the lobby of the building, at 12 noon. She was then seen at 1:15 ad ws unresponsive, with left sided facial droop, and left upper extremity weakness. I was called for code stroke, and ct head and cta was done but her symptoms completely resolved so she was not a TPA candidate. Normally patient is ambulatory and quite functional. She was seen in [facility] in 2017, and ran out of medications and never replaced them. Denies headache, chest pain, diaphoresis, or weakness. She has never had prior spells. PMH/PSH: PMHx of Afib, HTN, Systolic HF (HFrEF), hx LLE DVT, Hypothyroidism, Cholecystitis (chronic, pt refused surgery 08/2016) FH/SH: lives with family. [place]jur[place] speaking. All: nkda. on exam: Normal neurological examination. Gait normal. No deficits. Past Patient History - Past Medical History & Family History Past Medical History?: No - Past Social History Smoking Status: Never Smoked - CARDIAC Hx Hypertension: Yes - MUSCULOSKELETAL/RHEUMATOLOGICAL Hx Falls: Yes (FROM PREVIOUS CHART) - PSYCHIATRIC Hx Substance Use: No - SURGICAL HISTORY Hx Orthopedic Surgery: Yes (RT hip) - ANESTHESIA Hx Anesthesia: Yes Hx Anesthesia Reactions: No Meds Allergies/Adverse Reactions: Allergies Allergy/AdvReac Type Severity Reaction Status Date / Time No Known Allergies Allergy Verified 08/16/17 17:24 Results - Vital Signs Recent Vital Signs: Last Vital Signs Temp 97.5 F L 09/16/17 14:28 Pulse 88 09/16/17 14:45 Resp 16 09/16/17 14:45 BP 87/63 L 09/16/17 14:45 Pulse Ox 100 09/16/17 14:57 - Labs Result Diagrams: 09/16/17 14:10 09/16/17 14:10 Labs: Laboratory Results - last 24 hr 09/16/17 09/16/17 09/16/17 13:57 14:10 14:10 WBC 6.5 RBC 3.99 Hgb 12.8 D Hct 38.0 MCV 95.1 D MCH 32.2 H MCHC 33.8 RDW 15.7 H Plt Count 240 MPV 8.9 Neut % (Auto) 56.5 Lymph % (Auto) 33.0 [place] % (Auto) 9.5 Eos % (Auto) 0.5 Baso % (Auto) 0.5 Neut # (Auto) 3.7 Lymph # (Auto) 2.2 [place] # (Auto) 0.6 Eos # (Auto) 0.0 Baso # (Auto) 0.0 PT 11.3 INR 1.0 APTT 30 Sodium Potassium Chloride Carbon Dioxide Anion Gap BUN Creatinine Est GFR ( Amer) Est GFR (Non-Af Amer) POC Glucose (mg/dL) 157 H Random Glucose Hemoglobin A1c Calcium Total Bilirubin AST ALT Alkaline Phosphatase Troponin I Total Protein Albumin Globulin Albumin/Globulin Ratio Triglycerides Cholesterol LDL Cholesterol Direct HDL Cholesterol Blood Type Antibody Screen 09/16/17 09/16/17 09/16/17 14:10 14:10 14:10 WBC RBC Hgb Hct MCV MCH MCHC RDW Plt Count MPV Neut % (Auto) Lymph % (Auto) [place] % (Auto) Eos % (Auto) Baso % (Auto) Neut # (Auto) Lymph # (Auto) [place] # (Auto) Eos # (Auto) Baso # (Auto) PT INR APTT Sodium 145 Potassium 4.2 Chloride 105 Carbon Dioxide 26 Anion Gap 18 BUN 21 H Creatinine 1.1 Est GFR ( Amer) 58 Est GFR (Non-Af Amer) 48 POC Glucose (mg/dL) Random Glucose 176 H Hemoglobin A1c 5.9 Calcium 9.6 Total Bilirubin 1.0 AST 25 ALT 19 Alkaline Phosphatase 110 Troponin I < 0.0120 Total Protein 7.9 Albumin 4.1 Globulin 3.8 Albumin/Globulin Ratio 1.1 Triglycerides 76 D Cholesterol 195 LDL Cholesterol Direct 108 HDL Cholesterol 57 Blood Type O POSITIVE Antibody Screen Negative - Imaging and Cardiology CT scan - head Status: Image reviewed by me, Report reviewed by me (ct head normal. CTA: minimal atherosclerosis. ) Assessment & Plan - Assessment and Plan (Free Text) Assessment: 77 yr old woman with TIA, wtih normal neurological exam who has a history of afib and needs stroke workup. Plan: 1. MRI Brain without rose 2. Patietn will start eloquiss, 3. ECHO 4. PT/St 5. Lipid profile. 6. Admit to telemetry 7. Neuro checks q shift Thank you Dr. case
[2017-09-17] MEDS: Enoxaparin 60 mg Syringe SC SCH ×2 (03:20→15:14)
[2017-09-17 07:01] LABS: BASO % 0.4 % (0.0-2.0); EOS # 0.1 K/uL (0.0-0.7); EOS % 1.2 % (0.0-4.0); HEMOGLOBIN 11.6 g/dL (11.0-16.0); LYMPH # 1.2 K/uL (1.0-4.3); LYMPH % 14.6 % (20.0-40.0); MEAN CELL VOLUME 94.1 fL (81.0-99.0); MEAN CORPUSCULAR HEMOGLOBIN 31.9 pg (27.0-31.0); MEAN CORPUSCULAR HGB CONC 33.9 g/dL (33.0-37.0); MONO % 11.7 % (0.0-10.0); NEUT # 5.9 K/uL (1.8-7.0); NEUT % 72.1 % (50.0-75.0); RBC 3.65 Mil/uL (3.80-5.20); RED CELL DISTRIBUTION WIDTH 15.4 % (11.5-14.5); WHITE BLOOD COUNT 8.2 K/uL (4.8-10.8)
--- NOTE | 2017-09-17 07:23 | CP.PCM.PN ---
<KarstenMadison - Last Filed: 09/17/17 16:15> Subjective - Date & Time of Evaluation Date of Evaluation: 09/17/17 Time of Evaluation: 16:15 - Subjective Subjective: Progress note for Juan C Patient seen and examined at bedside. No acute events overnight. Per daughter in law and patient, she is feeling better. Patient denies facial weakness, numbness, tingling, nausea, vomiting, diarrhea. patient went for XRAy, echo, and MRI. Objective - Vital Signs/Intake and Output Vital Signs (last 24 hours): Temp Pulse Resp BP Pulse Ox 97.8 F 87 20 129/79 98 09/16/17 23:05 09/16/17 23:05 09/16/17 23:05 09/16/17 23:05 09/16/17 23:05 Intake and Output: 09/17/17 09/17/17 06:59 18:59 Intake Total 240 Balance 240 - Medications Medications: Current Medications Aspirin (Aspirin Chewable) 81 mg PO DAILY [facility] Enoxaparin Sodium (Lovenox) 65 mg SC Q12H [facility] Last Admin: 09/17/17 03:20 Dose: 65 mg Furosemide (Lasix) 20 mg PO Q24H [facility] Lisinopril (Zestril) 5 mg PO Q24H [facility] Last Admin: 09/16/17 18:52 Dose: 5 mg Rosuvastatin Calcium (Crestor) 10 mg PO HS [facility] Last Admin: 09/16/17 21:47 Dose: 10 mg - Labs Labs: 09/17/17 06:49 09/16/17 14:10 PT 11.3 SECONDS (9.7-12.2) 09/16/17 14:10 INR 1.0 09/16/17 14:10 APTT 30 SECONDS (21-34) 09/16/17 14:10 - Additional Findings Additional findings: - Constitutional Appears: Non-toxic, No Acute Distress - Head Exam Head Exam: ATRAUMATIC, NORMAL INSPECTION - Eye Exam Eye Exam: EOMI, Normal appearance Pupil Exam: NORMAL ACCOMODATION - ENT Exam ENT Exam: Mucous Membranes Moist - Neck Exam Neck exam: Negative for: Lymphadenopathy - Respiratory Exam Respiratory Exam: Clear to Auscultation Bilateral, NORMAL BREATHING PATTERN. absent: Decreased Breath Sounds, Rales, Rhonchi, Wheezes - Cardiovascular Exam Cardiovascular Exam: REGULAR RHYTHM, +S1, +S2. absent: Systolic Murmur - GI/Abdominal Exam GI & Abdominal Exam: Normal Bowel Sounds, Soft. absent: Guarding, Rigid, Tenderness - Extremities Exam Extremities exam: Positive for: normal capillary refill, normal inspection. Negative for: pedal edema, tenderness - Back Exam Back exam: NORMAL INSPECTION. absent: CVA tenderness (L), CVA tenderness (R) - Neurological Exam Neurological exam: Abnormal Gait (R hip replacement 2011), Alert, CN II-XII Intact, Oriented x3, Reflexes Normal Additional comments: no facial droop appreciated. signs of TIA resolved in ED - Psychiatric Exam Psychiatric exam: Normal Affect, Normal Mood - Skin Skin Exam: Dry, Intact, Normal Color, Warm Assessment and Plan - Assessment and Plan (Free Text) Assessment: 77 yr old woman with TIA, wtih normal neurological exam who has a history of atrial fibrillation and needs stroke workup. Plan: f/u MRI Brain without gadollinium Patient to start on eliquis f/u ECHO f/u lipid panel f/u coag TIA (Transient Ischemic Attack) Code stroke called Minor stroke with L facial droop - 2 points, resolved soon after presentation in ED Neuro consult, Dr. Crawford (saw pt in ED, sx's completely resolved) HAS-BLED = 4pts, high risk [id number] = 7pt, 11.2% ASA 81mg PO qD, received ASA 325mg once in ED Crestor 10mg PO qD Lipid panel - WNL, see EMR 09/16 CT head: no evidence of infarct. no intracranial hemorrhage 09/16 CTA head: partially calcified atherosclerotic plaque changes seen along bilateral carotid bifurcations and cavernous carotid segments with mild narrowing. No evidence of occlusion of proximal margins of distal branches of anterior, middle and posterior cerebral arteries. lumbar spine multilevel degenerative changes. grade 1 retrolisthesis of L3 on L4, Grade 1 anterolisthesis of L4 on L5 Patient has MRI ordered but history of right hip surgery. Lumbar spine xray and hip pelvis xray ordered hip/pelvis xray: right hip arthroplasty f/u MRI brain + MRA head/neck (w/o contrast) Hx Atrial Fibrillation Patient noted to be in AFib upon presentation to ED Cardiac consult, Dr. Alejandre Lovenox 65mg SC q12 (received Lovenox 70mg SC once in ED) Hold coumadin 5mg PO qD (pt stopped taking 01/2017, lost medical f/u with PMD) Hold diltiazem 30mg PO TID (pt stopped taking 01/2017, lost medical f/u with PMD) will resume diltiazem if necessary HR regular, avoid CaCh-Yomaira in setting of reduced EF. CXR 09/16 - cardiomegally, otherwise negative. see full report f/u Echo -> if no valvular abnormalities, switch Lovenox to coumadin coumadin 5mg PO Q ONCE tonight AM INR daily. INR goal of 2-3 Hx Systolic HF (HFrEF) Cardiac consult, Dr. Alejandre CXR: cardiomegaly. no pulmonary vascular derrangement or active pulmonary disease. last Echo 08/24/16 - EF 40% with mild MR and flattened septum, see full report f/u ECHO 09/17 follow up final read. unofficial read shows no systolic dysfunction Strict I/O Daily weights Lasix 20mg PO q24H - 7am (hold for SBP < 100) Zestril 5mg PO q24H - 7pm Hypothyroidism f/u TSH/ free T4 - restart synthroid as needed hold home Synthroid 50mcg qd (pt stopped taking 01/2017, lost medical f/u with PMD) Hx Left Lower Extremity DVT no LE edema, no pain bilateral LE venous duplex: negative Chronic Cholecystitis Patient declined surgical intervention last admission 08/2016 (w/ Dr. Lazcano) will monitor Prophylaxis no GI prophylaxis indicated Lovenox 65mg SC q12 heart healthy diet, vegetarian, 2g Na Case discussed with Dr. Emigdio Irizarry <Ze Irizarry - Last Filed: 09/17/17 19:47> Objective - Vital Signs/Intake and Output Vital Signs (last 24 hours): Temp Pulse Resp BP Pulse Ox 99.0 F 84 20 152/68 H 100 09/17/17 15:00 09/17/17 16:00 09/17/17 15:00 09/17/17 15:00 09/17/17 15:00 - Medications Medications: Current Medications Aspirin (Aspirin Chewable) 81 mg PO DAILY [facility] Last Admin: 09/17/17 11:00 Dose: 81 mg Enoxaparin Sodium (Lovenox) 65 mg SC Q12H [facility] Last Admin: 09/17/17 15:14 Dose: 65 mg Furosemide (Lasix) 20 mg PO Q24H [facility] Last Admin: 09/17/17 08:33 Dose: Not Given Lisinopril (Zestril) 5 mg PO Q24H [facility] Last Admin: 09/17/17 18:14 Dose: 5 mg Rosuvastatin Calcium (Crestor) 10 mg PO HS [facility] Last Admin: 09/16/17 21:47 Dose: 10 mg - Labs Labs: 09/17/17 06:49 09/17/17 06:49 PT 11.3 SECONDS (9.7-12.2) 09/16/17 14:10 INR 1.0 09/16/17 14:10 APTT 30 SECONDS (21-34) 09/16/17 14:10 Attending/Attestation - Attestation I have personally seen and examined this patient.: Yes I have fully participated in the care of the patient.: Yes I have reviewed all pertinent clinical information, including history, physical exam and plan: Yes Notes (Text): 09/17/17 19:42 Patient was seen and examined at 4:45 PM. Care of this patient was discussed with resident before my exam during rounds. Also on ROS: NO complaints upon FULL ROS Also on Exam: Cardiology: Irregularly irregular Patient is on therapeutic Lovenox and will start to bridge to Coumadin tonight starting with 5 mg. Once INR approaches 2 we will discharge patient. Extensive conversation with patient concerning her diagnosises and the need for appropriate follow up and taking of medications as instructed. Patient stated that "my outcome has already written before I was born". She wanted to go home but I again explained to her the need to make sure that the INR was approaching therapeutic level. Spoke at length with Son Geo via phone [phone] and explained to him patient's diagnosises, the need for appropriate follow up through our clinic, the taking of medications, and the need for INR to approaching therapeutic level prior to discharging patient. Ze Irizarry D.O.
[2017-09-17 07:30] LABS: ALB/GLOB RATIO 0.9 (1.0-2.1); ALBUMIN 3.3 g/dL (3.5-5.0); ALT/SGPT 16 U/L (9-52); AST/SGOT 21 U/L (14-36); BLOOD UREA NITROGEN 18 mg/dL (7-17); CALCIUM 9.1 mg/dl (8.6-10.4); GFR AFRICAN-AMERICAN > 60; GFR NON-AFRICAN AMERICAN > 60
--- NOTE | 2017-09-17 08:54 | CP.PCM.PN ---
Subjective - Date & Time of Evaluation Date of Evaluation: 09/17/17 Time of Evaluation: 08:51 - Subjective Subjective: Ms. Hall was seen and examined at the bedside. She is alert, oriented in all spheres. She speaks mainly Jeff utilize roving department end finder.She denies any headache, dizziness, weakness, blurred vision. She is able to follow simple commands. She complains of right leg weakness,according to the granddaughter its an intermittent issue at home.There was no untoward events overnight. Objective - Vital Signs/Intake and Output Vital Signs (last 24 hours): Temp Pulse Resp BP Pulse Ox 98.2 F 84 20 123/78 100 09/17/17 07:00 09/17/17 07:00 09/17/17 07:00 09/17/17 07:00 09/17/17 07:00 Intake and Output: 09/17/17 09/17/17 06:59 18:59 Intake Total 240 Balance 240 - Medications Medications: Current Medications Aspirin (Aspirin Chewable) 81 mg PO DAILY [facility] Enoxaparin Sodium (Lovenox) 65 mg SC Q12H [facility] Last Admin: 09/17/17 03:20 Dose: 65 mg Furosemide (Lasix) 20 mg PO Q24H [facility] Last Admin: 09/17/17 08:33 Dose: Not Given Lisinopril (Zestril) 5 mg PO Q24H [facility] Last Admin: 09/16/17 18:52 Dose: 5 mg Rosuvastatin Calcium (Crestor) 10 mg PO HS [facility] Last Admin: 09/16/17 21:47 Dose: 10 mg - Labs Labs: 09/17/17 06:49 09/17/17 06:49 PT 11.3 SECONDS (9.7-12.2) 09/16/17 14:10 INR 1.0 09/16/17 14:10 APTT 30 SECONDS (21-34) 09/16/17 14:10 - Constitutional Appears: No Acute Distress - Head Exam Head Exam: NORMAL INSPECTION - Neurological Exam Neurological Exam: Alert, Awake, Oriented x3 Neuro motor strength exam: Left Upper Extremity: 4, Right Upper Extremity: 4, Left Lower Extremity: 4, Right Lower Extremity: 4 Additional comments: Alert, oriented able to follow simple commands. Sensation is intact. Assessment and Plan (1) TIA (transient ischemic attack) Assessment & Plan: Case discussed with Dr. Crawford, continue all current medical, physical, occupational, and speech therapies. Patient has history of hip surgery, butfamily is unable to verify material or type, will do hip x-ray prior to MRI. Pending MRI of the brain, echocardiogram. Status: Acute
--- NOTE | 2017-09-17 10:02 | RAD ---
PROCEDURE: Right Hip Radiographs. HISTORY: MRI clearance, to verify viola metals COMPARISON: None. FINDINGS: BONES: Prior right hip arthroplasty. No periprosthetic lucency. No acute fracture. JOINTS: Right hip arthroplasty. SOFT TISSUES: Normal. OTHER FINDINGS: Excreted intravenous contrast in the urinary bladder. IMPRESSION: Prior right hip arthroplasty. No demonstrated acute fracture.
--- NOTE | 2017-09-17 10:06 | RAD ---
PROCEDURE: Radiographs of the Lumbar Spine. HISTORY: mRI clearance to check for metal COMPARISON: No prior. FINDINGS: BONES: Normal alignment. Grade 1 retrolisthesis of L3 on L4. Grade 1 anterolisthesis of L4 on L5. No acute fracture. Prior right hip arthroplasty. DISC SPACES: Multilevel disc space narrowing. OTHER FINDINGS: Excreted intravenous contrast in the urinary bladder. IMPRESSION: Multilevel degenerative changes. Grade 1 retrolisthesis of L3 on L4. Grade 1 anterolisthesis of L4 on L5. Prior right hip arthroplasty.
--- NOTE | 2017-09-17 11:23 | VASCLAB ---
PROCEDURE: Lower Extremity Venous Duplex Exam. HISTORY: hx LE DVT, TIA PRIORS: Last exam 08/25/2016, abnormal. TECHNIQUE: Bilateral common femoral, femoral, popliteal and posterior tibial, peroneal and great saphenous veins were evaluated. Flow was assessed with color Doppler, compressibility, assessment of phasic flow and augmentation response. Report prepared by KENAN Crystal FINDINGS: RIGHT: 1. Common Femoral Vein: 1.1. Compressibility - Fully compressible: Thrombus - None : Flow - Phasic: Augmentation -Normal: Reflux - None. 2. Femoral Vein: 2.1. Compressibility - Fully compressible: Thrombus - None : Flow - Phasic: Augmentation -Normal: Reflux - None. 3. Popliteal Vein: 3.1. Compressibility - Fully compressible: Thrombus - None : Flow - Phasic: Augmentation -Normal: Reflux - None. 4. Posterior Tibial Vein: 4.1. Compressibility - Fully compressible: Thrombus - None: Flow - Phasic: Augmentation -Normal: Reflux - None. 5. Peroneal Vein: 5.1. Compressibility - Fully compressible: Thrombus - None: Flow - Phasic: Augmentation -Normal: Reflux - None. 6. Great Saphenous Vein: 6.1. Compressibility - Fully compressible: Thrombus - None: Flow - Phasic: Augmentation - Normal: Reflux - None. LEFT: 1. Common Femoral Vein: 1.1. Compressibility - Fully compressible: Thrombus - None: Flow - Phasic: Augmentation -Normal: Reflux - None. 2. Femoral Vein: 2.1. Compressibility - Fully compressible: Thrombus - None: Flow - Phasic: Augmentation -Normal: Reflux - None. 3. Popliteal Vein: 3.1. Compressibility - Fully compressible: Thrombus - None : Flow - Phasic: Augmentation -Normal: Reflux - None. 4. Posterior Tibial Vein: 4.1. Compressibility - Fully compressible: Thrombus - None: Flow - Phasic: Augmentation -Normal: Reflux - None. 5. Peroneal Vein: 5.1. Compressibility - Fully compressible: Thrombus - None: Flow - Phasic: Augmentation -Normal: Reflux - None. 6. Great Saphenous Vein: 6.1. Compressibility - Fully compressible: Thrombus - None: Flow - Phasic: Augmentation - Normal: Reflux - None. OTHER FINDINGS: Right: None significant. Left: None significant. IMPRESSION: Right: No evidence of deep or superficial vein thrombosis of the right lower extremity. Normal valve function noted of the right side. Left: No evidence of deep or superficial vein thrombosis of the left lower extremity. Normal valve function noted of the left side.
--- NOTE | 2017-09-17 17:52 | MRI ---
PROCEDURE: MRI BRAIN WITHOUT CONTRAST HISTORY: TIA COMPARISON: Unenhanced head CT 09/16/2017. TECHNIQUE: Multiplanar, multisequence MR images of the brain were obtained without intravenous contrast enhancement. FINDINGS: HEMORRHAGE: None DWI: No evidence of an acute or early subacute infarction. BRAIN PARENCHYMA: Corticomedullary differentiation is made maintained as well the sulcal and cisternal pattern. Mild diffuse cerebral atrophy chronic microangiopathy are identified. Further, likely tiny bithalamic chronic lacune is seen as well as the left greater the right basal ganglia. Chronic lacunes are also seen in the right samantha in the inferior left cerebellar hemisphere. VENTRICLES: Unremarkable. No hydrocephalus. CRANIUM: Unremarkable. ORBITS: Grossly unremarkable. PARANASAL SINUSES/MASTOIDS: Clear VASCULAR SYSTEM: Skull base flow voids intact. OTHER FINDINGS: None. IMPRESSION: No definite acute or subacute brain infarction appreciated. Age related neuro degenerative changes are identified as well as by thalamic and bilateral basal ganglia as well as left cerebellar chronic lacunes.
--- NOTE | 2017-09-17 18:04 | MRI ---
PROCEDURE: Magnetic Resonance Angiography Brain HISTORY: TIA COMPARISON: None available. TECHNIQUE: 3D time of flight MR angiography of the intracranial arteries was performed. Rotating maximum intensity projection images were generated. FINDINGS: INTERNAL CAROTID ARTERIES: Cavernous atherosclerosis seen related to the bilateral internal carotid arteries with [id number] stenoses identified at these segments. The remainder is unremarkable. The skull base, petrous, and supraclinoid segments are bilaterally widely patient. ANTERIOR CEREBRAL ARTERIES: Unremarkable. A1 and A2 segments are widely patent. Smaller distal branches unremarkable, as visualized. MIDDLE CEREBRAL ARTERIES: Unremarkable. M1 and M2 segments are widely patent. Perisylvian branches grossly symmetric. POSTERIOR CIRCULATION: Basilar Artery: Unremarkable. Distal Vertebral Arteries: Unremarkable. Posterior Cerebral Arteries: Unremarkable. Posterior Inferior Cerebellar Arteries: Unremarkable. ANEURYSM/ VASCULAR MALFORMATIONS: None. OTHER FINDINGS: None. IMPRESSION: [id number] stenosis at the cavernous ICA segments is seen symmetrically, on the basis of atherosclerotic changes the remainder the brain MRI otherwise unremarkable.
--- NOTE | 2017-09-17 18:06 | MRI ---
PROCEDURE: MR Angiography of the neck without contrast HISTORY: TIA COMPARISON: None available. TECHNIQUE: 3D [id number] angiography of the neck was performed. Rotating maximum intensity projection images of the cervical carotid and vertebral arteries were generated. The origins of the common carotid arteries were not visualized, which is a limitation inherent to the non-contrast time of flight technique. FINDINGS: RIGHT CAROTID ARTERIES: Common Carotid Artery: Normal. Carotid Bifurcation: Normal. Internal Carotid Artery:Normal. External Carotid Artery (proximal branches): Normal. LEFT CAROTID ARTERIES: Common Carotid Artery: Normal. Carotid Bifurcation: Normal. Internal Carotid Artery:Normal. External Carotid Artery (proximal branches): Normal. VERTEBRAL ARTERIES: Mildly ectatic but widely patent bilateral cervical vertebral arteries are identified without significant stenosis. OTHER FINDINGS: None. IMPRESSION: Normal MR Angiography of the neck.
--- NOTE | 2017-09-18 01:45 | CON ---
DATE: 09/17/2017 CARDIOLOGY CONSULT LOCATION: Room 661, bed B. Requested by the hospitalist group. REASON FOR REQUEST: Requested to see this 77 years old Adventism female due to atrial fibrillation. HISTORY OF PRESENT ILLNESS: This nice lady has a long history of hypertension as well as atrial fibrillation. She was taking multiple medications in the past and she opted to stop them on her own. Yesterday, the family found her in the lobby of a building slightly sleepy and when she woke up, apparently there was some drooping in the left side of the face. She was taken immediately to the emergency room. On arrival there, she was totally conscious oriented with no drooping whatsoever. Nevertheless, in view of these findings and evidence of chronic atrial fibrillation, a code stroke evaluation was initiated. CAT scan of the head failed to disclose any intracranial hemorrhage or early infarct; however, neurological evaluation continues to evolve in here. From the cardiological view point, the issue here is that she has had atrial fibrillation for long, long time and in the past, she was taking multiple medications including warfarin, which she stopped long time ago. Since arrival here, she was placed on enoxaparin subcutaneously. She is presently feeling very well. She was eating lunch when I visited her and her daughter at the bedside was translating for us. She denies any loss of consciousness in the past, no drooping, no weakness etc, except for the right leg since she had surgery in [place] presumably they did a hip replacement. ALLERGIES: SHE CLAIMS TO HAVE NO KNOWN ALLERGIES TO ANY MEDICATIONS. SOCIAL HISTORY: She does not drink alcohol or smoke. REVIEW OF SYSTEMS: From the cardiological view point, she denies any exertional chest discomfort or at rest. No significant breathing difficulties at normal level and no dependant edema. Rest of the review of systems otherwise negative. PHYSICAL EXAMINATION: GENERAL: Reveals an elderly Adventism female, appears relatively well for her age, conversing quite well. VITAL SIGNS: Since arrival here have been stable, blood pressure has been quite stable in the range of 125/70 or so, continuous cardiac monitoring showing atrial fibrillation with moderate ventricular response, respiratory rate is unremarkable as well as the temperature. O2 saturation close to 100%. SKIN: Warm and dry. No evidence of any dependent edema. HEENT: Head, ears, nose, and throat basically unremarkable for age. NECK: Supple. I do not hear any bruits. LUNGS: Relatively clear to auscultation. CARDIOLOGIC: Heart sounds irregularly irregular. There is a systolic murmur along the left sternal border and at times perhaps the first heart sound is slightly accentuated and also there is a slight systolic murmur at the base. ABDOMEN: Grossly unremarkable at this point in time. I mentioned this because she has some history of some gallbladder disease and I read from the chart that she refused surgery not long ago. 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 At this point in time, appears relatively intact during my gross examination. COMPLEMENTARY DATA: From the cardiological view point, includes an electrocardiogram showing atrial fibrillation with moderate ventricular response. Chest x-ray, perhaps have some borderline increased but has poor inspiratory effort, this was a portable technique. CBC, comprehensive metabolic profile have nothing in spectacular at this point in time. I was looking for the BNP, no BNP. However, TSH at 4.6 towards the upper limit though remains normal, I mentioned this because I also read in the chart that she had some hypothyroidism or some history of it. I just took a look at the echocardiogram, I do not know who is going to read it, but the left ventricular systolic function appears to be preserved. The left atrium is rather enlarged, severely enlarged, especially adjusting for left atrial index. Right ventricle is under pressure, there is some mitral valve leaflets, in my humble opinion, appear slightly thickened and anterior mitral leaflet in some views moves with a hockey stick type of motion, there is also some mitral regurgitation, perhaps mild to moderate in some views, but I would say more mild than anything else. Tricuspid valve, there is some moderate tricuspid regurgitation with mildly elevated pulmonary pressures. Left atrial pressure appears to be elevated significantly. The aortic valve shows some slight calcification with mild to moderat aortic regurgitation. In essence, preserved left ventricular systolic function, diastolic dysfunction, severely enlarged left atrium and mitral valve leaflet thickened and problematic for me, I do not know if this is "forme fruste" mitral stenosis type, very mild or aborted mitral stenosis many years ago. IMPRESSION: 1. Chronic atrial fibrillation. 2. Questionable transient left face drooping yesterday, obviously we will never be able to rule out transient mini embolic episode. 3. Severely enlarged left atrial cavity and questionable forme fruste mitral stenosis, mild aortic regurgitation. 4. Hypertensive heart disease. PLAN: Presently, appears totally stable. I spoke with Dr. Ze Irizarry the hospitalist in the case. My preference for anticoagulants by large is to use vitamin K antagonist warfarin, this is an older drug that has been available forever, we know all the potential issues with warfarin and in this case, I have zero doubt that I will go with warfarin, until proven otherwise. The NOACs are easier for the patient, however, they have a main problem that is no "antidote" and they are rather, rather expensive and people stop taking them down the road. I will continue the antihypertensive medications. The left ventricular systolic function in my opinion appears to be at this point preserved and so for the atrial fibrillation just continue with rate control, using beta blockers such as carvedilol etc. Kirill Alejandre MD MTDAlejandra
[2017-09-18] MEDS: Enoxaparin 60 mg Syringe SC SCH ×2 (04:30→15:23)
--- NOTE | 2017-09-18 07:46 | CP.PCM.PN ---
Subjective - Date & Time of Evaluation Date of Evaluation: 09/18/17 Time of Evaluation: 07:44 - Subjective Subjective: Progress Note Patient seen and examined at bedside arranging things from her bag. Patient indicated that she has right hip and leg pain. Objective - Vital Signs/Intake and Output Vital Signs (last 24 hours): Temp Pulse Resp BP Pulse Ox 97.8 F 82 20 168/99 H 98 09/18/17 04:00 09/18/17 06:52 09/18/17 06:52 09/18/17 06:54 09/18/17 04:00 Intake and Output: 09/18/17 09/18/17 06:59 18:59 Intake Total 480 Balance 480 - Medications Medications: Current Medications Aspirin (Aspirin Chewable) 81 mg PO DAILY [facility] Last Admin: 09/17/17 11:00 Dose: 81 mg Enoxaparin Sodium (Lovenox) 65 mg SC Q12H [facility] Last Admin: 09/18/17 04:30 Dose: 65 mg Furosemide (Lasix) 20 mg PO Q24H [facility] Last Admin: 09/18/17 06:54 Dose: 20 mg Lisinopril (Zestril) 5 mg PO Q24H [facility] Last Admin: 09/17/17 18:14 Dose: 5 mg Rosuvastatin Calcium (Crestor) 10 mg PO HS [facility] Last Admin: 09/17/17 21:44 Dose: 10 mg - Labs Labs: 09/17/17 06:49 09/17/17 06:49 PT 11.3 SECONDS (9.7-12.2) 09/16/17 14:10 INR 1.0 09/16/17 14:10 APTT 30 SECONDS (21-34) 09/16/17 14:10 - Additional Findings Additional findings: - Constitutional Appears: Non-toxic, No Acute Distress - Head Exam Head Exam: ATRAUMATIC, NORMAL INSPECTION - Eye Exam Eye Exam: EOMI, Normal appearance Pupil Exam: NORMAL ACCOMODATION - ENT Exam ENT Exam: Mucous Membranes Moist - Neck Exam Neck exam: Negative for: Lymphadenopathy - Respiratory Exam Respiratory Exam: Clear to Auscultation Bilateral, NORMAL BREATHING PATTERN. absent: Decreased Breath Sounds, Rales, Rhonchi, Wheezes - Cardiovascular Exam Cardiovascular Exam: REGULAR RHYTHM, +S1, +S2. absent: Systolic Murmur - GI/Abdominal Exam GI & Abdominal Exam: Normal Bowel Sounds, Soft. absent: Guarding, Rigid, Tenderness - Extremities Exam Extremities exam: Positive for: normal capillary refill, normal inspection. tenderness to palpation along. Negative for: pedal edema, tenderness - Back Exam Back exam: NORMAL INSPECTION. absent: CVA tenderness (L), CVA tenderness (R) - Neurological Exam Neurological exam: Abnormal Gait (R hip replacement 2011), Alert, CN II-XII Intact, Oriented x3, Reflexes Normal Additional comments: no facial droop appreciated. signs of TIA resolved in ED - Psychiatric Exam Psychiatric exam: Normal Affect, Normal Mood - Skin Skin Exam: Dry, Intact, Normal Color, Warm Assessment and Plan - Assessment and Plan (Free Text) Assessment: 77 yr old woman with TIA, wtih normal neurological exam who has a history of atrial fibrillation. TIA (Transient Ischemic Attack) Code stroke called Minor stroke with L facial droop - 2 points, resolved soon after presentation in ED Neuro consult, Dr. Crawford (saw pt in ED, sx's completely resolved) HAS-BLED = 4pts, high risk [id number] = 7pt, 11.2% ASA 81mg PO qD, received ASA 325mg once in ED Crestor 10mg PO qD Lipid panel - WNL, see EMR 09/16 CT head: no evidence of infarct. no intracranial hemorrhage 09/16 CTA head: partially calcified atherosclerotic plaque changes seen along bilateral carotid bifurcations and cavernous carotid segments with mild narrowing. No evidence of occlusion of proximal margins of distal branches of anterior, middle and posterior cerebral arteries. lumbar spine multilevel degenerative changes. grade 1 retrolisthesis of L3 on L4, Grade 1 anterolisthesis of L4 on L5 Patient has MRI ordered but history of right hip surgery. Lumbar spine xray and hip pelvis xray ordered hip/pelvis xray: right hip arthroplasty f/u MRI brain + MRA head/neck (w/o contrast) Hx Atrial Fibrillation Patient noted to be in AFib upon presentation to ED Cardiac consult, Dr. Alejandre Lovenox 65mg SC q12 (received Lovenox 70mg SC once in ED) Hold coumadin 5mg PO qD (pt stopped taking 01/2017, lost medical f/u with PMD) Hold diltiazem 30mg PO TID (pt stopped taking 01/2017, lost medical f/u with PMD) will resume diltiazem if necessary HR regular, avoid CaCh-Yomaira in setting of reduced EF. CXR 09/16 - cardiomegally, otherwise negative. see full report f/u Echo -> if no valvular abnormalities, switch Lovenox to coumadin coumadin 5mg PO Q ONCE tonight AM INR daily. INR goal of 2-3 Hx Systolic HF (HFrEF) Cardiac consult, Dr. Alejandre CXR: cardiomegaly. no pulmonary vascular derrangement or active pulmonary disease. last Echo 08/24/16 - EF 40% with mild MR and flattened septum, see full report f/u ECHO 09/17 follow up final read. unofficial read shows no systolic dysfunction Strict I/O Daily weights Lasix 20mg PO q24H - 7am (hold for SBP < 100) Zestril 5mg PO q24H - 7pm hx Hypothyroidism, resolved Patient to discontinue synthroid (home medication until following up with PMD in the future) hold home Synthroid 50mcg qd (Patient stopped taking this medication in 2016 because she lost medical f/u with PMD) Hx Left Lower Extremity DVT no LE edema, no pain bilateral LE venous duplex: negative Chronic Cholecystitis Patient declined surgical intervention last admission 08/2016 (w/ Dr. Lazcano) will monitor Prophylaxis no GI prophylaxis indicated Lovenox 65mg SC q12, to be discontinued when INR comes to goal at 2-3 heart healthy diet, vegetarian, 2g Na Case discussed with Dr. Emigdio Shelley, DO PGY1
[2017-09-18 07:47] LABS: ALB/GLOB RATIO 1.1 (1.0-2.1); ALBUMIN 3.5 g/dL (3.5-5.0); ALT/SGPT 7 U/L (9-52); AST/SGOT 20 U/L (14-36); BLOOD UREA NITROGEN 14 mg/dL (7-17); CALCIUM 8.1 mg/dl (8.6-10.4); GFR AFRICAN-AMERICAN > 60; GFR NON-AFRICAN AMERICAN > 60
--- NOTE | 2017-09-18 08:40 | CP.PCM.PN ---
Subjective - Date & Time of Evaluation Date of Evaluation: 09/18/17 Time of Evaluation: 08:40 - Subjective Subjective: Ms. Hall was seen and examined at the bedside. She is alert, oriented in all spheres. 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 She is able to follow simple commands. MRI showed no acute infarction or hemorrhage. There was no untoward events overnight. Objective - Vital Signs/Intake and Output Vital Signs (last 24 hours): Temp Pulse Resp BP Pulse Ox 97.8 F 82 20 168/99 H 98 09/18/17 04:00 09/18/17 06:52 09/18/17 06:52 09/18/17 06:54 09/18/17 04:00 Intake and Output: 09/18/17 09/18/17 06:59 18:59 Intake Total 480 Balance 480 - Medications Medications: Current Medications Aspirin (Aspirin Chewable) 81 mg PO DAILY [facility] Last Admin: 09/17/17 11:00 Dose: 81 mg Enoxaparin Sodium (Lovenox) 65 mg SC Q12H [facility] Last Admin: 09/18/17 04:30 Dose: 65 mg Furosemide (Lasix) 20 mg PO Q24H [facility] Last Admin: 09/18/17 06:54 Dose: 20 mg Lisinopril (Zestril) 5 mg PO Q24H [facility] Last Admin: 09/17/17 18:14 Dose: 5 mg Rosuvastatin Calcium (Crestor) 10 mg PO HS [facility] Last Admin: 09/17/17 21:44 Dose: 10 mg - Labs Labs: 09/17/17 06:49 09/18/17 07:13 PT 11.3 SECONDS (9.7-12.2) 09/16/17 14:10 INR 1.0 09/16/17 14:10 APTT 30 SECONDS (21-34) 09/16/17 14:10 - Constitutional Appears: No Acute Distress - Head Exam Head Exam: NORMAL INSPECTION - Neurological Exam Neurological Exam: Alert, Awake, Oriented x3 Neuro motor strength exam: Left Upper Extremity: 5, Right Upper Extremity: 5, Left Lower Extremity: 5, Right Lower Extremity: 4 Additional comments: Neurological unchanged from previous examination. Assessment and Plan (1) TIA (transient ischemic attack) Assessment & Plan: Case discussed with Dr. Crawford, continue all current medical, physical, occupational, and speech therapies. Pending echocardiogram result which will determine which anticoagulant will be prescribed to the patient. Primary team will order anticoagulant. Status: Acute
[2017-09-18 12:02] LABS: INR 1.2; PROTHROMBIN TIME 13.2 SECONDS (9.7-12.2)
--- NOTE | 2017-09-18 12:24 | CARD ---
APPROVED REPORT EXAM: Two-dimensional and M-mode echocardiogram with Doppler and color Doppler. Other Information Quality : GoodRhythm : INDICATION CVA/TIA Pleural Effusion Atrial Fibrillation 2D DIMENSIONS IVSd0.7 (0.7-1.1cm)LVDd3.9 (3.9-5.9cm) PWd0.6 (0.7-1.1cm)LVDs2.2 (2.5-4.0cm) FS (%) 44.3 %LVEF (%)76.2 (>50%) M-Mode DIMENSIONS RVDd2.31 (2.1-3.2cm)Left Atrium (MM)4.50 (2.5-4.0cm) IVSd0.73 (0.7-1.1cm)Aortic Root2.49 (2.2-3.7cm) LVDd4.00 (4.0-5.6cm)Aortic Cusp Exc.1.60 (1.5-2.0cm) PWd0.71 (0.7-1.1cm)FS (%) 44 % LVDs2.24 (2.0-3.8cm)LVEF (%)76 (>50%) Aortic Valve AI P 1/2 [id number] Mitral Valve MV E [id number]/sMV [id number]/A ratio0.0 MVA (PHT)2.48cm2 TDI E/Lateral E'0.0E/Medial E'0.0 Tricuspid Valve TR Peak [id number] Peak [id number] LEFT VENTRICLE The left ventricle is normal size. There is normal left ventricular wall thickness. The left ventricular function is normal. The left ventricular ejection fraction is within the normal range. There is normal LV segmental wall motion. RIGHT VENTRICLE The right ventricle is normal size. ATRIA The left atrium is moderately dilated. AORTIC VALVE There is trace to mild aortic regurgitation. MITRAL VALVE Mitral regurgitation is trace to mild. TRICUSPID VALVE There is mild tricuspid regurgitation. <Conclusion> Normal LV systolic function. Dilated LA. Trace to mild MR. Trace to mild AR. Mild TR.
--- NOTE | 2017-09-18 23:10 | PN ---
DATE: 09/18/2017 SUBJECTIVE: Remains totally stable. Resting comfortably in her bed, almost flat. I asked a few questions and although she does not understand it well, she said okay; how you are feeling, okay. Review of the clinical findings in the chart here that she is doing quite well and stable. Presently, she is being anticoagulated with warfarin, which begun yesterday with a bridge with enoxaparin. PHYSICAL EXAMINATION: GENERAL: Alert and oriented in no distress. Resting very comfortably. VITAL SIGNS: Remain stable with chronic atrial fibrillation with the rate very well controlled in the 70s. Blood pressure anywhere between 113/70 to 105/69. Respiratory rate and O2 saturation unremarkable on room air. CARDIAC: On the cardiologic viewpoint, the jugular veins not distended at this moment. LUNGS: Totally clear to auscultation. HEART: Heart sounds irregularly irregular due to the chronic atrial fibrillation. Minimal systolic murmur. No thrills. ABDOMEN: Unremarkable. EXTREMITIES: Lower extremities, no edema. RAISER HELPER: Moving all extremities normally and well. LABORATORY DATA: Complementary data: The INR today is about 1.2, but the warfarin was just initiated yesterday, she is on enoxaparin just getting 65 mg subcu every 12 hours, which is 1 mg/kg twice a day. I took a look at the echocardiogram again today early this morning and I saw that Dr. Ignacio was reading echocardiograms, he was coming actually to read the echocardiograms. I did not speak with him directly about this echo, but earlier I had looked at the echocardiogram again and I had very little doubt that mitral valve has some stenotic component with a classical hockey stick type of movement, which is almost pathognomonic for mitral stenosis. This is very mildly forme fruste on the basis of prior rheumatic heart disease during childhood. Left atrium is really enlarged and so is the right atrium. The left ventricular function systolic morgan is unremarkable and when you look at the mitral valve area by pressure half time, it is about of a little over 2 sq cm, 2.5 or so, normal 4 to 6 sq cm, so I have very little doubt that she probably had some rheumatic heart disease during childhood with minimal borderline forme fruste mitral stenosis. She does have also some concomitant mitral regurgitation. ASSESSMENT: Chronic atrial fibrillation, most likely not yet proven otherwise secondary to some forme fruste mitral stenosis due to rheumatic heart disease during childhood. Normal left ventricular systolic function. Again, I discussed with Dr. Nico Irizarry yesterday, the only way that I would anticoagulate this lady is with the use of warfarin. I do know and I understand that the NOACs are much easier to use, but in this situation it would be in my humble opinion contraindicated. Kirill Alejandre MD MTDAlejandra
[2017-09-19] MEDS: Enoxaparin 60 mg Syringe SC SCH ×2 (04:02→21:07)
--- NOTE | 2017-09-19 08:08 | CP.PCM.PN ---
Subjective - Date & Time of Evaluation Date of Evaluation: 09/19/17 Time of Evaluation: 08:08 - Subjective Subjective: Ms. Hall was seen and examined at the bedside. She is alert, oriented in all spheres. She speaks mainly Jeff utilize social media developer. She denies any headache, dizziness, weakness, blurred vision. She is able to follow simple commands. There was no untoward events overnight. Objective - Vital Signs/Intake and Output Vital Signs (last 24 hours): Temp Pulse Resp BP Pulse Ox 97.6 F 54 L 18 116/61 97 09/19/17 07:25 09/19/17 07:25 09/19/17 07:25 09/19/17 07:25 09/19/17 07:25 Intake and Output: 09/19/17 09/19/17 06:59 18:59 Intake Total 240 Balance 240 - Medications Medications: Current Medications Aspirin (Aspirin Chewable) 81 mg PO DAILY [facility] Last Admin: 09/18/17 09:38 Dose: 81 mg Enoxaparin Sodium (Lovenox) 65 mg SC Q12H [facility] Last Admin: 09/19/17 04:02 Dose: 65 mg Furosemide (Lasix) 20 mg PO Q24H [facility] Last Admin: 09/19/17 06:24 Dose: 20 mg Lisinopril (Zestril) 5 mg PO Q24H [facility] Last Admin: 09/18/17 18:48 Dose: 5 mg Metoprolol Tartrate (Lopressor) 12.5 mg PO BIDBS [facility] Last Admin: 09/18/17 17:23 Dose: 12.5 mg Rosuvastatin Calcium (Crestor) 10 mg PO HS [facility] Last Admin: 09/18/17 21:32 Dose: 10 mg - Labs Labs: 09/17/17 06:49 09/18/17 07:13 PT 13.2 SECONDS (9.7-12.2) H 09/18/17 11:47 INR 1.2 09/18/17 11:47 APTT 30 SECONDS (21-34) 09/16/17 14:10 - Constitutional Appears: No Acute Distress - Head Exam Head Exam: NORMAL INSPECTION - Neurological Exam Neurological Exam: Alert, Awake, Oriented x3 Neuro motor strength exam: Left Upper Extremity: 5, Right Upper Extremity: 5, Left Lower Extremity: 4, Right Lower Extremity: 4 Additional comments: Neurological unchanged from previous examination. Assessment and Plan (1) TIA (transient ischemic attack) Assessment & Plan: Case discussed with Dr. Crawford, continue all current medical, physical, occupational, and speech therapies. Pending echocardiogram result which will determine which anticoagulant will be prescribed to the patient. Recommend to follow up upon discharge to monitor anticoagulant. Status: Acute
[2017-09-19 09:11] LABS: INR 1.3; PROTHROMBIN TIME 13.7 SECONDS (9.7-12.2)
[2017-09-19 09:16] LABS: ALB/GLOB RATIO 1.1 (1.0-2.1); ALBUMIN 3.9 g/dL (3.5-5.0)
--- NOTE | 2017-09-19 13:26 | CARD ---
APPROVED REPORT EKG Measurement Heart [id number] <Conclusion> Atrial fibrillation Abnormal ECG
--- NOTE | 2017-09-19 16:27 | CP.PCM.PN ---
<Madison Shelley - Last Filed: 09/19/17 16:28> Subjective - Date & Time of Evaluation Date of Evaluation: 09/19/17 Time of Evaluation: 16:28 - Subjective Subjective: Progress Note Patient seen and examined at bedside. No acute changes overnight. Patient denies fever, chills, nausea, vomiting diarrhea. Objective - Vital Signs/Intake and Output Vital Signs (last 24 hours): Temp Pulse Resp BP Pulse Ox 97.6 F 75 18 116/61 97 09/19/17 07:25 09/19/17 10:00 09/19/17 07:25 09/19/17 07:25 09/19/17 07:25 Intake and Output: 09/19/17 09/19/17 06:59 18:59 Intake Total 240 Balance 240 - Medications Medications: Current Medications Aspirin (Aspirin Chewable) 81 mg PO DAILY [facility] Last Admin: 09/19/17 11:16 Dose: 81 mg Enoxaparin Sodium (Lovenox) 60 mg SC Q12 [facility] Furosemide (Lasix) 20 mg PO Q24H [facility] Last Admin: 09/19/17 06:24 Dose: 20 mg Metoprolol Tartrate (Lopressor) 12.5 mg PO BIDBS [facility] Last Admin: 09/19/17 08:25 Dose: 12.5 mg Rosuvastatin Calcium (Crestor) 10 mg PO HS [facility] Last Admin: 09/18/17 21:32 Dose: 10 mg Warfarin Sodium (Coumadin) 7.5 mg PO 1800 [facility] Stop: 09/19/17 18:01 - Labs Labs: 09/17/17 06:49 09/19/17 08:51 PT 13.7 SECONDS (9.7-12.2) H 09/19/17 08:51 INR 1.3 09/19/17 08:51 APTT 30 SECONDS (21-34) 09/16/17 14:10 - Additional Findings Additional findings: - Constitutional Appears: Non-toxic, No Acute Distress - Head Exam Head Exam: ATRAUMATIC, NORMAL INSPECTION - Eye Exam Eye Exam: EOMI, Normal appearance Pupil Exam: NORMAL ACCOMODATION - ENT Exam ENT Exam: Mucous Membranes Moist - Neck Exam Neck exam: Negative for: Lymphadenopathy - Respiratory Exam Respiratory Exam: Clear to Auscultation Bilateral, NORMAL BREATHING PATTERN. absent: Decreased Breath Sounds, Rales, Rhonchi, Wheezes - Cardiovascular Exam Cardiovascular Exam: REGULAR RHYTHM, +S1, +S2. absent: Systolic Murmur - GI/Abdominal Exam GI & Abdominal Exam: Normal Bowel Sounds, Soft. absent: Guarding, Rigid, Tenderness - Extremities Exam Extremities exam: Positive for: normal capillary refill, normal inspection. tenderness to palpation along. Negative for: pedal edema, tenderness - Back Exam Back exam: NORMAL INSPECTION. absent: CVA tenderness (L), CVA tenderness (R) - Neurological Exam Neurological exam: Abnormal Gait (R hip replacement 2011), Alert, CN II-XII Intact, Oriented x3, Reflexes Normal Additional comments: no facial droop appreciated. signs of TIA resolved in ED - Psychiatric Exam Psychiatric exam: Normal Affect, Normal Mood - Skin Skin Exam: Dry, Intact, Normal Color, Warm Assessment and Plan - Assessment and Plan (Free Text) Assessment: Assessment and Plan - Assessment and Plan (Free Text) Assessment: 77 yr old woman with TIA, wtih normal neurological exam who has a history of atrial fibrillation. TIA (Transient Ischemic Attack) Code stroke called Minor stroke with L facial droop - 2 points, resolved soon after presentation in ED Neuro consult, Dr. Crawford (saw pt in ED, sx's completely resolved) HAS-BLED = 4pts, high risk [id number] = 7pt, 11.2% ASA 81mg PO qD, received ASA 325mg once in ED Crestor 10mg PO qD Lipid panel - WNL, see EMR 09/16 CT head: no evidence of infarct. no intracranial hemorrhage 09/16 CTA head: partially calcified atherosclerotic plaque changes seen along bilateral carotid bifurcations and cavernous carotid segments with mild narrowing. No evidence of occlusion of proximal margins of distal branches of anterior, middle and posterior cerebral arteries. lumbar spine multilevel degenerative changes. grade 1 retrolisthesis of L3 on L4, Grade 1 anterolisthesis of L4 on L5 Patient has MRI ordered but history of right hip surgery. Lumbar spine xray and hip pelvis xray ordered hip/pelvis xray: right hip arthroplasty f/u MRI brain + MRA head/neck (w/o contrast) Hx Atrial Fibrillation Patient noted to be in AFib upon presentation to ED Cardiac consult, Dr. Alejandre Lovenox 65mg SC q12 (received Lovenox 70mg SC once in ED) Hold coumadin 5mg PO qD (pt stopped taking 01/2017, lost medical f/u with PMD) Hold diltiazem 30mg PO TID (pt stopped taking 01/2017, lost medical f/u with PMD) will resume diltiazem if necessary HR regular, avoid CaCh-Yomaira in setting of reduced EF. CXR 09/16 - cardiomegally, otherwise negative. see full report f/u Echo -> if no valvular abnormalities, switch Lovenox to coumadin coumadin 5mg PO Q ONCE tonight AM INR daily. INR goal of 2-3 Hx Systolic HF (HFrEF) Cardiac consult, Dr. Alejandre CXR: cardiomegaly. no pulmonary vascular derrangement or active pulmonary disease. last Echo 08/24/16 - EF 40% with mild MR and flattened septum, see full report f/u ECHO 09/17 follow up final read. unofficial read shows no systolic dysfunction Strict I/O Daily weights Lasix 20mg PO q24H - 7am (hold for SBP < 100) Zestril 5mg PO q24H - 7pm hx Hypothyroidism, resolved Patient to discontinue synthroid (home medication until following up with PMD in the future) hold home Synthroid 50mcg qd (Patient stopped taking this medication in 2016 because she lost medical f/u with PMD) Hx Left Lower Extremity DVT no LE edema, no pain bilateral LE venous duplex: negative Chronic Cholecystitis Patient declined surgical intervention last admission 08/2016 (w/ Dr. Lazcano) will monitor Prophylaxis no GI prophylaxis indicated Lovenox 65mg SC q12, to be discontinued when INR comes to goal at 2-3 heart healthy diet, vegetarian, 2g Na Case discussed with Dr. Emigdio Shelley DO PGY1 <Ze Irizarry - Last Filed: 09/19/17 18:33> Objective - Vital Signs/Intake and Output Vital Signs (last 24 hours): Temp Pulse Resp BP Pulse Ox 97.5 F L 79 20 91/55 L 98 09/19/17 17:12 09/19/17 17:12 09/19/17 17:12 09/19/17 17:12 09/19/17 17:12 Intake and Output: 09/19/17 09/19/17 06:59 18:59 Intake Total 240 360 Balance 240 360 - Medications Medications: Current Medications Aspirin (Aspirin Chewable) 81 mg PO DAILY [facility] Last Admin: 09/19/17 11:16 Dose: 81 mg Enoxaparin Sodium (Lovenox) 60 mg SC Q12 [facility] Furosemide (Lasix) 20 mg PO Q24H [facility] Last Admin: 09/19/17 06:24 Dose: 20 mg Metoprolol Tartrate (Lopressor) 12.5 mg PO BIDBS [facility] Last Admin: 09/19/17 16:53 Dose: Not Given Rosuvastatin Calcium (Crestor) 10 mg PO HS [facility] Last Admin: 09/18/17 21:32 Dose: 10 mg - Labs Labs: 09/17/17 06:49 09/19/17 08:51 PT 13.7 SECONDS (9.7-12.2) H 09/19/17 08:51 INR 1.3 09/19/17 08:51 APTT 30 SECONDS (21-34) 09/16/17 14:10 Attending/Attestation - Attestation I have personally seen and examined this patient.: Yes I have fully participated in the care of the patient.: Yes I have reviewed all pertinent clinical information, including history, physical exam and plan: Yes Notes (Text): 09/19/17 18:32 Patient was seen and examined at 8:15 AM. Exam, assessment and plan gone over with the resident. As long as INR is approaching 2, we will discharge patient. Ze Irizarry D.O.
--- NOTE | 2017-09-19 17:16 | CARD ---
APPROVED REPORT EKG Measurement Heart [id number] <Conclusion> Atrial fibrillation Abnormal ECG
[2017-09-20 06:33] LABS: BASO % 0.4 % (0.0-2.0); EOS # 0.1 K/uL (0.0-0.7); EOS % 1.6 % (0.0-4.0); HEMOGLOBIN 12.2 g/dL (11.0-16.0); LYMPH # 2.3 K/uL (1.0-4.3); LYMPH % 34.9 % (20.0-40.0); MEAN CELL VOLUME 94.7 fL (81.0-99.0); MEAN CORPUSCULAR HEMOGLOBIN 32.1 pg (27.0-31.0); MEAN CORPUSCULAR HGB CONC 33.9 g/dL (33.0-37.0); MEAN PLATELET VOLUME 9.3 fL (7.2-11.7); MONO # 0.8 K/uL (0.0-0.8); MONO % 12.2 % (0.0-10.0); NEUT # 3.4 K/uL (1.8-7.0); NEUT % 50.9 % (50.0-75.0); NRBC % 0.1 % (0.0-2.0); RBC 3.8 Mil/uL (3.80-5.20); RED CELL DISTRIBUTION WIDTH 15.5 % (11.5-14.5); WHITE BLOOD COUNT 6.6 K/uL (4.8-10.8)
[2017-09-20 06:34] LABS: INR 1.6; PROTHROMBIN TIME 17.1 SECONDS (9.7-12.2)
[2017-09-20 06:44] LABS: ALB/GLOB RATIO 1.1 (1.0-2.1); ALBUMIN 3.6 g/dL (3.5-5.0); ALT/SGPT 21 U/L (9-52); AST/SGOT 23 U/L (14-36); BLOOD UREA NITROGEN 24 mg/dL (7-17); CALCIUM 8.7 mg/dl (8.6-10.4); GFR AFRICAN-AMERICAN > 60; GFR NON-AFRICAN AMERICAN 54
[2017-09-20] MEDS: Enoxaparin 60 mg Syringe SC SCH ×2 (09:08→21:08)
--- NOTE | 2017-09-20 13:18 | CP.PCM.PN ---
<SherwinPamela - Last Filed: 09/20/17 17:13> Subjective - Date & Time of Evaluation Date of Evaluation: 09/20/17 Time of Evaluation: 08:00 - Subjective Subjective: PGY 2 medicine progress note for Dr. Emigdio Irizarry: Patient was seen and examined at bedside. No acute changes overnight. She was complaining of chronic pain in her hip from arthritis but states it was slightly better today. Patient denies fever, chills, nausea, vomiting diarrhea. She reports having regular bowel movement and is ambulating well. Tolerating diet. No signs of bleeding. Objective - Vital Signs/Intake and Output Vital Signs (last 24 hours): Temp Pulse Resp BP Pulse Ox 97.5 F L 94 H 20 118/58 L 98 09/20/17 07:30 09/20/17 08:00 09/20/17 07:30 09/20/17 07:30 09/20/17 07:30 Intake and Output: 09/20/17 09/20/17 06:59 18:59 Intake Total 400 Balance 400 - Medications Medications: Current Medications Aspirin (Aspirin Chewable) 81 mg PO DAILY [facility] Last Admin: 09/20/17 09:08 Dose: 81 mg Enoxaparin Sodium (Lovenox) 60 mg SC Q12 [facility] Last Admin: 09/20/17 09:08 Dose: 60 mg Furosemide (Lasix) 20 mg PO Q24H [facility] Last Admin: 09/20/17 06:34 Dose: 20 mg Metoprolol Tartrate (Lopressor) 12.5 mg PO BIDBS [facility] Last Admin: 09/20/17 08:00 Dose: 12.5 mg Rosuvastatin Calcium (Crestor) 10 mg PO HS [facility] Last Admin: 09/19/17 21:07 Dose: 10 mg Warfarin Sodium (Coumadin) 7.5 mg PO 1800 [facility] Stop: 09/20/17 18:01 - Labs Labs: 09/20/17 06:20 09/20/17 06:20 PT 17.1 SECONDS (9.7-12.2) H 09/20/17 06:20 INR 1.6 09/20/17 06:20 APTT 30 SECONDS (21-34) 09/16/17 14:10 - Constitutional Appears: Non-toxic, No Acute Distress - Head Exam Head Exam: ATRAUMATIC, NORMAL INSPECTION - Eye Exam Eye Exam: EOMI Pupil Exam: NORMAL ACCOMODATION - ENT Exam ENT Exam: Mucous Membranes Moist - Respiratory Exam Respiratory Exam: Clear to Ausculation Bilateral, NORMAL BREATHING PATTERN - GI/Abdominal Exam GI & Abdominal Exam: Soft, Normal Bowel Sounds. absent: Distended, Firm, Guarding, Tenderness - Extremities Exam Extremities Exam: Normal Inspection - Back Exam Back Exam: NORMAL INSPECTION. absent: CVA tenderness (L), CVA tenderness (R), paraspinal tenderness - Neurological Exam Neurological Exam: Alert, Awake, Oriented x3 Additional comments: no facial droop appreciated. signs of TIA resolved in ED - Psychiatric Exam Psychiatric exam: Normal Affect, Normal Mood Assessment and Plan - Assessment and Plan (Free Text) Assessment: 77 yr old woman with TIA, with normal neurological exam who has a history of atrial fibrillation. Atrial Fibrillation Patient noted to be in AFib upon presentation to ED On Coumadin therapy, INR 1.6 --> will give 7.5 mg tonight, f/u INR tomorrow Metoprolol Tartate 12.5mg PO BID Cardiac consult, Dr. Alejandre Lovenox 65mg SC q12, will dc once INR therapeutic CXR 09/16 - cardiomegally, otherwise negative. see full report Echo - wnl normal EF AM INR daily. INR goal of 2-3 TIA (Transient Ischemic Attack) Code stroke called, symptoms have resolved Minor stroke with L facial droop - 2 points, resolved soon after presentation in ED Neuro consult, Dr. Crawford (saw pt in ED, sx's completely resolved) HAS-BLED = 4pts, high risk [id number] = 7pt, 11.2% ASA 81mg PO qD Crestor 10mg PO qD Lipid panel - WNL, see EMR 09/16 CT head: no evidence of infarct. no intracranial hemorrhage 09/16 CTA head: partially calcified atherosclerotic plaque changes seen along bilateral carotid bifurcations and cavernous carotid segments with mild narrowing. No evidence of occlusion of proximal margins of distal branches of anterior, middle and posterior cerebral arteries. lumbar spine multilevel degenerative changes. grade 1 retrolisthesis of L3 on L4, Grade 1 anterolisthesis of L4 on L5 Patient has MRI ordered but history of right hip surgery. Lumbar spine xray and hip pelvis xray ordered hip/pelvis xray: right hip arthroplasty f/u MRI brain + MRA head/neck (w/o contrast) Hx. Systolic HF (HFrEF), resolved now has RESOLVED Cardiac consult, Dr. Alejandre CXR: cardiomegaly. no pulmonary vascular derrangement or active pulmonary disease. Echo 08/24/16 - EF 40% with mild MR and flattened septum, see full report Repeat ECHO 09/17 normal EF Strict I/O Daily weights Lasix 20mg PO q24H - 7am (hold for SBP < 100) Hypothyroidism, resolved Patient to discontinue synthroid (home medication until following up with PMD in the future) hold home Synthroid 50mcg qd (Patient stopped taking this medication in 2016 because she lost medical f/u with PMD) Hx Left Lower Extremity DVT no LE edema, no pain bilateral LE venous duplex: negative Chronic Cholecystitis Patient declined surgical intervention last admission 08/2016 (w/ Dr. Lazcano) Prophylaxic Measures no GI prophylaxis indicated Lovenox 65mg SC q12, to be discontinued when INR comes to goal at 2-3 heart healthy diet, vegetarian, 2g Na Dispo - will discharge once INR is therapeutic (goal 2-3) <Ze Irizarry - Last Filed: 09/20/17 18:30> Objective - Vital Signs/Intake and Output Vital Signs (last 24 hours): Temp Pulse Resp BP Pulse Ox 98.0 F 79 20 109/53 L 97 09/20/17 15:30 09/20/17 16:47 09/20/17 15:30 09/20/17 15:30 09/20/17 15:30 Intake and Output: 09/20/17 09/20/17 06:59 18:59 Intake Total 400 300 Balance 400 300 - Medications Medications: Current Medications Aspirin (Aspirin Chewable) 81 mg PO DAILY [facility] Last Admin: 09/20/17 09:08 Dose: 81 mg Enoxaparin Sodium (Lovenox) 60 mg SC Q12 [facility] Last Admin: 09/20/17 09:08 Dose: 60 mg Furosemide (Lasix) 20 mg PO Q24H [facility] Last Admin: 09/20/17 06:34 Dose: 20 mg Metoprolol Tartrate (Lopressor) 12.5 mg PO BIDBS [facility] Last Admin: 09/20/17 16:22 Dose: Not Given Rosuvastatin Calcium (Crestor) 10 mg PO HS [facility] Last Admin: 09/19/17 21:07 Dose: 10 mg - Labs Labs: 09/20/17 06:20 09/20/17 06:20 PT 17.1 SECONDS (9.7-12.2) H 09/20/17 06:20 INR 1.6 09/20/17 06:20 APTT 30 SECONDS (21-34) 09/16/17 14:10 Attending/Attestation - Attestation I have personally seen and examined this patient.: Yes I have fully participated in the care of the patient.: Yes I have reviewed all pertinent clinical information, including history, physical exam and plan: Yes Notes (Text): 09/20/17 18:24 Patient was seen and examined with Resident Dr. Courtney. Exam, assessment and plan were gone over with Dr. Courtney Also on ROS: Chronic Right Hip and Right Upper Leg pain Also on Exam: Cardio: Irregularly irregular rhythm Also on Assessment and Plan: Chronic Right Hip and Right Upper Leg Pain Will give 7.5 mg Coumadin tonight and as long as INR is closer to 2 will discharge patient morning 09/21/17. Spoke with Son Geo via phone [phone] and updated him as to patient status and plan for likely discharge morning 09/21/17. Ze Irizarry D.O.
[2017-09-21 07:36] LABS: BASO % 0.6 % (0.0-2.0); EOS # 0.1 K/uL (0.0-0.7); HEMOGLOBIN 12.3 g/dL (11.0-16.0); LYMPH # 2.1 K/uL (1.0-4.3); LYMPH % 32.6 % (20.0-40.0); MEAN CELL VOLUME 94.3 fL (81.0-99.0); MEAN CORPUSCULAR HEMOGLOBIN 32.3 pg (27.0-31.0); MEAN CORPUSCULAR HGB CONC 34.2 g/dL (33.0-37.0); MEAN PLATELET VOLUME 8.7 fL (7.2-11.7); MONO # 0.8 K/uL (0.0-0.8); MONO % 12.2 % (0.0-10.0); NEUT # 3.4 K/uL (1.8-7.0); NEUT % 53.6 % (50.0-75.0); NRBC % 0.1 % (0.0-2.0); RBC 3.8 Mil/uL (3.80-5.20); RED CELL DISTRIBUTION WIDTH 15.1 % (11.5-14.5); WHITE BLOOD COUNT 6.4 K/uL (4.8-10.8)
[2017-09-21 07:50] LABS: INR 2.4; PROTHROMBIN TIME 25.9 SECONDS (9.7-12.2)
[2017-09-21 07:56] VITALS: RESP 18
[2017-09-21 08:16] VITALS: BP 131/87; PULSE 79; TEMP 98
[2017-09-21 08:18] LABS: ALB/GLOB RATIO 1.2 (1.0-2.1); ALBUMIN 4.1 g/dL (3.5-5.0); ALT/SGPT 11 U/L (9-52); AST/SGOT 41 U/L (14-36); BLOOD UREA NITROGEN 20 mg/dL (7-17); CALCIUM 8.3 mg/dl (8.6-10.4); GFR AFRICAN-AMERICAN > 60; GFR NON-AFRICAN AMERICAN 54
--- NOTE | 2017-09-21 08:58 | CP.PCM.PN ---
Subjective - Date & Time of Evaluation Date of Evaluation: 09/21/17 Time of Evaluation: 08:30 - Subjective Subjective: Hospitalist Progress Note Patient was seen and examined at 8:30 AM 09/21/17 661 B Upon FULL ROS NO dysphagia/odynopahgia NO soreness in throat NO cough NO sinus/nasal congestion NO fever/chills (+) Chronin Right Hip and Right Upper Lateral Leg Pain NO chest pain/palpations NO SOB NO abdominal pain NO n/v/d/c NO burning pain with urination NO BOLAÑOS NO lightheadedness/dizziness NO paresthesias Exam: General: AAOX3, NAD HEENT: NCA, EOMI, PERRLA, NO cervical/supraclavicular/submandibular lymphadenopathy, NO pharyngeal erythema/exudate, Nasal Turbinates are nonerythematous/nonedematous, Oral Mucosa is moist Cardio: Irregularly Irregular Resp: CTA B/L, NO R/R/W GI: BSx4, Soft, NT, NO HSM, NO guarding/rebound tenderness Ext: Pulses are strong and equal, Capillary Refill is 2 seconds, NO edema Neuro: CN II through XII are grossly intact Assessments: 1). TIA Presenting symptoms have resolved Atorvastatin and ASA as outpatient See Head/Neck/Brain imaging reports for full details 2). Hx Atrial Fibrillation INR is therapeutic with goal of 2 to 3 Warfarin 5 mg daily as outpatient and continue Metoprolol Will need weekly INR through the [facility] or [facility] until stable 3). Hx Systolic HF (HFrEF) This as per Echo September 2016 Repeat Echo this admission does NOT show HFrEF Discoontinue Lasix 4). Questionable Hypothyroidism This as per admission in September 2016 Patient has not been taking Levothyroxine since January 2017 and the TSH and T4 are WNL this admission Discontinue Levothyroxine 5). Hx Left Leg DVT This as per admission in September 2016 Repeat Venous Dopplers this admission does not show DVT 6). 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 I have explained thoroughly everyday to patient and to Son Geo via phone the importance of taking medications as prescribed and the need for follow up through either the [facility] or [facility]. The following instructions were explained to patient and Son Geo (via phone) and copy will need to be provided to patient/family upon discharge: 1). You will need to follow up with either the [facility] ([phone]) or the [facility] ([phone]) for coordination of your health care, for future refills on your medications, for blood work, and referrals for any specialists. At either clinic, the physicians there will be your primary care providers. Please schedule an appointment to take place within 7 days at either clinic (which ever one will give you the appointment soonest). 2). You were provided with a 30 days supply prescription for the following medications. Please have these prescriptions filled at your pharmacy on your way home from the hospital. You must get future prescriptions through either the [facility] or the [facility]. These are the only medications that you should be taking: Aspirin 81 mg, 1 tablet by mouth once daily (7 AM) Warfarin 5 mg, 1 tablet by mouth once daily (7 PM) Metoprolol Tartrate 12.5 mg, 1 tablet by mouth twice daily (7 AM and 7 PM) Atorvastatin 20 mg, 1 tablet by mouth once daily (7 PM) 3). As explained to you during your admission to the hospital, you have an abnormal heart rhythm that places you at risk for blood clots that can lead to a stroke, heart attack, or other organ failure. Therefore you must be on a blood thinner such as Warfarin. Being on this drug places you at risk for bleeding easily. Therefore you should be very careful with activities that can lead to falls that can lead to bleeding. 4). Please follow the above instructions. Failure to do so will have serious consequences to your health. 5). Please take care and be well. Ze Irizarry D.O. Objective - Vital Signs/Intake and Output Vital Signs (last 24 hours): Temp Pulse Resp BP Pulse Ox 98 F 79 18 131/87 97 09/21/17 08:15 09/21/17 08:15 09/21/17 08:15 09/21/17 08:15 09/21/17 08:15 - Medications Medications: Current Medications Aspirin (Aspirin Chewable) 81 mg PO DAILY [facility] Last Admin: 09/20/17 09:08 Dose: 81 mg Enoxaparin Sodium (Lovenox) 60 mg SC Q12 [facility] Last Admin: 09/20/17 21:08 Dose: 60 mg Furosemide (Lasix) 20 mg PO Q24H [facility] Last Admin: 09/21/17 07:56 Dose: 20 mg Metoprolol Tartrate (Lopressor) 12.5 mg PO BIDBS [facility] Last Admin: 09/21/17 07:57 Dose: 12.5 mg Rosuvastatin Calcium (Crestor) 10 mg PO HS [facility] Last Admin: 09/20/17 21:08 Dose: 10 mg - Labs Labs: 09/21/17 07:25 09/21/17 07:25 PT 25.9 SECONDS (9.7-12.2) H D 09/21/17 07:25 INR 2.4 D 09/21/17 07:25 APTT 30 SECONDS (21-34) 09/16/17 14:10
[2017-09-21] MEDS: Enoxaparin 60 mg Syringe SC SCH (09:28)
--- NOTE | 2017-09-21 13:33 | CP.PCM.DIS ---
<SherwinPamela - Last Filed: 09/21/17 13:28> Provider - Provider Date of Admission: 09/16/17 15:58 Attending physician: Ze Irizarry MD Primary care physician: PMAlejandra: Namrata Consults: Dr. Alejandre - cardiology Dr. Bhandari - neurology Time Spent in preparation of Discharge (in minutes): 35 Diagnosis - Discharge Diagnosis (1) Atrial fibrillation Status: Acute (2) TIA (transient ischemic attack) Status: Acute Hospital Course - Lab Results Lab Results: Most Recent Lab Values WBC 6.4 K/uL (4.8-10.8) 09/21/17 07:25 RBC 3.80 Mil/uL (3.80-5.20) 09/21/17 07:25 Hgb 12.3 g/dL (11.0-16.0) 09/21/17 07:25 Hct 35.9 % (34.0-47.0) 09/21/17 07:25 MCV 94.3 fL (81.0-99.0) 09/21/17 07:25 MCH 32.3 pg (27.0-31.0) H 09/21/17 07:25 MCHC 34.2 g/dL (33.0-37.0) 09/21/17 07:25 RDW 15.1 % (11.5-14.5) H 09/21/17 07:25 Plt Count 206 K/uL (130-400) 09/21/17 07:25 MPV 8.7 fL (7.2-11.7) 09/21/17 07:25 Neut % (Auto) 53.6 % (50.0-75.0) 09/21/17 07:25 Lymph % (Auto) 32.6 % (20.0-40.0) 09/21/17 07:25 [place] % (Auto) 12.2 % (0.0-10.0) H 09/21/17 07:25 Eos % (Auto) 1.0 % (0.0-4.0) 09/21/17 07:25 Baso % (Auto) 0.6 % (0.0-2.0) 09/21/17 07:25 Neut # (Auto) 3.4 K/uL (1.8-7.0) 09/21/17 07:25 Lymph # (Auto) 2.1 K/uL (1.0-4.3) 09/21/17 07:25 [place] # (Auto) 0.8 K/uL (0.0-0.8) 09/21/17 07:25 Eos # (Auto) 0.1 K/uL (0.0-0.7) 09/21/17 07:25 Baso # (Auto) 0.0 K/uL (0.0-0.2) 09/21/17 07:25 PT 25.9 SECONDS (9.7-12.2) H D 09/21/17 07:25 INR 2.4 D 09/21/17 07:25 APTT 30 SECONDS (21-34) 09/16/17 14:10 Sodium 141 mmol/L (132-148) 09/21/17 07:25 Potassium 4.2 mmol/L (3.6-5.2) 09/21/17 07:25 Chloride 103 mmol/L (98-107) 09/21/17 07:25 Carbon Dioxide 30 mmol/L (22-30) 09/21/17 07:25 Anion Gap 12 (10-20) 09/21/17 07:25 BUN 20 mg/dL (7-17) H 09/21/17 07:25 Creatinine 1.0 mg/dL (0.7-1.2) 09/21/17 07:25 Est GFR ( Amer) > 60 09/21/17 07:25 Est GFR (Non-Af Amer) 54 09/21/17 07:25 POC Glucose (mg/dL) 104 mg/dL (65-110) 09/21/17 06:26 Random Glucose 98 mg/dL (65-105) 09/21/17 07:25 Hemoglobin A1c 5.9 % (4.2-6.5) 09/16/17 14:10 Calcium 8.3 mg/dl (8.6-10.4) L 09/21/17 07:25 Phosphorus 4.5 mg/dL (2.5-4.5) 09/21/17 07:25 Magnesium 2.0 mg/dL (1.6-2.3) 09/21/17 07:25 Total Bilirubin 0.8 mg/dL (0.2-1.3) 09/21/17 07:25 AST 41 U/L (14-36) H D 09/21/17 07:25 ALT 11 U/L (9-52) 09/21/17 07:25 Alkaline Phosphatase 105 U/L (38-126) 09/21/17 07:25 Troponin I < 0.0120 ng/mL (0.00-0.120) 09/16/17 14:10 Total Protein 7.4 g/dL (6.3-8.3) 09/21/17 07:25 Albumin 4.1 g/dL (3.5-5.0) 09/21/17 07:25 Globulin 3.3 gm/dL (2.2-3.9) 09/21/17 07:25 Albumin/Globulin Ratio 1.2 (1.0-2.1) 09/21/17 07:25 Triglycerides 76 mg/dL (0-149) D 09/16/17 14:10 Cholesterol 195 mg/dL (0-199) 09/16/17 14:10 LDL Cholesterol Direct 108 mg/dL (0-129) 09/16/17 14:10 HDL Cholesterol 57 mg/dL (30-70) 09/16/17 14:10 Free T4 1.21 ng/dL (0.78-2.19) 09/17/17 06:49 TSH 3rd Generation 4.60 mIU/L (0.46-4.68) 09/17/17 06:49 Urine Color Straw (YELLOW) 09/16/17 18:05 Urine Clarity Clear (Clear) 09/16/17 18:05 Urine pH 6.0 (5.0-8.0) 09/16/17 18:05 Ur Specific [place] 1.031 (1.003-1.030) H 09/16/17 18:05 Urine Protein Negative mg/dL (NEGATIVE) 09/16/17 18:05 Urine Glucose (UA) Normal mg/dL (Normal) 09/16/17 18:05 Urine Ketones Negative mg/dL (NEGATIVE) 09/16/17 18:05 Urine Blood 1+ (NEGATIVE) H 09/16/17 18:05 Urine Nitrate Negative (NEGATIVE) 09/16/17 18:05 Urine Bilirubin Negative (NEGATIVE) 09/16/17 18:05 Urine Urobilinogen Normal mg/dL (0.2-1.0) 09/16/17 18:05 Ur Leukocyte Esterase Trace Noah/uL (Negative) 09/16/17 18:05 Urine WBC (Auto) 2 /hpf (0-5) 09/16/17 18:05 Urine RBC (Auto) 3 /hpf (0-3) 09/16/17 18:05 Ur Squamous Epith Cells 1 /hpf (0-5) 09/16/17 18:05 Blood Type O POSITIVE 09/16/17 14:10 Antibody Screen Negative 09/16/17 14:10 - Hospital Course Hospital Course: PMHx: Afib, HTN, Systolic HF (HFrEF), hx LLE DVT, Hypothyroidism, Cholecystitis (chronic, pt refused surgery 08/2016) PSHx: R hip replacement 2011 Meds: none since 01/2017 Allergies: NKDA FamHx: unknown SocHx: denies ETOH, tobacco, or illicit drug use; lives at home with family; unemployed Speaks Gujarati PMD: Namrata (has not f/u since 01/2017) On admission: This 77 y/o female with PMHx of Afib, HTN, Systolic HF (HFrEF), hx LLE DVT, Hypothyroidism, Cholecystitis (chronic, pt refused surgery 08/2016) - is BIBA for evaluation of left sided facial droop since approx 1:15pm. As per family members at bedside, the patient was asymptomatic up until 12pm today when she was AAOx3, walking and talking without any issue. She was left alone at 12pm, and when her daughter in-law returned to her at approximately 1:15pm, she had difficulty arousing her and called 911. On arrival to the [facility] ED, the patient exhibited mild left facial droop and L Upper Extremity weakness. By 2:30pm, after return from CT scan to ED, her facial droop and UE weakness resolved. She admits to stopping her followup at the [facility] clinic this past December 2016, and stopping all her medications in January 2017 after running out them. She reports that she did not want to take any more medicine. During hospital Stay: Upon FULL ROS NO dysphagia/odynopahgia NO soreness in throat NO cough NO sinus/nasal congestion NO fever/chills (+) Chronin Right Hip and Right Upper Lateral Leg Pain NO chest pain/palpations NO SOB NO abdominal pain NO n/v/d/c NO burning pain with urination NO BOLAÑOS NO lightheadedness/dizziness NO paresthesias Exam: General: AAOX3, NAD HEENT: NCA, EOMI, PERRLA, NO cervical/supraclavicular/submandibular lymphadenopathy, NO pharyngeal erythema/exudate, Nasal Turbinates are nonerythematous/nonedematous, Oral Mucosa is moist Cardio: Irregularly Irregular Resp: CTA B/L, NO R/R/W GI: BSx4, Soft, NT, NO HSM, NO guarding/rebound tenderness Ext: Pulses are strong and equal, Capillary Refill is 2 seconds, NO edema Neuro: CN II through XII are grossly intact Assessments: 1). TIA Presenting symptoms have resolved - fasical droops Atorvastatin and ASA as outpatient See Head/Neck/Brain imaging reports for full details 09/16 CT head: no evidence of infarct. no intracranial hemorrhage 09/16 CTA head: partially calcified atherosclerotic plaque changes seen along bilateral carotid bifurcations and cavernous carotid segments with mild narrowing. No evidence of occlusion of proximal margins of distal branches of anterior, middle and posterior cerebral arteries. lumbar spine multilevel degenerative changes. grade 1 retrolisthesis of L3 on L4, Grade 1 anterolisthesis of L4 on L5 Patient has MRI ordered but history of right hip surgery. Lumbar spine xray and hip pelvis xray ordered hip/pelvis xray: right hip arthroplasty 2). Hx Atrial Fibrillation INR is therapeutic with goal of 2 to 3 Warfarin 5 mg daily as outpatient and continue Metoprolol Will need weekly INR through the [facility] or [facility] until stable Was bridged to Coumadin with Lovenox 3). Hx Systolic HF (HFrEF) This as per Echo September 2016 Repeat Echo this admission does NOT show HFrEF Discontinue Lasix 4). Questionable Hypothyroidism This as per admission in September 2016 Patient has not been taking Levothyroxine since January 2017 and the TSH and T4 are WNL this admission Discontinue Levothyroxine 5). Hx Left Leg DVT This as per admission in August/September 2016 Repeat Venous Dopplers this admission does not show DVT 6). 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 I have explained thoroughly everyday to patient and to Son Geo via phone the importance of taking medications as prescribed and the need for follow up through either the [facility] or [facility]. The following instructions were explained to patient and Son Geo (via phone) and copy will need to be provided to patient/family upon discharge: 1). You will need to follow up with either the [facility] ) or the [facility] ([phone]) for coordination of your health care, for future refills on your medications, for blood work, and referrals for any specialists. At either clinic, the physicians there will be your primary care providers. Please schedule an appointment to take place within 7 days at either clinic (which ever one will give you the appointment soonest). 2). You were provided with a 30 days supply prescription for the following medications. Please have these prescriptions filled at your pharmacy on your way home from the hospital. You must get future prescriptions through either the [facility] or the [facility]. These are the only medications that you should be taking: Aspirin 81 mg, 1 tablet by mouth once daily (7 AM) Warfarin 5 mg, 1 tablet by mouth once daily (7 PM) Metoprolol Tartrate 12.5 mg, 1 tablet by mouth twice daily (7 AM and 7 PM) Atorvastatin 20 mg, 1 tablet by mouth once daily (7 PM) 3). As explained to you during your admission to the hospital, you have an abnormal heart rhythm that places you at risk for blood clots that can lead to a stroke, heart attack, or other organ failure. Therefore you must be on a blood thinner such as Warfarin. Being on this drug places you at risk for bleeding easily. Therefore you should be very careful with activities that can lead to falls that can lead to bleeding. 4). Please follow the above instructions. Failure to do so will have serious consequences to your health. 5). Please take care and be well. *PLease note this is a summary of hospital events. Please see the EMR for full admission details. Discharge Exam - Head Exam Head Exam: ATRAUMATIC, NORMAL INSPECTION - Eye Exam Eye Exam: EOMI Pupil Exam: NORMAL ACCOMODATION - Respiratory Exam Respiratory Exam: NORMAL BREATHING PATTERN. absent: Accessory Muscle Use, Respiratory Distress - Cardiovascular Exam Cardiovascular Exam: Irregular Rhythm, +S1, +S2 - GI/Abdominal Exam GI & Abdominal Exam: Normal Bowel Sounds, Soft. absent: Tenderness - Extremities Exam Extremities exam: normal inspection - Back Exam Back exam: NORMAL INSPECTION - Neurological Exam Neurological exam: Alert, CN II-XII Intact, Normal Gait, Oriented x3 Additional comments: no facial droop appreciated. signs of TIA resolved in ED - Psychiatric Exam Psychiatric exam: Normal Affect, Normal Mood - Skin Skin Exam: Dry, Intact, Normal Color Discharge Plan - Discharge Medications Prescriptions: Aspirin [Aspirin Chewable] 81 mg PO DAILY #30 chew Atorvastatin [Lipitor] 20 mg PO DAILY #30 tab Metoprolol Tartrate [Lopressor] 12.5 mg PO BIDBS #60 tab Warfarin [Coumadin] 5 mg PO DAILY #30 tab - Follow Up Plan Condition: GOOD Disposition: HOME/ ROUTINE Instructions: Stroke (DC), Transient Ischemic Attack (DC), Lowering the Risk of Having Another Stroke Additional Instructions: The following instructions were explained to patient and Son Geo (via phone) and copy will need to be provided to patient/family upon discharge: 1). You will need to follow up with either the [facility] ([phone]) or the [facility] ([phone]) for coordination of your health care, for future refills on your medications, for blood work, and referrals for any specialists. At either clinic, the physicians there will be your primary care providers. Please schedule an appointment to take place within 7 days at either clinic (which ever one will give you the appointment soonest). 2). You were provided with a 30 days supply prescription for the following medications. Please have these prescriptions filled at your pharmacy on your way home from the hospital. You must get future prescriptions through either the [facility] or the [facility]. These are the only medications that you should be taking: Aspirin 81 mg, 1 tablet by mouth once daily (7 AM) Warfarin 5 mg, 1 tablet by mouth once daily (7 PM) Metoprolol Tartrate 12.5 mg, 1 tablet by mouth twice daily (7 AM and 7 PM) Atorvastatin 20 mg, 1 tablet by mouth once daily (7 PM) 3). As explained to you during your admission to the hospital, you have an abnormal heart rhythm that places you at risk for blood clots that can lead to a stroke, heart attack, or other organ failure. Therefore you must be on a blood thinner such as Warfarin. Being on this drug places you at risk for bleeding easily. Therefore you should be very careful with activities that can lead to falls that can lead to bleeding. 4). Please follow the above instructions. Failure to do so will have serious consequences to your health. 5). Please take care and be well. <Ze Irizarry - Last Filed: 09/21/17 22:08> Provider - Provider Date of Admission: 09/16/17 15:58 Attending physician: Ze Irizarry MD Time Spent in preparation of Discharge (in minutes): 40 Hospital Course - Lab Results Lab Results: Most Recent Lab Values WBC 6.4 K/uL (4.8-10.8) 09/21/17 07:25 RBC 3.80 Mil/uL (3.80-5.20) 09/21/17 07:25 Hgb 12.3 g/dL (11.0-16.0) 09/21/17 07:25 Hct 35.9 % (34.0-47.0) 09/21/17 07:25 MCV 94.3 fL (81.0-99.0) 09/21/17 07:25 MCH 32.3 pg (27.0-31.0) H 09/21/17 07:25 MCHC 34.2 g/dL (33.0-37.0) 09/21/17 07:25 RDW 15.1 % (11.5-14.5) H 09/21/17 07:25 Plt Count 206 K/uL (130-400) 09/21/17 07:25 MPV 8.7 fL (7.2-11.7) 09/21/17 07:25 Neut % (Auto) 53.6 % (50.0-75.0) 09/21/17 07:25 Lymph % (Auto) 32.6 % (20.0-40.0) 09/21/17 07:25 [place] % (Auto) 12.2 % (0.0-10.0) H 09/21/17 07:25 Eos % (Auto) 1.0 % (0.0-4.0) 09/21/17 07:25 Baso % (Auto) 0.6 % (0.0-2.0) 09/21/17 07:25 Neut # (Auto) 3.4 K/uL (1.8-7.0) 09/21/17 07:25 Lymph # (Auto) 2.1 K/uL (1.0-4.3) 09/21/17 07:25 [place] # (Auto) 0.8 K/uL (0.0-0.8) 09/21/17 07:25 Eos # (Auto) 0.1 K/uL (0.0-0.7) 09/21/17 07:25 Baso # (Auto) 0.0 K/uL (0.0-0.2) 09/21/17 07:25 PT 25.9 SECONDS (9.7-12.2) H D 09/21/17 07:25 INR 2.4 D 09/21/17 07:25 APTT 30 SECONDS (21-34) 09/16/17 14:10 Sodium 141 mmol/L (132-148) 09/21/17 07:25 Potassium 4.2 mmol/L (3.6-5.2) 09/21/17 07:25 Chloride 103 mmol/L (98-107) 09/21/17 07:25 Carbon Dioxide 30 mmol/L (22-30) 09/21/17 07:25 Anion Gap 12 (10-20) 09/21/17 07:25 BUN 20 mg/dL (7-17) H 09/21/17 07:25 Creatinine 1.0 mg/dL (0.7-1.2) 09/21/17 07:25 Est GFR ( Amer) > 60 09/21/17 07:25 Est GFR (Non-Af Amer) 54 09/21/17 07:25 POC Glucose (mg/dL) 104 mg/dL (65-110) 09/21/17 06:26 Random Glucose 98 mg/dL (65-105) 09/21/17 07:25 Hemoglobin A1c 5.9 % (4.2-6.5) 09/16/17 14:10 Calcium 8.3 mg/dl (8.6-10.4) L 09/21/17 07:25 Phosphorus 4.5 mg/dL (2.5-4.5) 09/21/17 07:25 Magnesium 2.0 mg/dL (1.6-2.3) 09/21/17 07:25 Total Bilirubin 0.8 mg/dL (0.2-1.3) 09/21/17 07:25 AST 41 U/L (14-36) H D 09/21/17 07:25 ALT 11 U/L (9-52) 09/21/17 07:25 Alkaline Phosphatase 105 U/L (38-126) 09/21/17 07:25 Troponin I < 0.0120 ng/mL (0.00-0.120) 09/16/17 14:10 Total Protein 7.4 g/dL (6.3-8.3) 09/21/17 07:25 Albumin 4.1 g/dL (3.5-5.0) 09/21/17 07:25 Globulin 3.3 gm/dL (2.2-3.9) 09/21/17 07:25 Albumin/Globulin Ratio 1.2 (1.0-2.1) 09/21/17 07:25 Triglycerides 76 mg/dL (0-149) D 09/16/17 14:10 Cholesterol 195 mg/dL (0-199) 09/16/17 14:10 LDL Cholesterol Direct 108 mg/dL (0-129) 09/16/17 14:10 HDL Cholesterol 57 mg/dL (30-70) 09/16/17 14:10 Free T4 1.21 ng/dL (0.78-2.19) 09/17/17 06:49 TSH 3rd Generation 4.60 mIU/L (0.46-4.68) 09/17/17 06:49 Urine Color Straw (YELLOW) 09/16/17 18:05 Urine Clarity Clear (Clear) 09/16/17 18:05 Urine pH 6.0 (5.0-8.0) 09/16/17 18:05 Ur Specific [place] 1.031 (1.003-1.030) H 09/16/17 18:05 Urine Protein Negative mg/dL (NEGATIVE) 09/16/17 18:05 Urine Glucose (UA) Normal mg/dL (Normal) 09/16/17 18:05 Urine Ketones Negative mg/dL (NEGATIVE) 09/16/17 18:05 Urine Blood 1+ (NEGATIVE) H 09/16/17 18:05 Urine Nitrate Negative (NEGATIVE) 09/16/17 18:05 Urine Bilirubin Negative (NEGATIVE) 09/16/17 18:05 Urine Urobilinogen Normal mg/dL (0.2-1.0) 09/16/17 18:05 Ur Leukocyte Esterase Trace Noah/uL (Negative) 09/16/17 18:05 Urine WBC (Auto) 2 /hpf (0-5) 09/16/17 18:05 Urine RBC (Auto) 3 /hpf (0-3) 09/16/17 18:05 Ur Squamous Epith Cells 1 /hpf (0-5) 09/16/17 18:05 Blood Type O POSITIVE 09/16/17 14:10 Antibody Screen Negative 09/16/17 14:10 Attending/Attestation - Attestation I have personally seen and examined this patient.: Yes I have fully participated in the care of the patient.: Yes I have reviewed all pertinent clinical information, including history, physical exam and plan: Yes
[2017-09-22 08:49] VITALS: O2SAT 100
== END 2017-09-21 10:02 | disposition home or self-care (01) | DRG 69 ==
LOC: C.ER 13:56 → C.9E 15:58 → C.6T 17:20
PROVIDERS: ADMIT Hospitalist; ATTEND Family Medicine
DX: G45.9 Transient cerebral ischemic attack, unspecified (principal); I48.2 Chronic atrial fibrillation; I50.22 Chronic systolic (congestive) heart failure; E03.9 Hypothyroidism, unspecified; G89.29 Other chronic pain; I05.0 Rheumatic mitral stenosis; I11.0 Hypertensive heart disease with heart failure; K81.1 Chronic cholecystitis; M19.90 Unspecified osteoarthritis, unspecified site; M43.16 Spondylolisthesis, lumbar region; Z96.641 Presence of right artificial hip joint; Z86.718 Personal history of other venous thrombosis and embolism; Z86.73 Personal history of transient ischemic attack (TIA), and cerebral infarction without residual deficits; Z91.14 Patient's other noncompliance with medication regimen